=== PATIENT | female | born 1945 | race Caucasian/White ===

== ENCOUNTER → 2017-07-18 | Outpatient (CLI) | payer MEDICARE, BC ==
[~2017-07-18] MED LIST: ACETAMINOPHEN325 M1 PO; ALPRAZOLAM0.25 MG PO; BACTRIM DS TAB1 EACH PO; BENADRYL PO; BENTYL10 MG PO; CALCIUM + VITA1 EACH PO; CALCIUM 500+D1 EACH PO; CARAFATE1 GM/10 ML PO; CARVEDILOL3.125 MG PO; CATAPRES0.1 MG PO; CEFUROXIME250 MG PO; CHEWABLE MULTI1 EAC1 PO; COZAAR25 MG PO; CYANOCOBAL1000 MCG/M IM; EVISTA60 MG PO; FAMOTIDINE20 MG PO; FIORINAL 50-321 EACH PO; FLUOXETINE HCL20 MG PO; FUROSEMIDE40 MG PO; GABAPENTIN300 MG PO; HYDROXYZINE HCL25 MG PO; HYDROXYZINE PAM25 MG PO; JUICE PLUS FIBRE PO; JUICE PLUS PO; LEVSIN0.125 MG PO; LIDOCAINE 5% PATCH TOP; LIDODERM PATCH1 EA TP; MELOXICAM7.5 MG PO; MEPERIDINE HCL50 M1 PO; MULTIVITAMINS1 EAC7 PO; MYLANTA SUSP PO; PEPCID20 MG PO; PHENERGAN SUPP25 MG PR; PREDNISONE20 MG PO; PROAIR HFA INH8.5 GM INH; PROBIOTIC & AC1 EACH PO; PROBIOTIC COMP1 EACH PO; PROMETHEGAN12.5 MG RC; PROTEIN; PROTONIX40 MG PO; ROLOXIFENE PO; TEMAZEPAM15 MG PO; TYLENOL500 MG PO; VERAPAMIL HCL120 MG PO; Z VERAPAMIL HCL PO; Z.0.CIPRO500 MG PO; Z.0.LORAZEPAM0.5 MG PO; Z.0.PHENERGAN SUPP25 PR; Z.0.PROTONIX40 MG PO; Z.0.TEMAZEPAM15 MG PO; Z.1.FLUOXETINE HCL20 PO; ZOFRAN ODT4 MG PO; [UNRECOGNIZED DRUG - OTHER] IM; [UNRECOGNIZED DRUG - OTHER] PO; [UNRECOGNIZED DRUG - OTHER] PO; [UNRECOGNIZED DRUG - OTHER] PO; albuteral INH; benadryl PO
--- NOTE | 2017-07-18 15:05 | Diagnostic Imaging Report ---
PROCEDURE: C-SPINE AP AND LAT WITH FLEX AND EXT COMPARISON: Cervical spine series 04/05/17. INDICATIONS: EVALUATE FUSION STATUS FINDINGS: Cervical vertebral bodies can be visualized to the level of C6. The patient is status post ACDF at C4-5 and C6-7. These screws and hardware at C4-5 are stable without surrounding lucency to suggest loosening. The fusion plate at C6-7 is incompletely imaged on lateral image. The screws in C6 are intact without surrounding lucency to suggest loosening. The plate is intact the AP image. There is bony fusion from C4-C6 and likely C7. There is no evidence of motion with flexion or extension. There is mild posterior disc space narrowing of C3-4 without osteophytic lipping. The facets and spinous processes are normally aligned. There is mild facet arthropathy at C2-3 and C3-4. 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 Alignment is maintained on AP image. The skull base and upper chest are unremarkable. CONCLUSION: 1. Incomplete visualization of the fusion plate at C6-7 on lateral image. Otherwise, cervical hardware is stable without evidence of loosening. Stable bony fusion from C4-C6/7. 2. No motion with flexion or extension. 3. Mild degenerative changes of the cervical spine as described above. No progression compared to previous exam. 4. No new findings. Dictated by: Brendan Medina M.D. on 07/18/2017 at 15:13 Electronically approved by: Brendan Medina M.D. on 07/18/2017 at 15:13
== END ==
LOC: RAD 14:08
PROVIDERS: ATTEND Neurological Surgery
DX: M50.20 Other cervical disc displacement, unspecified cervical region (principal); Z98.1 Arthrodesis status
CPT/HCPCS: 72050

== ENCOUNTER 2018-03-09 14:38 | Inpatient (IN) | payer MEDICARE, BC ==
[~2018-03-09] VITALS: Ht 165.1 cm; Wt 74.8 kg
[2018-03-09] MEDS ORDERED: HYDROMORPHONE 20MG/ NS 100ML IV STA (15:40)
[2018-03-09 15:43] LABS: BASOPHILS % 0.8 % (0.0-1.0); EOSINOPHILS # (AUTO) 0.1 (0.0-0.4); EOSINOPHILS % 1.6 % (0.0-6.0); HEMATOCRIT 33.6 % (34.2-44.1); HEMOGLOBIN 10.5 g/dL (12.0-16.0); LYMPHOCYTES # (AUTO) 1.3 (1.0-3.2); LYMPHOCYTES % 33.4 % (18.0-39.1); MEAN CORPUSCULAR HEMOGLOBIN 28.2 pg (28-32); MEAN CORPUSCULAR HGB CONC 31.3 g/dL (31-35); MEAN CORPUSCULAR VOLUME 90.3 fL (81-99); MONOCYTES # (AUTO) 0.4 (0.2-0.8); MONOCYTES % 11.5 % (4.4-11.3); NEUTROPHILS % 52.7 % (38.7-80.0); PLATELET COUNT 152 x10e3/uL (140-360); RED BLOOD COUNT 3.72 x10e6/uL (3.6-5.1); RED CELL DISTRIBUTION WIDTH 15.9 % (11.7-14.4)
[2018-03-09 15:53] LABS: INR 1.09; PROTHROMBIN TIME 13.3 seconds (11.9-14.5)
[2018-03-09 15:54] LABS: PARTIAL THROMBOPLASTIN TIME 29.9 seconds (23.8-35.5)
[2018-03-09] MEDS ORDERED: HYDROCODONE/APAP 10MG-325MG TAB PO ONE (16:00)
[2018-03-09 16:04] LABS: ALBUMIN 3.7 g/dL (3.5-5.0); ALBUMIN/GLOBULIN RATIO 1.4 (0.8-2.0); ANION GAP 12.6 mmol/L (8-16); CREATININE, SERUM 1.03 mg/dL (0.57-1.11); POTASSIUM 4.6 mmol/L (3.5-5.1)
[2018-03-09 16:10] LABS: CREATINE KINASE MB 2.7 ng/mL (0-5.0)
[2018-03-09] MEDS ORDERED: SODIUM CHLORIDE 0.9% 50ML 50 ML ONE (16:11)
[2018-03-09] MEDS ORDERED: IOPAMIDOL 370 MG/ML 200 ML INFUS..BTL INJ ONE (16:11)
--- NOTE | 2018-03-09 16:28 | Diagnostic Imaging Report ---
EXAMINATION: CHEST SINGLE (PORTABLE) INDICATION: \S\ERMD ORDER \S\[id number] \S\1520 \S\Y COMPARISON: Chest radiograph 01/10/2017 FINDINGS: AP view TUBES and LINES: None. LUNGS: Lungs are well inflated. Lungs are clear. There is no evidence of pneumonia or pulmonary edema. PLEURA: No pleural effusion or pneumothorax. HEART AND MEDIASTINUM: The cardiomediastinal silhouette is unremarkable.. BONES AND SOFT TISSUES: Unchanged fixation of the cervical spine with orthopedic hardware. Surgical clips overlying the left upper quadrant. UPPER ABDOMEN: No free air under the diaphragm. IMPRESSION: No acute thoracic abnormality. Interval resolution of the right lower lobe pneumonia. Signed by: Dr. Alla Crane M.D. on 03/09/2018 3:30 PM
[2018-03-09] MEDS ORDERED: HYDROMORPHONE 1MG/1ML INJ IV ONE (16:30)
[2018-03-09] MEDS ORDERED: DIPHENHYDRAMINE HCL INJ 50 MG/ML VIAL IV ONE (16:30)
[2018-03-09 16:41] LABS: BILIRUBIN,URINE NEGATIVE (NEGATIVE); CLARITY,URINE CLEAR (CLEAR); COLOR,URINE YELLOW (YELLOW); KETONES,URINE NEGATIVE (NEGATIVE); LEUKOCYTE ESTERASE ,URINE TRACE (NEGATIVE); NITRITE,URINE NEGATIVE (NEGATIVE); PROTEIN,URINE DIPSTICK NEGATIVE (NEGATIVE); URINE UROBILINOGEN 0.2 mg/dL (0.2 - 1)
[2018-03-09 16:42] LABS: BACTERIA,URINE RARE /HPF; EPITHELIAL CELLS,URINE RARE /LPF; RBC,URINE 0-5 /HPF (0-5); WBC,URINE (MAN) 0-5 /HPF (0-5)
[2018-03-09] MEDS: SODIUM CHLORIDE 0.9% 1000ML 1,000 ML IV SCH (17:00)
--- NOTE | 2018-03-09 18:02 | Diagnostic Imaging Report ---
EXAM: CT Abdomen and Pelvis WITH contrast INDICATION: \S\RUQ abdominal pain \S\Y COMPARISON: CT abdomen and pelvis 01/09/2017 TECHNIQUE: Abdomen and pelvis were scanned utilizing a multidetector helical scanner from the lung base to the pubic symphysis after administration of IV contrast. Coronal and sagittal reformations were obtained. Routine protocol was performed. Scan was performed when during portal venous phase. IV CONTRAST: 100 mL of Isovue-370 ORAL CONTRAST: Water RADIATION DOSE: Total DLP: 510.4 mGy*cm Estimated effective dose: (DLP x 0.015 x size factor) mSv COMPLICATIONS: None FINDINGS: LINES and TUBES: None. LOWER THORAX: Linear scarring in the left lower lobe is unchanged.9 interval resolution of the centrilobular pulmonary nodules consistent with resolving infection. Trace pericardial effusion. HEPATOBILIARY: No focal hepatic lesions. Persistent diffuse dilatation of the intra and extrahepatic ducts. The common bile measure 1.3 cm in diameter, unchanged. There is no hyperdensities within the bile ducts. GALLBLADDER: Cholecystectomy. SPLEEN: No splenomegaly. PANCREAS: The pancreatic head is not well visualized. There is atrophy of the pancreatic body and tail. There are multiple surgical clips within the anterior abdomen, anterior to the pancreas and the spleen, unchanged. ADRENALS: No adrenal nodules KIDNEYS/URETERS: Kidneys enhance symmetrically. No hydronephrosis. No cystic or solid mass lesions. No stones. GI TRACT: There is persistent distention of the colon, worse in the transverse measuring 6.3 cm in diameter and containing large amount of retained stool is suggestive of chronic constipation. There are a few loops of small bowel in the left abdomen that are also mildly distended measuring up to 2.8 cm on series 2, image 36, unchanged when compared to prior exam. Postsurgical changes in the right cecum. Postsurgical changes related to low rectal resection and bariatric surgery PELVIC ORGANS/BLADDER: Unchanged hysterectomy and bilateral oophorectomies. The urinary bladder is mildly distended. LYMPH NODES: No lymphadenopathy. VESSELS: The abdominal aorta and pelvic arteries are normal in caliber and associated with scattered atherosclerotic calcifications. The celiac trunk, a semi-, ARTIE, and single bilateral renal arteries are widely patent. PERITONEUM / RETROPERITONEUM: No free air or fluid. BONES: Degenerative changes of the lumbar spine. SOFT TISSUES: Postsurgical changes in the anterior abdominal wall with evidence of repair with mesh. Diastases of the rectus abdominis muscle and atrophy of the anterior abdominal wall. IMPRESSION: 1. Postsurgical changes related to low rectal resection and bariatric surgery, stable. 2. Persistent diffuse dilatation of the colon and few loops of small bowel in the left abdomen with large amount of retained stool suggestive of long-standing constipation. - No transition point identified. 3. Persistent intra and extrahepatic biliary duct dilatation more than expected after cholecystectomy. Consider further evaluation with MRI abdomen with and without contrast with MRCP. Signed by: Dr. Alla Crane M.D. on 03/09/2018 5:59 PM
[2018-03-09] MEDS ORDERED: ONDANSETRON HCL INJ 2 MG/ML VIAL IV PRN (20:15)
[2018-03-09 21:31] VITALS: BP_SYST 152; BP_SYST 193; BP_DIAS 72; BP_DIAS 91
[2018-03-09 22:26] VITALS: BP 159/72
[2018-03-10] VITALS (8 sets, daily range): BP systolic 132–184; BP diastolic 65–79
[2018-03-10] MEDS: SODIUM CHLORIDE 0.9% 1000ML 1,000 ML IV SCH ×3 (02:45→12:02)
[2018-03-10 05:13] LABS: BASOPHILS % 0.8 % (0.0-1.0); EOSINOPHILS # (AUTO) 0.1 (0.0-0.4); EOSINOPHILS % 2.8 % (0.0-6.0); HEMATOCRIT 33.5 % (34.2-44.1); HEMOGLOBIN 10.4 g/dL (12.0-16.0); LYMPHOCYTES % 37.8 % (18.0-39.1); MEAN CORPUSCULAR HEMOGLOBIN 28.7 pg (28-32); MEAN CORPUSCULAR VOLUME 92.3 fL (81-99); MONOCYTES # (AUTO) 0.3 (0.2-0.8); NEUTROPHILS # (AUTO) 1.2 (2.1-6.9); NEUTROPHILS % 46.2 % (38.7-80.0); PLATELET COUNT 147 x10e3/uL (140-360); RED BLOOD COUNT 3.63 x10e6/uL (3.6-5.1); RED CELL DISTRIBUTION WIDTH 15.9 % (11.7-14.4)
[2018-03-10 05:44] LABS: ALANINE AMINOTRANSFERASE 16 IU/L (0-55); ALBUMIN 3.4 g/dL (3.5-5.0); ALBUMIN/GLOBULIN RATIO 1.4 (0.8-2.0); ALKALINE PHOSPHATASE 94 IU/L (40-150); AMYLASE 138 U/L (25-125); ANION GAP 9.9 mmol/L (8-16); BLOOD UREA NITROGEN 12 mg/dL (7-26); BUN/CREATININE RATIO 14 (6-25); CALCIUM 8.5 mg/dL (8.4-10.2); CARBON DIOXIDE 22 mmol/L (22-29); CHLORIDE 106 mmol/L (98-107); CREATININE, SERUM 0.84 mg/dL (0.57-1.11); EST GLOMERULAR FILTRATION RATE > 60 ML/MIN (60-); GLUCOSE 76 mg/dL (74-118); LIPASE 10 U/L (8-78); POTASSIUM 3.9 mmol/L (3.5-5.1); SODIUM 134 mmol/L (136-145)
[2018-03-10] MEDS ORDERED: PANTOPRAZOLE 40 MG 10ML VIAL IV SCH (09:00)
[2018-03-10] MEDS ORDERED: PROMETHAZINE 25MG/ NS 50ML (IV) IV PRN (11:45)
[2018-03-10] MEDS: HYDROCODONE/APAP 5MG-325MG TAB PO PRN ×2 (12:15→18:36)
[2018-03-10] MEDS ORDERED: PROMETHAZINE HCL 25 MG SUPP PR PRN (12:45)
[2018-03-10] MEDS ORDERED: FUROSEMIDE 40 MG TAB PO PRN (12:45)
[2018-03-10] MEDS ORDERED: ONDANSETRON HCL 4 MG ORAL DISINTEGRATING TAB PO PRN (12:45)
--- NOTE | 2018-03-10 13:20 | History and Physical ---
CLINICAL HISTORY: This is a 72-year-old white woman with a complicated GI history admitted via the emergency room yesterday because of abdominal pains with radiation to the right shoulder. The emergency room physician had contacted Dr. Todd, and decision was made to admit the patient and to treat her with enema. 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 James Guevara. The patient apparently has not been seen since, and her wanted her to be seen as soon as possible. I was just notified about this case 10 minutes prior and am seeing the patient for Dr. Todd. PAST MEDICAL HISTORY: Remarkable for previous bariatric surgery, which was complicated by pain and scar tissue. There is history of gastrectomy and partial colectomy as well as cholecystectomy. She has had previous admissions for abdominal pains dating back to 2011. 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 She also has leukopenia, white count 2500. MEDICATIONS AT HOME: Include albuterol, alprazolam, calcium carbonate, Catapres, B12, Bentyl, famotidine, fluoxetine, furosemide, gabapentin, hydroxyzine, probiotic, Losartan, multivitamin, Zofran, Protonix, Phenergan and temazepam. PERSONAL AND SOCIAL HISTORY: There is history of smoking, but none recently. She denies alcohol or drug abuse. TRUE ALLERGIES: NONE KNOWN. REVIEW OF SYSTEMS: Noncontributory. PHYSICAL EXAMINATION GENERAL: She is alert and coherent. Still having abdominal pain. CARDIAC: Jugular veins are not distended. S1, S2 are regular. There is no appreciable murmur. LUNGS: Clear. ABDOMEN: Very tender. There is considerable guarding. Bowel sounds were present. EXTREMITIES: No cyanosis, clubbing or edema. LABORATORY STUDIES: CT scan showed a massive amount of stool suggestive of longstanding constipation. Postsurgical changes consistent with low rectal resection and bariatric surgery. There is extrahepatic bile duct dilatation more than expected after cholecystectomy. Consider MRCP. White count is 2500, hemoglobin 10.4, platelet count 147,000. INR is 1.09. Urinalysis: Trace leukocyte esterase. Sodium 134, BUN 12, creatinine 0.84, albumin 3.4, amylase 138, lipase 10. IMPRESSION 1. Consider choledocholithiasis with dilated bile duct and pain to the right shoulder. 2. Longstanding constipation and diarrhea. 3. History of bariatric surgery with associated complications. 4. History of lower colon resection. 5. Chronic scratching causing open wounds in the epigastric region. 6. Mild hyponatremia. 7. Leukopenia. 8. History of hypertension. 9. Anxiety. 10. Anemia. 11. Fibromyalgia. 12. Leukopenia. RECOMMENDATIONS: GI consultation. Relieve constipation. MRCP. Job#: [id number] cc:CHINA TODD MD
[2018-03-10] MEDS ORDERED: PEG (High)/E-LYTE SOLN 4,000 ML BTL PO ONE (13:30)
[2018-03-10] MEDS: GABAPENTIN 300 MG CAP PO SCH (13:51)
[2018-03-10] MEDS: FLUOXETINE HCL 20 MG CAP PO SCH (13:51)
[2018-03-10] MEDS: LACTOBACILLUS ACIDOPHILUS CAPSULE PO SCH (13:51)
[2018-03-10] MEDS: DICYCLOMINE HCL 10 MG CAP PO SCH ×3 (13:51→20:45)
[2018-03-10] MEDS: HYDROXYZINE HCL 25 MG TAB PO SCH (13:51)
[2018-03-10 14:21] LABS: CREATINE KINASE MB 2.8 ng/mL (0-5.0)
[2018-03-10] MEDS: POLYETHYLENE GLYCOL 3350 17 GM PACK PO SCH ×2 (15:31→20:45)
[2018-03-10] MEDS ORDERED: PANTOPRAZOLE SODIUM 40 MG SUSPDR.PKT PO SCH (16:30)
[2018-03-10] MEDS: LOSARTAN POTASSIUM 25 MG TAB PO SCH (17:23)
[2018-03-10] MEDS: FAMOTIDINE 20 MG TAB PO SCH (17:23)
[2018-03-10] MEDS: TEMAZEPAM 15 MG CAP PO SCH (20:45)
[2018-03-10] MEDS: CLONIDINE HCL 0.1 MG TAB PO SCH (20:45)
[2018-03-10] MEDS ORDERED: PANTOPRAZOLE 40 MG 10ML VIAL IV STA (20:47)
[2018-03-10] MEDS ORDERED: DONNATAL/LIDOCAINE/MAALOX 30 ML SUSP PO ONE (21:00)
[2018-03-11] MEDS: SODIUM CHLORIDE 0.9% 1000ML 1,000 ML IV SCH ×2 (04:03→16:03)
[2018-03-11] MEDS: HYDROCODONE/APAP 5MG-325MG TAB PO PRN ×3 (05:27→21:36)
[2018-03-11 05:30] VITALS: BP 131/62
--- NOTE | 2018-03-11 05:57 | Diagnostic Imaging Report ---
ADDENDUM #[address] from 03/09/2018 Signed by: Dr Ngozi Lares MD on 03/11/2018 5:16 AM ORIGINAL REPORT EXAM: MRI MRCP WO DATE: 03/10/2018 12:45 PM INDICATION: Dilated bile ducts, reported intractable vomiting and right upper quadrant pain. Reported normal bilirubin. COMPARISON: Recent CT from 2017 TECHNIQUE: Multiplanar, multisequence imaging of the abdomen was performed without IV administration of gadolinium. 3-D MRCP fat-saturated sequence was performed post contrast with MIP reformations. FINDINGS: Image quality is degraded by motion artifact. HEPATOBILIARY: Liver is normal in contour and signal. The patient is status post cholecystectomy. There is moderate intrahepatic and extrahepatic biliary ductal dilation, the common bile duct measuring up to 1.1 cm without evidence of obstructing stone or lesion. OTHER: Unremarkable appearance of the spleen, adrenal gland, and kidneys. A 1.5 cm cystic structure which appears contiguous with the proximal pancreatic duct (MRCP series 11 image 15) most likely reflects a side branch IPMN; no main pancreatic ductal dilation.. Susceptibility artifact related to prior gastric bypass and ventral hernia repair. No free fluid. IMPRESSION: Evaluation degraded by motion artifact 1. Moderate biliary ductal dilation, which can be normal status post cholecystectomy given reported normal bilirubin. No evidence of choledocholithiasis. 2. Likely 1.5 cm side branch IPMN of the pancreatic head; no main duct dilation. Attention on [address] or MRI/MRCP pancreas protocol. Signed by: Dr Ngozi Lares MD on 03/11/2018 4:46 AM
[2018-03-11 08:18] VITALS: BP 147/68
[2018-03-11] MEDS: POLYETHYLENE GLYCOL 3350 17 GM PACK PO SCH ×3 (09:00→20:44)
[2018-03-11] MEDS: FLUOXETINE HCL 20 MG CAP PO SCH (09:05)
[2018-03-11] MEDS: MULTIVITAMINS/MINERALS TAB PO SCH (09:05)
[2018-03-11] MEDS: FAMOTIDINE 20 MG TAB PO SCH ×2 (09:05→17:43)
[2018-03-11] MEDS: LOSARTAN POTASSIUM 25 MG TAB PO SCH ×2 (09:05→17:43)
[2018-03-11] MEDS: DICYCLOMINE HCL 10 MG CAP PO SCH ×4 (09:05→20:43)
[2018-03-11] MEDS: GABAPENTIN 300 MG CAP PO SCH (09:05)
[2018-03-11] MEDS: PANTOPRAZOLE 40 MG 10ML VIAL IV SCH ×2 (09:05→17:43)
[2018-03-11] MEDS: HYDROXYZINE HCL 25 MG TAB PO SCH (09:05)
[2018-03-11] MEDS: LACTOBACILLUS ACIDOPHILUS CAPSULE PO SCH (09:05)
[2018-03-11 11:34] VITALS: BP 156/64
[2018-03-11 16:11] VITALS: BP 148/65
[2018-03-11 18:06] VITALS: BP 148/65
[2018-03-11 19:55] VITALS: BP 160/80
[2018-03-11] MEDS: CLONIDINE HCL 0.1 MG TAB PO SCH (20:43)
[2018-03-11] MEDS: TEMAZEPAM 15 MG CAP PO SCH (20:44)
[2018-03-12] MEDS: ALPRAZOLAM 0.25 MG TAB PO PRN ×2 (00:05→21:30)
[2018-03-12 00:46] VITALS: BP 175/81
[2018-03-12 04:00] VITALS: BP 166/74
[2018-03-12 05:27] LABS: ANION GAP 8.7 mmol/L (8-16); BLOOD UREA NITROGEN 7 mg/dL (7-26); BUN/CREATININE RATIO 9 (6-25); CALCIUM 8.4 mg/dL (8.4-10.2); CARBON DIOXIDE 22 mmol/L (22-29); CHLORIDE 107 mmol/L (98-107); CREATININE, SERUM 0.81 mg/dL (0.57-1.11); EST GLOMERULAR FILTRATION RATE > 60 ML/MIN (60-); GLUCOSE 81 mg/dL (74-118); POTASSIUM 3.7 mmol/L (3.5-5.1); SODIUM 134 mmol/L (136-145)
[2018-03-12 08:00] VITALS: BP 159/92
[2018-03-12] MEDS: POLYETHYLENE GLYCOL 3350 17 GM PACK PO SCH ×3 (09:00→21:00)
[2018-03-12] MEDS: LACTOBACILLUS ACIDOPHILUS CAPSULE PO SCH (09:00)
[2018-03-12] MEDS: FLUOXETINE HCL 20 MG CAP PO SCH (11:09)
[2018-03-12] MEDS: DICYCLOMINE HCL 10 MG CAP PO SCH ×4 (11:09→21:09)
[2018-03-12] MEDS: LOSARTAN POTASSIUM 25 MG TAB PO SCH ×2 (11:09→18:00)
[2018-03-12] MEDS: GABAPENTIN 300 MG CAP PO SCH (11:09)
[2018-03-12] MEDS: FAMOTIDINE 20 MG TAB PO SCH ×2 (11:09→18:00)
[2018-03-12] MEDS: MULTIVITAMINS/MINERALS TAB PO SCH (11:09)
[2018-03-12] MEDS: HYDROXYZINE HCL 25 MG TAB PO SCH (11:09)
[2018-03-12] MEDS: PANTOPRAZOLE 40 MG 10ML VIAL IV SCH ×2 (11:09→18:00)
--- NOTE | 2018-03-12 11:57 | Operative Report ---
DATE OF PROCEDURE: March 12, 2018 REFERRING PHYSICIAN: Dr. Isak Todd. PROCEDURE PERFORMED: Esophagogastroduodenoscopy with esophageal dilatation. INDICATIONS FOR PROCEDURE: Upper abdominal pain, dysphagia. MEDICATION: Patient was done under MAC. Please see anesthesiologist's note. PROCEDURE: With the patient in left lateral decubitus position, flexible fiberoptic Olympus gastroscope was introduced into the esophagus under direct visualization without any difficulty. There were some patchy erythema noted in the distal esophagus. Postoperative changes were noted at the GE junction and the esophagus was dilated to size 54-[place]cu[place] Rahman. The scope was then advanced with ease into the stomach, and patient is status post Constantine-en-Y, and the anastomotic site appeared intact. The scope was subsequently withdrawn. Patient tolerated the procedure well. IMPRESSION 1. Mild distal esophagitis. 2. Esophagus dilated to size 54-[place]cu[place] Rahman. 3. Status post Constantine-en-Y. Anastomosis intact. PLAN: Findings do not explain patient's symptoms. We will start on a GI soft diet. We will discuss with the attending. Job#: [id number] ARY cc:DR. ISAK TODD
[2018-03-12 12:00] VITALS: BP 157/69
--- NOTE | 2018-03-12 14:16 | Diagnostic Imaging Report ---
EXAM: ABDOMEN-1VIEW (KUB) DATE: 03/12/2018 10:00 AM INDICATION: Constipation. COMPARISON: 03/09/2018 CT FINDINGS: Ventral hernia repair changes. Post cervical changes left upper quadrant/GE junction. Nonspecific bowel gas pattern with no distinct small bowel obstructive change or pneumoperitoneum within limitations of supine positioning and motion. Stool burden not overly prominent. IMPRESSION: Stable chronic changes. Signed by: Dr. Devaughn Gifford MD on 03/12/2018 2:13 PM
[2018-03-12 16:00] VITALS: BP 147/66
[2018-03-12] MEDS: HYDROCODONE/APAP 5MG-325MG TAB PO PRN (16:05)
[2018-03-12] MEDS ORDERED: PROPOFOL IV EMULSION 10 MG/ML 20 ML VIAL ONE (17:20)
[2018-03-12] MEDS ORDERED: FENTANYL CITRATE/PF 100MCG/2 ML INJ ONE (18:13)
[2018-03-12] MEDS ORDERED: MIDAZOLAM HCL 2 MG/2 ML VIAL ONE (18:13)
[2018-03-12 20:00] VITALS: BP 137/60
[2018-03-12] MEDS: CLONIDINE HCL 0.1 MG TAB PO SCH (21:09)
[2018-03-12] MEDS: TEMAZEPAM 15 MG CAP PO SCH (21:09)
[2018-03-12] MEDS: SODIUM CHLORIDE 0.9% 1000ML 1,000 ML IV SCH (21:09)
[2018-03-13] VITALS (7 sets, daily range): BP systolic 137–159; BP diastolic 61–68
[2018-03-13] MEDS: GABAPENTIN 300 MG CAP PO SCH (09:29)
[2018-03-13] MEDS: PANTOPRAZOLE 40 MG 10ML VIAL IV SCH ×2 (09:29→17:26)
[2018-03-13] MEDS: DICYCLOMINE HCL 10 MG CAP PO SCH ×4 (09:29→21:07)
[2018-03-13] MEDS: LOSARTAN POTASSIUM 25 MG TAB PO SCH ×2 (09:29→17:27)
[2018-03-13] MEDS: FLUOXETINE HCL 20 MG CAP PO SCH (09:29)
[2018-03-13] MEDS: POLYETHYLENE GLYCOL 3350 17 GM PACK PO SCH ×3 (09:29→21:00)
[2018-03-13] MEDS: LACTOBACILLUS ACIDOPHILUS CAPSULE PO SCH (09:29)
[2018-03-13] MEDS: HYDROXYZINE HCL 25 MG TAB PO SCH (09:29)
[2018-03-13] MEDS: FAMOTIDINE 20 MG TAB PO SCH ×2 (09:29→17:27)
[2018-03-13] MEDS: MULTIVITAMINS/MINERALS TAB PO SCH (09:29)
[2018-03-13] MEDS: HYDROCODONE/APAP 5MG-325MG TAB PO PRN ×2 (11:06→21:08)
[2018-03-13] MEDS ORDERED: DIATRIZOATE MEGL/DIATRIZOA SOD 30 ML BTL PO ONE (12:37)
[2018-03-13] MEDS ORDERED: IOPAMIDOL 370 MG/ML 200 ML INFUS..BTL INJ ONE (15:32)
[2018-03-13] MEDS ORDERED: SODIUM CHLORIDE 0.9% 50ML 50 ML ONE (15:32)
--- NOTE | 2018-03-13 16:43 | Consultation ---
DATE OF CONSULTATION: March 13, 2018 REASON FOR CONSULTATION: Abdominal pain. HISTORY OF PRESENT ILLNESS: This patient is a well known to me. She is a 72-year-old white female who had multiple abdominal surgeries, mesh surgery who was treated with IV antibiotic and then oral antibiotic. She had multiple abdominal surgeries. Infection was subsided and she was on suppressive treatment. She was doing good. The patient is being admitted with abdominal pain. Patient came in on March 11 and I was asked to see her today. The patient said that she had abdominal pain in the right upper quadrant which she had for 2 weeks. When she came here she had no fever and no chills. No nausea, no vomiting and no diarrhea. Patient was seen by GI. Apparently, infectious disease was consulted. The patient is a 72-year-old who has history of bariatric surgery which got complicated by multiple abdominal surgeries and after that she also had gastrectomy, partial colectomy, cholecystectomy, abdominal wound infection, recurrent. She has been stable recently with suppressive treatment on doxycycline. She comes in now with abdominal pain. The patient is currently laying in bed comfortably. PAST MEDICAL HISTORY: As above. PAST SURGICAL HISTORY: As above. ALLERGIES: NKA. SOCIAL HISTORY: There is smoking. No drug abuse, alcohol abuse. FAMILY HISTORY: Noncontributory. MEDICATION: She is on acetaminophen, hydrocodone, Protonix, multivitamin, Cozaar. REVIEW OF SYSTEMS: HEENT: There is no headache, visual changes or hearing changes. GI: Abdominal pain. No nausea, no vomiting, no diarrhea. CARDIAC: There is no arrhythmia. NEURO: No seizure activity. SKIN: No rash. LABORATORY DATA: White count on admission was 3.74, hemoglobin is 10, hematocrit 33. Her sodium 134, potassium 3.7. PHYSICAL EXAMINATION: GENERAL: She is currently alert and oriented and does not seem to be in acute distress. Afebrile. HEENT: She does not appear icteric. NECK: Supple. No JVD. No lymphadenopathy and no thyromegaly. CHEST: Clear bilaterally. HEART: S1 and S2, no murmur. ABDOMEN: Soft. She did have moving induration. I can feel in the right upper quadrant, feels like part of intestine moving, but I do not feel induration. I do not see redness. IMPRESSION: Abdominal pain probably GI related. I do not think it is an abscess. There is no need for antibiotic. Consider treatment for hyperactivity of GI and intestine. Surgical consultation. CAT scan has been ordered. Discussed with the patient and discussed with internal medicine. Job#: [id number] GH
--- NOTE | 2018-03-13 17:55 | Diagnostic Imaging Report ---
EXAM: CT of the abdomen and pelvis WITH contrast HISTORY: CONSTIPATION AND COLONIC DISTENSION COMPARISON: CT of the abdomen and pelvis March 09, 2018. Radiographs of the abdomen March 12, 2018.. TECHNIQUE: The abdomen and pelvis were scanned utilizing a multidetector helical scanner. Coronal and sagittal reformats are provided. PROTOCOL: Routine IV CONTRAST: 100 cc of Isovue-370. ORAL CONTRAST: Dilute Gastrografin RADIATION DOSE: Total DLP: 349.3 mGy*cm Estimated effective dose: (DLP x 0.015 x size factor) COMPLICATIONS: None FINDINGS: LINES and TUBES: None. LOWER THORAX: Stable linear opacities at the left lung base, compatible with atelectasis versus scarring. HEPATOBILIARY: Slightly less dilation of the intra and hepatic biliary ducts. Please refer to the recent MRI of the abdomen for further details regarding the biliary ducts. GALLBLADDER: Status post cholecystectomy. SPLEEN: No splenomegaly. PANCREAS: The pancreas is partially obscured, atrophy of the visualized pancreatic body and tail. Multiple surgical clips within the upper abdomen about the pancreas and spleen. ADRENALS: No adrenal nodules KIDNEYS/URETERS: Mild atrophy of the left kidney. No hydronephrosis. No cystic or solid mass lesions. No stones. GI TRACT: Bowel gas and stool throughout the small bowel and colon, radiopaque contrast throughout the majority of the small bowel. Interval decreased distention of the colon. Unchanged multifocal postsurgical changes. PELVIC ORGANS/BLADDER: Unchanged postsurgical changes. The urinary bladder is unremarkable. LYMPH NODES: No lymphadenopathy. VESSELS: Diffuse scattered atherosclerotic vascular calcifications. PERITONEUM / RETROPERITONEUM: No free air or fluid. BONES: Unchanged scattered degenerative changes of the lumbar spine. SOFT TISSUES: Unchanged postsurgical changes in the anterior abdominal wall and muscle atrophy. IMPRESSION: 1. Interval decreased colonic distention. 2. Multifocal postsurgical changes. 3. Refer to the recent MRI for further details regarding the biliary ducts and pancreas. Signed by: Dr. Johnathan Snider D.O., M.M.M. on 03/13/2018 5:51 PM
[2018-03-13] MEDS: CLONIDINE HCL 0.1 MG TAB PO SCH (21:08)
[2018-03-13] MEDS: TEMAZEPAM 15 MG CAP PO SCH (21:08)
[2018-03-14] VITALS (8 sets, daily range): BP systolic 139–178; BP diastolic 61–77
[2018-03-14] MEDS: HYDROCODONE/APAP 5MG-325MG TAB PO PRN ×3 (03:00→22:16)
[2018-03-14] MEDS: FLUOXETINE HCL 20 MG CAP PO SCH (09:43)
[2018-03-14] MEDS: LOSARTAN POTASSIUM 25 MG TAB PO SCH ×2 (09:43→17:02)
[2018-03-14] MEDS: POLYETHYLENE GLYCOL 3350 17 GM PACK PO SCH ×3 (09:43→21:26)
[2018-03-14] MEDS: MULTIVITAMINS/MINERALS TAB PO SCH (09:43)
[2018-03-14] MEDS: PANTOPRAZOLE 40 MG 10ML VIAL IV SCH ×2 (09:43→17:02)
[2018-03-14] MEDS: HYDROXYZINE HCL 25 MG TAB PO SCH (09:43)
[2018-03-14] MEDS: DICYCLOMINE HCL 10 MG CAP PO SCH ×4 (09:43→21:26)
[2018-03-14] MEDS: FAMOTIDINE 20 MG TAB PO SCH ×2 (09:43→17:02)
[2018-03-14] MEDS: LACTOBACILLUS ACIDOPHILUS CAPSULE PO SCH (09:43)
[2018-03-14] MEDS: SODIUM CHLORIDE 0.9% 1000ML 1,000 ML IV SCH ×3 (09:44→23:11)
[2018-03-14] MEDS: TEMAZEPAM 15 MG CAP PO SCH (21:26)
[2018-03-14] MEDS: CLONIDINE HCL 0.1 MG TAB PO SCH (21:26)
[2018-03-15] VITALS (7 sets, daily range): BP systolic 134–176; BP diastolic 60–85
[2018-03-15] MEDS: HYDROCODONE/APAP 5MG-325MG TAB PO PRN ×2 (04:50→15:04)
[2018-03-15] MEDS: HYDROXYZINE HCL 25 MG TAB PO SCH (09:30)
[2018-03-15] MEDS: DICYCLOMINE HCL 10 MG CAP PO SCH ×4 (09:30→20:59)
[2018-03-15] MEDS: FLUOXETINE HCL 20 MG CAP PO SCH (09:30)
[2018-03-15] MEDS: MULTIVITAMINS/MINERALS TAB PO SCH (09:30)
[2018-03-15] MEDS: FAMOTIDINE 20 MG TAB PO SCH ×2 (09:30→17:24)
[2018-03-15] MEDS: LACTOBACILLUS ACIDOPHILUS CAPSULE PO SCH (09:30)
[2018-03-15] MEDS: POLYETHYLENE GLYCOL 3350 17 GM PACK PO SCH ×3 (09:30→20:59)
[2018-03-15] MEDS: LOSARTAN POTASSIUM 25 MG TAB PO SCH ×2 (09:30→17:24)
[2018-03-15] MEDS: PANTOPRAZOLE 40 MG 10ML VIAL IV SCH ×2 (09:30→17:23)
[2018-03-15] MEDS: SODIUM CHLORIDE 0.9% 1000ML 1,000 ML IV SCH (12:34)
[2018-03-15] MEDS: CLONIDINE HCL 0.1 MG TAB PO SCH (20:59)
[2018-03-15] MEDS: AMITRIPTYLINE HCL 25 MG TAB PO SCH (21:00)
[2018-03-15] MEDS: TEMAZEPAM 15 MG CAP PO SCH (21:36)
[2018-03-16] VITALS (8 sets, daily range): BP systolic 106–149; BP diastolic 48–95
[2018-03-16] MEDS: SODIUM CHLORIDE 0.9% 1000ML 1,000 ML IV SCH ×2 (01:51→14:37)
[2018-03-16 05:07] LABS: BASOPHILS % 0.7 % (0.0-1.0); EOSINOPHILS # (AUTO) 0.1 (0.0-0.4); EOSINOPHILS % 2.3 % (0.0-6.0); HEMATOCRIT 32.6 % (34.2-44.1); HEMOGLOBIN 10.4 g/dL (12.0-16.0); LYMPHOCYTES # (AUTO) 1.2 (1.0-3.2); LYMPHOCYTES % 38.9 % (18.0-39.1); MEAN CORPUSCULAR HEMOGLOBIN 28.6 pg (28-32); MEAN CORPUSCULAR HGB CONC 31.9 g/dL (31-35); MEAN CORPUSCULAR VOLUME 89.6 fL (81-99); MONOCYTES # (AUTO) 0.4 (0.2-0.8); NEUTROPHILS # (AUTO) 1.3 (2.1-6.9); NEUTROPHILS % 43.8 % (38.7-80.0); PLATELET COUNT 122 x10e3/uL (140-360); RED BLOOD COUNT 3.64 x10e6/uL (3.6-5.1); RED CELL DISTRIBUTION WIDTH 15.5 % (11.7-14.4)
[2018-03-16 05:26] LABS: ANION GAP 11.7 mmol/L (8-16); BLOOD UREA NITROGEN 11 mg/dL (7-26); BUN/CREATININE RATIO 15 (6-25); CALCIUM 8.7 mg/dL (8.4-10.2); CARBON DIOXIDE 22 mmol/L (22-29); CHLORIDE 110 mmol/L (98-107); CREATININE, SERUM 0.75 mg/dL (0.57-1.11); EST GLOMERULAR FILTRATION RATE > 60 ML/MIN (60-); GLUCOSE 82 mg/dL (74-118); POTASSIUM 3.7 mmol/L (3.5-5.1); SODIUM 140 mmol/L (136-145)
[2018-03-16] MEDS: POLYETHYLENE GLYCOL 3350 17 GM PACK PO SCH ×3 (09:15→21:05)
[2018-03-16] MEDS: LOSARTAN POTASSIUM 25 MG TAB PO SCH ×2 (09:15→18:03)
[2018-03-16] MEDS: DICYCLOMINE HCL 10 MG CAP PO SCH ×4 (09:15→21:05)
[2018-03-16] MEDS: HYDROXYZINE HCL 25 MG TAB PO SCH (09:15)
[2018-03-16] MEDS: PANTOPRAZOLE 40 MG 10ML VIAL IV SCH ×2 (09:15→18:03)
[2018-03-16] MEDS: FLUOXETINE HCL 20 MG CAP PO SCH (09:16)
[2018-03-16] MEDS: MULTIVITAMINS/MINERALS TAB PO SCH (09:16)
[2018-03-16] MEDS: FAMOTIDINE 20 MG TAB PO SCH ×2 (09:16→18:03)
[2018-03-16] MEDS: LACTOBACILLUS ACIDOPHILUS CAPSULE PO SCH (09:16)
[2018-03-16] MEDS: HYDROCODONE/APAP 5MG-325MG TAB PO PRN ×2 (10:15→21:50)
[2018-03-16] MEDS: TEMAZEPAM 15 MG CAP PO SCH (21:05)
[2018-03-16] MEDS: AMITRIPTYLINE HCL 25 MG TAB PO SCH (21:05)
[2018-03-16] MEDS: CLONIDINE HCL 0.1 MG TAB PO SCH (21:05)
[2018-03-17] VITALS (7 sets, daily range): BP systolic 120–167; BP diastolic 51–83
[2018-03-17] MEDS: SODIUM CHLORIDE 0.9% 1000ML 1,000 ML IV SCH ×2 (00:18→17:51)
[2018-03-17] MEDS: LOSARTAN POTASSIUM 25 MG TAB PO SCH ×2 (08:35→18:22)
[2018-03-17] MEDS: LACTOBACILLUS ACIDOPHILUS CAPSULE PO SCH (08:35)
[2018-03-17] MEDS: MULTIVITAMINS/MINERALS TAB PO SCH (08:35)
[2018-03-17] MEDS: DICYCLOMINE HCL 10 MG CAP PO SCH ×4 (08:35→21:06)
[2018-03-17] MEDS: FAMOTIDINE 20 MG TAB PO SCH ×2 (08:35→18:22)
[2018-03-17] MEDS: FLUOXETINE HCL 20 MG CAP PO SCH (08:35)
[2018-03-17] MEDS: HYDROXYZINE HCL 25 MG TAB PO SCH (08:35)
[2018-03-17] MEDS: PANTOPRAZOLE 40 MG 10ML VIAL IV SCH ×2 (09:00→17:00)
[2018-03-17] MEDS: HYDROCODONE/APAP 5MG-325MG TAB PO PRN (09:00)
[2018-03-17] MEDS: CLONIDINE HCL 0.1 MG TAB PO SCH (21:07)
[2018-03-17] MEDS: AMITRIPTYLINE HCL 25 MG TAB PO SCH (21:08)
[2018-03-17] MEDS ORDERED: HYDROCODONE/APAP 5MG-325MG TAB PO PRN (21:30)
[2018-03-18] VITALS: BP 146/106
[2018-03-18 04:00] VITALS: BP 158/68
[2018-03-18] MEDS: SODIUM CHLORIDE 0.9% 1000ML 1,000 ML IV SCH (07:11)
[2018-03-18 08:00] VITALS: BP 152/88
[2018-03-18] MEDS: FAMOTIDINE 20 MG TAB PO SCH (08:35)
[2018-03-18] MEDS: LACTOBACILLUS ACIDOPHILUS CAPSULE PO SCH (08:35)
[2018-03-18] MEDS: FLUOXETINE HCL 20 MG CAP PO SCH (08:35)
[2018-03-18] MEDS: MULTIVITAMINS/MINERALS TAB PO SCH (08:35)
[2018-03-18] MEDS: DICYCLOMINE HCL 10 MG CAP PO SCH (08:35)
[2018-03-18] MEDS: HYDROXYZINE HCL 25 MG TAB PO SCH (08:35)
[2018-03-18] MEDS: LOSARTAN POTASSIUM 25 MG TAB PO SCH (08:35)
[2018-03-18] MEDS: PANTOPRAZOLE 40 MG 10ML VIAL IV SCH (09:00)
[2018-03-18 09:29] VITALS: BP 152/88
[2018-03-18] MEDS ORDERED: AMITRIPTYLINE H25 MG PO (10:02)
[2018-03-18] MEDS ORDERED: TEMAZEPAM 15 MG CAP PO SCH (21:00)
== END 2018-03-18 12:00 | disposition home or self-care (01) | DRG 392 ==
LOC: ER 14:41 → ERHOLD 20:25 → MED/SURG2 21:52 → OBSVTOIN 03-11 16:05
PROVIDERS: ADMIT Internal Medicine; ATTEND Internal Medicine
PROC: 0D758ZZ Dilation of Esophagus, Via Natural or Artificial Opening Endoscopic (ICD-10-PCS; principal; 2018-03-12 10:16)
DX: R10.13 Epigastric pain (principal); E87.1 Hypo-osmolality and hyponatremia; N39.0 Urinary tract infection, site not specified; D72.819 Decreased white blood cell count, unspecified; M79.7 Fibromyalgia; I10 Essential (primary) hypertension; Z98.84 Bariatric surgery status; R13.10 Dysphagia, unspecified; J45.909 Unspecified asthma, uncomplicated; Z87.440 Personal history of urinary (tract) infections; Z87.891 Personal history of nicotine dependence; R60.0 Localized edema; G24.01 Drug induced subacute dyskinesia; F32.9 Major depressive disorder, single episode, unspecified; K59.00 Constipation, unspecified; G89.29 Other chronic pain; I12.9 Hypertensive chronic kidney disease with stage 1 through stage 4 chronic kidney disease, or unspecified chronic kidney disease; N18.3 Chronic kidney disease, stage 3 (moderate); Z79.899 Other long term (current) drug therapy; F41.9 Anxiety disorder, unspecified; Z90.49 Acquired absence of other specified parts of digestive tract
CPT/HCPCS: 36415; 43450; 71045; 74018; 74177; 74181; 80048; 80053; 81001; 82150; 82550; 82553; 83690; 84484; 85025; 85610; 85730; 93005; 99284; G0378; J1170; J1200; J2250; J2550; J3410; J7030; Q9967

== ENCOUNTER → 2018-08-07 | Day surgery (SDC) | payer MEDICARE, BC ==
[~2018-08-07] MED LIST changes: +AMITRIPTYLINE H25 MG PO; +HYDROCORTISONE 2.5% TOP; +LOSARTAN POTASS25 MG PO; +PROPOFOL IV EMULSION 10 MG/ML 50 ML VIAL ONE; +TRIAMCINOLONE A15 G1 TP; +VENTOLIN HFA 108 INH
--- OUTSIDE RECORDS SUMMARY | 2018-08-07 06:19 | XMS REPORT | Continuity of Care Document ---
Author Author Ava gonzalez Organization Interface Address Unknown Phone Unavailable Problems Problem Status Onset Date Classification Date Reported Comments Source INJECTAFER Active 01/15/2018 [facility] R06.02 Active 12/27/2017 [facility] R07.89 - OTHER CHEST PAIN R06.00 - DYSPN Active 12/09/2017 [facility] Hernia repair Active Problem 01/05/2018 [facility] [place] Hernia repair Active Problem 02/06/2018 [facility] [place] [place] SHORTNESS OF BREATH Active [facility] Medications Medication Details Route Status Patient Instructions Ordering Provider Order Date Source Allergies, Adverse Reactions, Alerts Substance Category Reaction Severity Reaction type Status Date Reported Comments Source codiene Assertion Drug allergy Active [facility] [place] haldol Assertion Drug allergy Active [facility] [place] morphine Assertion hallucinations Low Propensity to adverse reactions to drug Active [facility] [place] Toradol Assertion Drug allergy Active [facility] [place] Levaquin Assertion Drug allergy Active [facility] [place] Immunizations Immunization Date Given Site Status Last Updated Comments Source Results Order Name Results Value Reference Range Date Interpretation Comments Source Hip wo contrast MRI Hip wo contrast MRI EXAMINATION: MRI of the right hip without contrast HISTORY: M25.551 Pain in right hip - M25.551 Pain in right hip; COMPARISON: Right hip radiographs 02/13/2018 TECHNIQUE: Multiplanar, multisequence magnetic resonance imaging of the pelvis and right hip was performed with a local coil without contrast. FINDINGS: Labrum: There is moderate enlargement of the labrum in the anterosuperior and superior quadrants consistent with myxoid degeneration. Cartilage and Bone: Grade 2/3 chondromalacia in the anterosuperior quadrant with subchondral cyst formation in the anterosuperior acetabulum. Mild osteophyte formation the superior acetabulum. Minimal ringlike osteophyte formation in the femoral head neck junction. Ligaments: The ligamentum teres is intact. The hip capsular ligaments are intact. Bone: There is no fracture. There is no evidence of avascular necrosis of either hip. The symphysis pubis and sacroiliac joints are normal. Muscles and Tendons: The common hamstring origin attachments are normal bilaterally. There is moderate tendinosis of the gluteus medius tendon with mild undersurface fraying. The hip muscles are normal. Soft Tissues: No bursal fluid collection is seen. The left sciatic nerve is normal. Contralateral left Hip: Limited large [id number] images of the contralateral hip are unremarkable. Other: Visualized portions of the pelvis and lower abdomen are unremarkable. Visualized portions of the lower lumbar spine are unremarkable. IMPRESSION: 1. Mild osteoarthritis of the right hip. 2. 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 3. Moderate tendinosis of the right gluteus medius tendon with mild undersurface fraying. 02/27/2018 - - Read by: Harpreet Malin MD Dictated Date/time: 02/27/18 15:27 Electronically Signed by: Harpreet Malin MD 02/27/18 15:43 FINAL REPORT [facility] [place] Hip bilat w pelvis and both lat hips DX Hip bilat w pelvis and both lat hips DX EXAM: XR BILATERAL HIP 2 VIEWS DATE: 02/13/2018 at 0942 hours INDICATION: osteoporosis - acute pain of right hip COMPARISON: None TECHNIQUE: AP and frog-leg lateral views of each hip, including the pelvis FINDINGS: There is bilateral chondrocalcinosis of the hip joints. Small foci of ossification of the gluteal soft tissues seen. There is decreased bone mineralization. The joint spaces are well-preserved. No acute fracture or malalignment is identified. A previous herniorrhaphy is seen. IMPRESSION: 1. No acute fracture or malalignment seen. MRI of the hip may be considered if there is a persistent clinical concern. 2. Chondrocalcinosis of hip joints. 3. Osteopenia. 02/13/2018 - - This report was dictated by a Bench Chemist/Fellow. I have personally reviewed the images as well as the Resident's interpretation and agree with the findings. Read by: Malissa Tubbs MD Resident: Malissa Tubbs MD Dictated Date/time: 02/13/18 09:57 Electronically Signed by: Jayme Hermosillo MD 02/13/18 22:41 FINAL REPORT [facility] Bone Density DXA [employer] MA Bone Density DXA [employer] MA BONE DENSITY ASSESSMENT: 02/03/2018 CLINICAL DATA: Post menopausal. Age-Related Osteoporosis Without Current Pathological Fracture/M81.0 RISK FACTORS: race. FINDINGS: Bone density evaluation was performed 02/03/2018 on the right femur neck using a Hologic unit. The BMD average for the exam is 0.615 g/cm2. The T-score is -2.10 and the Z-score is -0.30. This matches the World Health Organization's criteria for osteopenia and places the patient at a medium risk for fracture. An additional bone density evaluation was performed 02/03/2018 on the left femur neck using a Hologic unit. The BMD average for the exam is 0.570 g/cm2. The T- score is -2.50 and the Z-score is -0.70. This matches the World Health Organization's criteria for osteoporosis and places the patient at a high risk for fracture. An additional bone density evaluation was performed 02/03/2018 on the right hip using a Hologic unit. The BMD average for the exam is 0.663 g/cm2. The T-score is -2.30 and the Z-score is -0.70. This matches the World Health Organization's criteria for osteopenia and places the patient at a medium risk for fracture. An additional bone density evaluation was performed 02/03/2018 on the left hip using a Hologic unit. The BMD average for the exam is 0.615 g/cm2. The T-score is -2.70 and the Z-score is -1.10. This matches the World Health Organization's criteria for osteoporosis and places the patient at a high risk for fracture. An additional bone density evaluation was performed 02/03/2018 on the AP L2-L4 region of spine using a Hologic unit. The BMD average for the exam is 1.078 g/cm2. The Z-score is 2.20. This matches the World Health Organization's criteria for normal bone density and places the patient within normal limits of fracture risk. IMPRESSION: OSTEOPOROSIS Patient is at high risk for fracture. This exam was interpreted at [id number] for JOHNATHON Gary 15. Clemente Cristina M.D., cm/susie:02/03/2018 13:23:38 Curator(s): Kiana OVERTON(R)(M), [facility] 02/03/2018 - - Read by: Nba Pedraza MD Dictated Date/time: 02/03/18 13:23 Electronically Signed by: Nba Pedraza MD 02/03/18 13:23 FINAL REPORT IS[facility] Zhang Chest 1view DX Chest 1view DX Patient Name: MANUELA STRICKLAND : 1945; Age: 72 years y/o Female MR: [id number] * CHEST, portable, 1 view HISTORY: - R06.02 Shortness of breath, COMPARISON: 08/14/2011. A chest computed tomography scan without contrast of 12/17/2017 was reviewed. TECHNIQUE: A portable frontal radiograph of the chest was obtained. FINDINGS: Tiny pulmonary nodules described on the chest computed tomography scan of 12/17/2017 are not apparent by chest radiography. There is mild chronic elevation the right hemidiaphragm. There is no evidence of an active or acute process within the chest. The lungs are clear. There are no pulmonary infiltrates or pleural effusions. The heart is normal in size. There are postoperative change involving the cervical spine. The regional skeleton is otherwise unremarkable. There are postoperative changes in the left upper quadrant. In review of the recent computed tomography scan, appears the patient is status post gastrectomy. There are also postoperative change involving the anterior abdominal wall consistent with prior hernia repair. IMPRESSION: 1. No active disease. 2. Postoperative changes, cervical spine. 3. Postoperative change involving the left upper quadrant which appears to be related to prior gastrectomy. There are also postoperative change involving the anterior abdominal wall consistent with prior hernia repair. Please correlate with surgical history. SL: [id number] 01/02/2018 - - Read by: Osorio Krishna MD Dictated Date/time: 01/02/18 12:00 Electronically Signed by: Osorio Krishna MD 01/02/18 12:03 FINAL REPORT [facility] Lung ventilation/perfusion scan RI Lung ventilation/perfusion scan NM Patient Name: MANUELA STRICKLAND : 1945; Age: 72 years y/o Female MR: [id number] Study: Lung ventilation/perfusion scan NM 01/02/2018 10:38 AM CDT Clinical Indication: - Shortness of breath. COMPARISON: Chest x-ray January 02, 2018 TECHNIQUE: Ventilation/perfusion lung scan is performed using 8.9 mCi of Xe-133 which was inhaled and 7 mCi of Tc 99 MAA, which was administered intravenously. INJECTION SITE: Left antecubital The ventilation images were obtained in the posterior plane after Xe inhalation with initial, equilibrium and washout imaging. The perfusion images were obtained immediately after MAA administration sequentially in the anterior, posterior, CHULA, SANCHES, LT lateral, RT lateral, LPO and RPO projections. FINDINGS: Comparison chest radiograph is unremarkable. The Xe-133 ventilation rebreathing images with multiple breath washout show distribution of the radiotracer to both lungs. The washout images show normal washout of the radiotracer. The pulmonary perfusion images with Tc-99m MAA particles show no significant perfusion defects. If there is further concern, CT pulmonary embolism protocol would be helpful for complete assessment. IMPRESSION: 1. Low likelihood ratio for pulmonary embolism. Normal: < 5% probability of pulmonary embolism. Low likelihood ratio: < 20 % probability of pulmonary embolism. Intermediate likelihood ratio: 20-80% probability of pulmonary embolism. High likelihood ratio: > 80% probability of pulmonary embolism. SL: [id number] 01/02/2018 - - Read by: Mychal Painting MD Dictated Date/time: 01/02/18 11:31 Electronically Signed by: Mychal Painting MD 01/02/18 11:39 FINAL REPORT [facility] wo contrast CT Chest wo contrast CT EXAM: CT CHEST WITHOUT CONTRAST DATE: 12/17/2017 10:12 AM CDT INDICATION: - R06.00 Dyspnea, unspecified TECHNIQUE: Volumetric CT acquisition of the chest without contrast. Axial, sagittal and coronal reconstructions. Axial MIP images included. IV contrast: None. DLP: 442 mGy-cm COMPARISON: Two-view chest x-ray August 14, 2011 DISCUSSION: Lower Neck: The visible portions or the lower neck and thyroid are unremarkable. Heart, Mediastinum, and Great Vessels: No cardiomegaly or pericardial effusion. Scattered calcified plaques are present in the thoracic aorta. Lymph Nodes: No mediastinal, axillary or internal mammary lymphadenopathy. Calcified lymph nodes are present in the left hilum. Further evaluation of the hilar lymph nodes is limited by the absence of IV contrast. Lungs and airways no pleural effusion or pneumothorax. There is subsegmental atelectasis in the bilateral lung bases. The airways are unremarkable. There is a 2 mm nodule in the right upper lobe on series 2 image 80. There is a 2 mm nodule in the right middle lobe on series 2, image 164. There is a 2 mm nodule in the right lower lobe on series 2 image 108 and a 3 mm nodule in the right lower lobe on series 2 image 112. There is a 2 mm nodule in the left lower lobe on series 2 image 151. There is a 1 mm nodule in the left lower lobe on series 2 image 193. Esophagus and Upper abdomen: There are postsurgical changes of what appear to be a gastrectomy. Numerous surgical clips are also present in the left upper abdomen. There is been prior ventral hernia repair through laparoscopic approach and multiple surgical tacks are present. Bones and Soft Tissues: Thoracic spine is kyphotic and there are degenerative changes in both the thoracic and lumbar spine. There is been prior fusion involving the cervical spine via an anterior approach. No aggressive bony lesions. IMPRESSION: 1. Multiple pulmonary nodules as described above. If the patient is at high risk for malignancy, such as a smoker, then a one year follow-up CT scan is recommended. Otherwise these nodules do not require further evaluation. 2. Subsegmental atelectasis in the bilateral lung bases. 12/17/2017 - - Read by: Lowell Pizano MD Dictated Date/time: 12/17/17 11:22 Electronically Signed by: Lowell Pizano MD 12/17/17 11:37 FINAL REPORT [facility] Vital Signs Vital Sign Value Date Comments Source Encounters Location Location Details Encounter Type Encounter Number Reason For Visit Attending Provider ADM Date DC Date Status Source [facility] [place] [facility] [id number] Isak Rodriguez 09/03/2014 09/04/2014 ISHA Zhang [facility] Out[facility] - [place] [facility] [id number] Isak Rodriguez 12/12/2017 [facility] [place] [facility] [id number] Isak Rodriguez 12/17/2017 12/18/2017 [facility] [id number] Brayan Pompa 01/02/2018 01/03/2018 [facility] [place] [facility] [id number] Rodriguez 02/03/2018 02/04/2018 ISHA Zhang Procedures Procedure Code Date Perfomer Comments Source
[2018-08-07 09:45] VITALS: BP 136/73
--- NOTE | 2018-08-07 12:48 | Operative Report ---
DATE OF PROCEDURE: August 07, 2018 REFERRING PHYSICIAN: Dr. Isak Todd. PROCEDURE PERFORMED: Esophagogastroduodenoscopy with biopsy and esophageal dilatation. INDICATIONS FOR ESOPHAGOGASTRODUODENOSCOPY: Dysphagia, nausea. MEDICATION: Patient was done under MAC. Please see anesthesiologist's note. PROCEDURE: With patient in the left lateral decubitus position, a flexible fiberoptic Olympus gastroscope was introduced into the esophagus under direct visualization without any difficulty. A minute nodule was noted in the cervical esophagus just below the upper esophageal sphincter and that was biopsied. The esophagus was then dilated to size 54-Indian Rahman. The scope was then advanced with ease into the stomach and patient is status post Constantine-en-Y. Anastomosis was intact. The scope was subsequently withdrawn. Patient tolerated the procedure well. IMPRESSIONS 1. Minute nodule, cervical esophagus, biopsied. 2. Esophagus dilated to size 54-Indian Rahman. 3. Status post Constantine-en-Y, anastomosis intact. PLAN: Follow up histology. Continue current therapy. Job#: [id number] TA cc:ISAK TODD MD,
== END | disposition home or self-care (01) ==
LOC: OR 06:15
PROVIDERS: ATTEND Internal Medicine Gastroenterology
DX: R13.19 Other dysphagia (principal); K22.8 Other specified diseases of esophagus; K21.9 Gastro-esophageal reflux disease without esophagitis; Z98.84 Bariatric surgery status; I10 Essential (primary) hypertension; M19.90 Unspecified osteoarthritis, unspecified site; J45.909 Unspecified asthma, uncomplicated; M06.9 Rheumatoid arthritis, unspecified; F41.9 Anxiety disorder, unspecified; F32.9 Major depressive disorder, single episode, unspecified; Z88.6 Allergy status to analgesic agent; Z88.8 Allergy status to other drugs, medicaments and biological substances; Z91.018 Allergy to other foods; Z91.048 Other nonmedicinal substance allergy status; Z01.810 Encounter for preprocedural cardiovascular examination; Z87.440 Personal history of urinary (tract) infections; Z86.19 Personal history of other infectious and parasitic diseases; Z80.0 Family history of malignant neoplasm of digestive organs
CPT/HCPCS: 43239; 43450; 88305; 93005; J2704

== ENCOUNTER → 2018-10-13 | Outpatient (CLI) | payer MEDICARE, BC ==
[~2018-10-13] MED LIST changes: -PROPOFOL IV EMULSION 10 MG/ML 50 ML VIAL ONE
--- NOTE | 2018-10-13 18:41 | Diagnostic Imaging Report ---
EXAMINATION: SPINE CERVICAL AP LAT FLEX EXT INDICATION: Cervical disc herniation. COMPARISON: CT cervical spine 04/05/2017. FINDINGS: C1 through the mid aspect of C6 is visualized. The lower aspect of C6 and C7 are obscured by the overlying shoulders. There has been anterior cervical fusion with plate and screw construct extending from the C4-C5 vertebral bodies. There is an associated intervertebral spacer. There is a partially seen anterior plate and screw construct spanning C6-C7. The hardware appears intact. There is osseous fusion involving the C5-C7 vertebral bodies. There is no evidence of acute fracture. There is minimal anterolisthesis of C3 on C4 and minimal retrolisthesis of C4 on C5. No change in alignment on flexion and extension views. The prevertebral soft tissues are unremarkable. Mild multilevel degenerative disc and facet degenerative changes. IMPRESSION: Limited evaluation due to the lower aspect of C6 and C7 obscured by overlying shoulders. If clinically indicated, cervical spine CT may be considered for further evaluation. Postsurgical changes status post cervical fusion as above. No change in alignment on flexion and extension views. Signed by: Dr. Amparo Ang MD on 10/13/2018 6:37 PM
== END ==
LOC: RAD 12:41
PROVIDERS: ATTEND Neurological Surgery
DX: M50.20 Other cervical disc displacement, unspecified cervical region (principal); Z98.1 Arthrodesis status
CPT/HCPCS: 72050

== ENCOUNTER → 2019-02-05 | Outpatient (CLI) | payer MEDICARE, BC ==
[~2019-02-05] MED LIST changes: +IOPAMIDOL 370 MG/ML 200 ML INFUS..BTL INJ ONE; +SODIUM CHLORIDE 0.9% 50ML 50 ML ONE
[2019-02-05 13:37] LABS: BLOOD UREA NITROGEN 12 mg/dL (7-26); BUN/CREATININE RATIO 14 (6-25); CREATININE, SERUM 0.86 mg/dL (0.57-1.11); EST GLOMERULAR FILTRATION RATE > 60 ML/MIN (60-)
--- NOTE | 2019-02-05 14:41 | Diagnostic Imaging Report ---
EXAM: CT Abdomen and Pelvis WITH intravenous contrast INDICATION: Abdominal wall infection COMPARISON: CT abdomen pelvis of 03/13/2018 TECHNIQUE: Abdomen and pelvis were scanned utilizing a multidetector helical scanner from the lung base to the pubic symphysis after administration of IV contrast. Coronal and sagittal reformations were obtained. Routine protocol was performed. Scan was performed when during portal venous phase. IV CONTRAST: 100mL of Isovue 370 ORAL CONTRAST: Water COMPLICATIONS: None RADIATION DOSE: Total DLP: 411.8 mGy*cm Dose modulation, iterative reconstruction, and/or weight based adjustment of the mA/kV was utilized to reduce the radiation dose to as low as reasonably achievable. FINDINGS: LOWER THORAX: No consolidation at the lung bases. The heart is not enlarged. No pericardial effusion. HEPATOBILIARY: Diffuse hepatic parenchymal hypoattenuation consistent with hepatic steatosis. No focal liver lesion. Unchanged biliary ductal dilatation compared to 03/13/2018. Apparent postoperative changes of Whipple procedure with cholecystectomy and hepaticojejunostomy. SPLEEN: No splenomegaly. 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 The pancreas is generally atrophic. Pancreatic head is absent. ADRENALS: No adrenal nodules. KIDNEYS/URETERS: No hydronephrosis, renal calculi, or solid mass lesion. The left kidney appears somewhat atrophic, unchanged from multiple prior CTs. PELVIC ORGANS/BLADDER: Status post hysterectomy. Phleboliths in the pelvis. PERITONEUM / RETROPERITONEUM: No free air or fluid. LYMPH NODES: No lymphadenopathy. VESSELS: Scattered atherosclerotic calcifications of the nonaneurysmal abdominal aorta and major branches. GI TRACT: Postoperative changes of gastrectomy and multiple intra-abdominal anastomoses as before. No abnormal bowel wall thickening. No bowel obstruction. BONES AND SOFT TISSUES: No acute osseous injury. Again seen are post surgical changes of the anterior abdominal wall with anterior abdominal mesh repair. No evidence of subcutaneous fluid collection to suggest drainable abscess. Mild anterior abdominal wall skin thickening. Mild diffuse muscular atrophy. IMPRESSION: Unchanged biliary ductal dilatation, which could be expected in the postoperative state. Anterior abdominal mesh repair with no evidence of subcutaneous abscess. Extensive postoperative abdominal findings with no evidence of bowel obstruction. Signed by: Eric Coughlin MD on 02/05/2019 2:37 PM
== END ==
LOC: CT 12:35
PROVIDERS: ATTEND Surgery
DX: B99.8 Other infectious disease (principal)
CPT/HCPCS: 36415; 74177; 82565; 84520; Q9967

== ENCOUNTER → 2019-05-14 | Outpatient (CLI) | payer MEDICARE, BC ==
[~2019-05-14] MED LIST changes: -IOPAMIDOL 370 MG/ML 200 ML INFUS..BTL INJ ONE; -SODIUM CHLORIDE 0.9% 50ML 50 ML ONE
--- NOTE | 2019-05-14 10:43 | Diagnostic Imaging Report ---
Abdominal ultrasound. History: Left upper quadrant pain. Comparison: CT 02/05/2019. Discussion: Transverse and longitudinal images of the abdomen were obtained demonstrating a liver of normal size and echogenicity measuring 13.5 cm in length. The portal vein is patent with hepatopetal flow and is within normal limits measuring 8 mm in diameter. The biliary tree is within normal limits with the common bile duct measuring 8 mm in diameter. The gallbladder is absent. The kidneys are small but normal in echogenicity bilaterally without evidence of hydronephrosis, stones, or mass. The right kidney measures 8.0 cm and the left kidney measures 7.7 cm in length. The spleen is normal in size and appearance measuring 11.2 cm in length. The pancreas, aorta, and IVC were obscured by overlying bowel gas. There is no evidence of free fluid. IMPRESSION: 1. Status post cholecystectomy. 2. Small kidneys bilaterally. 3. Pancreas, aorta, and IVC are not visible. Otherwise unremarkable exam. Signed by: Jacob Winslow on 05/14/2019 10:40 AM
== END ==
LOC: US 09:22
PROVIDERS: ATTEND Internal Medicine Gastroenterology
DX: R10.12 Left upper quadrant pain (principal)
CPT/HCPCS: 76700

== ENCOUNTER → 2019-09-08 | Outpatient (CLI) | payer MEDICARE, BC ==
[~2019-09-08] MED LIST changes: +BENADRYL25 M1 PO; +CLONIDINE HCL0.1 MG PO; +CLONIDINE PO; +LEVOTHYROXINE50 MCG PO; +MULTI-VITAMIN1 EACH PO; +NITROGLYCERIN0.4 MG SL; +POTASSIUM CHLO10 ME1 PO; +VENTOLIN HFA18 GM INH; +[UNRECOGNIZED DRUG - OTHER]
[2019-09-08 10:29] LABS: BASOPHILS % 0.4 % (0.0-1.0); EOSINOPHILS # (AUTO) 0.1 (0.0-0.4); EOSINOPHILS % 1.3 % (0.0-6.0); HEMATOCRIT 39.3 % (34.2-44.1); HEMOGLOBIN 12.4 g/dL (12.0-16.0); LYMPHOCYTES # (AUTO) 1.4 (1.0-3.2); LYMPHOCYTES % 26.4 % (18.0-39.1); MEAN CORPUSCULAR HEMOGLOBIN 29.8 pg (28-32); MEAN CORPUSCULAR HGB CONC 31.6 g/dL (31-35); MEAN CORPUSCULAR VOLUME 94.5 fL (81-99); MONOCYTES # (AUTO) 0.5 (0.2-0.8); MONOCYTES % 9.8 % (4.4-11.3); NEUTROPHILS # (AUTO) 3.2 (2.1-6.9); NEUTROPHILS % 61.9 % (38.7-80.0); PLATELET COUNT 165 x10e3/uL (140-360); RED BLOOD COUNT 4.16 x10e6/uL (3.6-5.1); RED CELL DISTRIBUTION WIDTH 13.1 % (11.7-14.4)
--- OUTSIDE RECORDS SUMMARY | 2019-09-09 08:43 | XMS REPORT | Summary of Care ---
Author Author Drake BELTRE Radha Diaz Unknown Address Unknown Phone Unavailable Care Team Providers Care Mma Fighter Name Role Phone MOLINA RICO N.P. Unavailable Unavailable PEYTON Sanders, CHINA TODD MD [place], [place] Peña Unavailable Unavailable JERRY HAYDEN, JOSSIE Motta Unavailable Unavailable Unavailable Unavailable Functional Status Name Dates Details Functional status health issues are not documented Status: Name Dates Details Cognitive status health issues are not documented Status: Problems Name Dates Details Neck pain (723.1, M54.2) Status: Active Fatigue (780.79, R53.83) Status: Active Wrist pain (719.43, M25.539) Status: Active Decreased renal function (593.9, N28.9) Status: Active Frequent urination (788.41, R35.0) Status: Active Abdominal pain (789.00, R10.9) Status: Active Urinary tract infection (599.0, N39.0) Status: Active Reaction, drug, adverse (E947.9, T50.905A) Status: Active Ganglion of left wrist (727.41, M67.432) Status: Active Diarrhea, functional (564.5, K59.1) Status: Active Nausea with vomiting, unspecified (787.01, R11.2) Status: Active Chronic pain (338.29, G89.29) Status: Active Leg pain (729.5, M79.606) Status: Active Dyspnea (786.09, R06.00) Status: Active Recurrent UTI (599.0, N39.0) Status: Active Acute pain of right hip (719.45, M25.551) Status: Active Chondrocalcinosis (275.49, M11.20) Status: Active Hypophosphatemia (275.3, E83.39) Status: Active Skin rash (782.1, R21) Status: Active Iron deficiency anemia (280.9, D50.9) Status: Active Chest pain, atypical (786.59, R07.89) Status: Active Other form of dyspnea (786.09, R06.09) Status: Active Hypoxemia (799.02, R09.02) Status: Active Acute medication-induced akathisia (333.99, G25.71) Status: Active Restlessness and agitation (799.29, R45.1) Status: Active Allergy to sulfa drugs (V14.2, Z88.2) Status: Active Urinary retention with incomplete bladder emptying (788.21, R33.9) Status: Active Medicare annual wellness visit, subsequent (V70.0, Z00.00) Status: Active Adverse drug effect (E947.9, T50.905A) Status: Active Anemia (285.9, D64.9) Status: Active Anxiety (300.00, F41.9) Status: Active Arthritis of carpometacarpal (CMC) joint of left thumb (716.94, M18.12) Status: Active Asthma, mild intermittent (493.90, J45.20) Status: Active Gastroesophageal reflux disease (530.81, K21.9) Status: Active Headache (784.0, R51) Status: Active Insomnia (780.52, G47.00) Status: Active Interstitial cystitis (595.1, N30.10) Status: Active Vitamin B12 deficiency (266.2, E53.8) Status: Active Advance directive on file (V49.89, Z78.9) Status: Active Edema (782.3, R60.9) Status: Active Hypokalemia (276.8, E87.6) Status: Active Hypoproteinemia (273.8, E77.8) Status: Active Osteoporosis (733.00, M81.0) Status: Active Hypothyroidism, unspecified type (244.9, E03.9) Status: Active Mammogram declined (V64.2, Z53.20) Status: Active Pruritus (698.9, L29.9) Status: Active Breast cancer screening (V76.10, Z12.39) Status: Active Neuropathy, peripheral (356.9, G62.9) Status: Active Essential (primary) hypertension (401.9, I10) Status: Active Depressive disorder (311, F32.9) Status: Active Hypothyroidism (244.9, E03.9) Status: Active Sialorrhea (527.7, K11.7) Status: Active Medications Name Dates Details Ondansetron 4 MG Oral Tablet Disintegrating DISSOLVE ONE TABLET BY MOUTH DAILY NEEDED FOR NAUSEA Quantity: 90 MLOINA RICO N.P. * Start : 16-Apr-2013 Active Cyanocobalamin 1000 MCG/ML Injection Solution INJECT 1ML IN MUSCLE ONCE A MONTH * Quantity: 12 Refills: 0 MOLINA RICO N.P. * Start : 19-Jun-2018 Active Promethegan 25 MG Rectal Suppository UNWRAP AND INSERT 1 SUPPOSITORY RECTALLY EVERY 12 HOURS NEEDED * Quantity: 24 Refills: 0 CHINA TODD M.D. * Start : 02-Nov-2016 Active Protonix 40 MG Oral Packet TAKE 1 TABLET TWICE DAILY * Refills: 0 Active Calcium + D TABS TAKE 1 TABLET TWICE DAILY * Refills: 0 Active Syringe 25G X 1" 3 ML USE DIRECTED. * Quantity: 12 Refills: 0 MOLINA RICO N.P. * Start : 27-May-2013 Active ALPRAZolam 0.25 MG Oral Tablet TAKE ONE TABLET BY MOUTH DAILY * Quantity: 15 Refills: 0 CHINA TODD M.D. * Start : 24-Feb-2014 Active Temazepam 15 MG Oral Capsule TAKE ONE CAPSULE BY MOUTH EVERY NIGHT AT BEDTIME * Quantity: 15 Refills: 0 CHINA TODD M.D. * Start : 24-Feb-2014 Active Juice Plus Fibre LIQD ORCHARD BLEND, MARLENY BLEND, AND GARDEN BLEND DAILY * Refills: 0 Active FLUoxetine HCl - 20 MG Oral Capsule TAKE ONE CAPSULE BY MOUTH DAILY * Quantity: 30 Refills: 4 CHINA TODD M.D. * Start : 24-Nov-2018 Active Probiotic CAPS TAKE 1 CAPSULE DAILY * Refills: 0 Active Cristina Contour Next Test STRP USE DIRECTED * Quantity: 50 Refills: 2 CHINA TODD M.D. * Start : 22-Nov-2015 Active Hqvqczbfqo-VKXO-Xtpnqxby 50-325-40 MG Oral Capsule TAKE 1 CAPSULE BY MOUTH EVERY DAY NEEDED * Quantity: 90 Refills: 0 CHINA TODD M.D. * Start : 10-Sep-2016 Active cloNIDine HCl - 0.1 MG Oral Tablet TAKE 1 TABLET BY MOUTH AT BEDTIME * Quantity: 30 Refills: 4 CHINA TODD M.D. * Start : 23-Jan-2017 Active Losartan Potassium 25 MG Oral Tablet TAKE 1 TABLET BY MOUTH EVERY DAY * Quantity: 30 Refills: 5 CHINA TODD M.D. * Start : 23-Jan-2017 Active Ventolin HFA 108 (90 Base) MCG/ACT Inhalation Aerosol Solution INHALE ONE TO TWO PUFFS EVERY 4 TO 6 HOURS NEEDED * Quantity: 18 Refills: 0 MOLINA RICO N.P. * Start : 10-Oct-2018 Active Furosemide 20 MG Oral Tablet TAKE 1 TABLET BY MOUTH DAILY * Quantity: 30 Refills: 2 CHINA TODD M.D. * Start : 21-Nov-2017 Active Triamcinolone Acetonide 0.1 % External Cream TWICE DAILY- PRESCRIBED BY DERM * Refills: 0 Active Hydrocortisone 2.5 % External Cream APPLY SPARINGLY TO AFFECTED AREA(S) TWICE DAILY * Quantity: 1 Refills: 0 Active 30 GM Tube Famotidine TABS TAKE 1 TABLET TWICE DAILY. * Refills: 0 Active Losartan Potassium 25 MG Oral Tablet TAKE 1 TABLET DAILY. * Refills: 0 Active Dicyclomine HCl - 10 MG Oral Capsule TAKE 1 CAPSULE EVERY 6 HOURS- DR. ARREGUIN * Refills: 0 Active Potassium TABS TAKE 1 TABLET DAILY. * Refills: 0 Active Levothyroxine Sodium 25 MCG Oral Tablet TAKE 1 TABLET BY MOUTH DAILY * Quantity: 30 Refills: 4 CHINA TODD M.D. * Start : 15-Dec-2018 Active Gabapentin 300 MG Oral Capsule TAKE 1 CAPSULE TWICE DAILY. * Quantity: 60 Refills: 3 CHINA TODD M.D. * Start : 09-Feb-2019 Active Allergies and Adverse Reactions Name Dates Details Amitriptyline HCl TABS (Allergy) Reaction: Rash Status: Active Bactrim TABS (Allergy) Status: Active Cipro TABS (Allergy) Status: Active Codeine Derivatives (Allergy) Status: Active Compazine TABS (Allergy) Status: Active Dilaudid-HP SOLN (Allergy) Status: Active Flagyl CAPS (Allergy) Status: Active Formaldehyde SOLN (Allergy) Status: Active Gabapentin TABS (Allergy) Reaction: Visual Disturbance Status: Active garlic (Allergy) Status: Active Haldol SOLN (Allergy) Status: Active Levaquin TABS (Allergy) Status: Active Morphine Derivatives (Adverse Event) Reaction: Insomnia Status: Active Reglan (Allergy) Status: Active Sulfites (Allergy) Status: Active Toradol SOLN (Allergy) Status: Denied traMADol HCl TABS (Adverse Event) Reaction: Itching Status: Active Strawberries (Allergy) Status: Active Tape (Allergy) Status: Active Past Medical History Name Dates Details History of Acute foot pain, left (729.5, M79.672) Status: Resolved History of Anginal equivalent (413.9, I20.8) Status: Resolved History of backache (V13.59, Z87.39) Status: Resolved History of burning on urination Status: Resolved History of candidiasis (V12.09, Z86.19) Status: Resolved History of chest pain (V13.89, Z87.898) Status: Resolved History of Contusion of foot, left (924.20, S90.32XA) Status: Resolved History of Costochondritis (733.6, M94.0) Status: Resolved History of heartburn (V12.79, Z87.898) Status: Resolved History of hemoptysis (V12.69, Z87.09) Status: Resolved History of hyperglycemia (V12.29, Z86.39) Status: Resolved History of hypoglycemia (V12.29, Z86.39) Status: Resolved History of influenza vaccination (V49.89, Z92.29) Status: Resolved History of Migraine (346.90, G43.909) Status: Resolved History of Neck pain (723.1, M54.2) Status: Resolved History of Nutritional counseling (V65.3, Z71.3) Status: Resolved History of Pyuria (791.9, R82.81) Status: Resolved History of Superficial bruising of foot (924.20, S90.30XA) Status: Resolved History of Tendon tear, foot (845.10, S96.919A) Status: Resolved History of Upper respiratory infection, acute (465.9, J06.9) Status: Resolved History of Wrist pain, acute, left (719.43, M25.532) Status: Resolved Personal history of urinary tract infection (V13.02, Z87.440) Status: Resolved Procedures Procedure Dates Details History of Gastric Surgery Completed 1-Dec-2002 History of Hip Surgery Completed History of Hysterectomy Completed History of Lower Back Surgery Completed History of Colon Surgery Completed 08-Aug-2002 History of Neck Surgery Completed Comments: Completed: 2001 History of Corneal LASIK Bilateral Completed History of Gastric Surgery Completed 07-Jun-2006 Immunization Name Dates Details Pneumo on: 30-Apr-2007 H1N1 Influenza Inj on: 14-Jun-2009 Influenza on: 03-Apr-2011 Influenza on: Mar-2014 Influenza on: Mar-2015 Prevnar 13 Intramuscular Suspension on: 08-Mar-2015 Fluzone High-Dose 0.5 ML Intramuscular Suspension Prefilled Syringe Lot #: [id number] on: 11-May-2016 Fluzone High-Dose 0.5 ML Intramuscular Suspension Prefilled Syringe Lot #: [id number] on: 01-Apr-2017 Influenza, seasonal, injectable on: 10-Apr-2018 Family History Name Dates Details Family history of Colon Cancer (V16.0) Status: Active Name Dates Details Family history of Diabetes Mellitus (V18.0) Status: Active Name Dates Details Family history of Diabetes Mellitus (V18.0) Status: Active Family history of Acute Myocardial Infarction (V17.3) Status: Active Family history of Transient Ischemic Attack Status: Active Social History Name Dates Details Unknown if ever smoked Vital Signs Date Test Result Details No Known Vitals to report Results Date Description Value Details Results not documented Plan of Care Name Dates Details Planned Observations Planned Goals not documented Interventions Provided Medication Changes* ALPRAZolam 0.25 MG Oral Tablet - Renew * Temazepam 15 MG Oral Capsule - Renew Instructions Name Dates Details Instructions not documented Encounters Appointment; CHINA TODD M.D. Encounter Diagnosis: Problem not documented On: 31-Jul-2017 15:30 Appointment; CHINA TODD M.D. Encounter Diagnosis: Problem not documented On: 21-Nov-2017 14:45 Appointment; YUN RIVERA M.D. Encounter Diagnosis: Problem not documented On: 25-Nov-2017 10:20 Appointment; MAGDALENA NUCLEAR Encounter Diagnosis: Problem not documented On: 27-Nov-2017 8:30 Appointment; MAGDALENA, ECHO Encounter Diagnosis: Problem not documented On: 28-Nov-2017 14:00 Appointment; MAGDALENA, ECHO Encounter Diagnosis: Problem not documented On: 28-Nov-2017 15:00 Appointment; YUN RIVERA M.D. Encounter Diagnosis: Problem not documented On: 04-Dec-2017 10:00 Appointment; CHINA TODD M.D. Encounter Diagnosis: Problem not documented On: 06-Dec-2017 14:15 Appointment; Macho Quintana M.D. Encounter Diagnosis: Problem not documented On: 03-Jan-2018 11:00 Appointment; CHINA TODD M.D. Encounter Diagnosis: Problem not documented On: 06-Jan-2018 14:45 Appointment; Macho Quintana M.D. Encounter Diagnosis: Problem not documented On: 04-Feb-2018 10:15 Appointment; ANTONIO RDORIGUEZ M.D. Encounter Diagnosis: Problem not documented On: 13-Feb-2018 8:00 Appointment; CHINA TODD M.D. Encounter Diagnosis: Problem not documented On: 08-Apr-2018 14:45 Appointment; Macho Quintana M.D. Encounter Diagnosis: Problem not documented On: 11-Apr-2018 11:00 Appointment; CHINA TODD M.D. Encounter Diagnosis: Problem not documented On: 15-Apr-2018 15:00 Appointment; CHINA TODD M.D. Encounter Diagnosis: Problem not documented On: 17-Jul-2018 15:15 Appointment; JAZZY FELIX P.A. Encounter Diagnosis: Problem not documented On: 25-Aug-2018 12:15 Appointment; CHINA TODD M.D. Encounter Diagnosis: Problem not documented On: 02-Oct-2018 15:00 Appointment; CHINA TODD M.D. Encounter Diagnosis: Problem not documented On: 09-Oct-2018 15:30 Appointment; CHINA TODD M.D. Encounter Diagnosis: Problem not documented On: 23-Oct-2018 15:15 Appointment; CHINA TODD M.D. Encounter Diagnosis: Problem not documented On: 04-Nov-2018 14:45 Appointment; CHINA TODD M.D. Encounter Diagnosis: Problem not documented On: 09-Dec-2018 15:30 Appointment; CHINA TODD M.D. Encounter Diagnosis: Problem not documented On: 06-Jan-2019 15:15 Appointment; TODD, CHINA, M.D. Encounter Diagnosis: Problem not documented On: 09-Feb-2019 15:15 Appointment; CHINA TODD M.D. Encounter Diagnosis: Problem not documented On: 10-Apr-2019 11:30
== END | disposition home or self-care (01) ==
LOC: LAB 05:00 → OR 09-09 08:25 → EDSTATUS 09-09 11:00
PROVIDERS: ATTEND Internal Medicine Gastroenterology
DX: R07.89 Other chest pain (principal); R11.2 Nausea with vomiting, unspecified; I10 Essential (primary) hypertension; F41.9 Anxiety disorder, unspecified; Z98.84 Bariatric surgery status; Z82.49 Family history of ischemic heart disease and other diseases of the circulatory system; Z88.1 Allergy status to other antibiotic agents; Z88.8 Allergy status to other drugs, medicaments and biological substances; Z91.018 Allergy to other foods; Z91.048 Other nonmedicinal substance allergy status; R13.10 Dysphagia, unspecified
CPT/HCPCS: 36415; 85025

== ENCOUNTER 2019-09-09 08:42 | Emergency (ER) | payer MEDICARE, BC ==
[~2019-09-09] VITALS: Ht 165.1 cm; Wt 73.5 kg
[~2019-09-09 08:42] MED LIST changes: -BENADRYL25 M1 PO; -CLONIDINE HCL0.1 MG PO; -VENTOLIN HFA18 GM INH
[2019-09-09] MEDS ORDERED: SODIUM CHLORIDE 0.9% 1000ML 1,000 ML IV STA (08:57)
[2019-09-09] MEDS ORDERED: ONDANSETRON HCL INJ 2MG/ML 2ML 2 MG/ML VIAL IV STA (08:57)
[2019-09-09] MEDS ORDERED: PANTOPRAZOLE 40 MG 10ML VIAL IV STA (08:57)
[2019-09-09] MEDS ORDERED: LIDOCAINE VISC 2% SOLN 15 ML UDC PO ONE (09:00)
[2019-09-09] MEDS ORDERED: MAGNESIUM/ALUMINUM/SIMETHICONE 30 ML UDC PO ONE (09:00)
[2019-09-09] MEDS ORDERED: BELLADONNA ALK/PHENOBARBITAL 5 ML UDC PO ONE (09:00)
[2019-09-09 09:16] LABS: BASOPHILS % 0.4 % (0.0-1.0); EOSINOPHILS # (AUTO) 0.1 (0.0-0.4); EOSINOPHILS % 1.4 % (0.0-6.0); HEMATOCRIT 38.5 % (34.2-44.1); HEMOGLOBIN 12.4 g/dL (12.0-16.0); LYMPHOCYTES # (AUTO) 1.9 (1.0-3.2); LYMPHOCYTES % 37.5 % (18.0-39.1); MEAN CORPUSCULAR HEMOGLOBIN 30.1 pg (28-32); MEAN CORPUSCULAR HGB CONC 32.2 g/dL (31-35); MEAN CORPUSCULAR VOLUME 93.4 fL (81-99); MONOCYTES # (AUTO) 0.5 (0.2-0.8); MONOCYTES % 9.2 % (4.4-11.3); NEUTROPHILS # (AUTO) 2.6 (2.1-6.9); NEUTROPHILS % 51.3 % (38.7-80.0); PLATELET COUNT 169 x10e3/uL (140-360); RED BLOOD COUNT 4.12 x10e6/uL (3.6-5.1); RED CELL DISTRIBUTION WIDTH 12.9 % (11.7-14.4)
--- NOTE | 2019-09-09 09:30 | Diagnostic Imaging Report ---
EXAMINATION: CHEST SINGLE (PORTABLE) INDICATION: Chest pain COMPARISON: Chest radiograph 03/09/2018 FINDINGS: LINES/TUBES:None LUNGS:The lungs are well-inflated. No focal consolidation or pulmonary edema. PLEURA:No pleural effusion or pneumothorax. MEDIASTINUM:The cardiomediastinal silhouette appears normal in size and shape. BONES/SOFT TISSUES:No acute osseous injury. Apparent ill-defined lytic lesion of the left proximal humerus. Cervical spine fusion hardware. ABDOMEN:No free air under the diaphragm. IMPRESSION: No focal pneumonia or pulmonary edema. Apparent ill-defined lytic lesion of the left proximal humerus. If the patient has symptoms in this area, recommend further evaluation with dedicated left humerus radiographs. Signed by: Eric Coughlin MD on 09/09/2019 9:27 AM
[2019-09-09 09:32] LABS: INR 0.9; PROTHROMBIN TIME 12.7 seconds (11.9-14.5)
[2019-09-09 09:33] LABS: PARTIAL THROMBOPLASTIN TIME 26.4 seconds (23.8-35.5)
[2019-09-09 09:45] LABS: ALBUMIN/GLOBULIN RATIO 1.5 (0.8-2.0); ANION GAP 13.2 mmol/L (8-16); CALCIUM 9.1 mg/dL (8.4-10.2); CREATININE, SERUM 1.01 mg/dL (0.57-1.11); POTASSIUM 4.2 mmol/L (3.5-5.1)
--- NOTE | 2019-09-09 11:56 | NUR ---
2nd set of cardiac enzyme labs drawn and sent.
--- NOTE | 2019-09-09 14:16 | NUR ---
Multiple specimens collected for repeat cardiac enzymes, lab reported all specimens have been hemolyzed.
[2019-09-09 15:33] LABS: CREATINE KINASE MB 2.4 ng/mL (0-5.0)
--- NOTE | 2019-09-09 15:53 | NUR ---
Repeat cardiac enzymes finally resulted, DC home
[2019-09-18] MEDS ORDERED: CLONIDINE HCL0.1 MG PO (21:39)
[2019-09-18] MEDS ORDERED: BENADRYL25 M1 PO (21:39)
[2019-09-18] MEDS ORDERED: VENTOLIN HFA18 GM INH (21:39)
== END 2019-09-09 16:25 | disposition home or self-care (01) ==
LOC: ER 08:42
DX: R11.2 Nausea with vomiting, unspecified (principal); R07.89 Other chest pain; I10 Essential (primary) hypertension; F41.9 Anxiety disorder, unspecified; M89.9 Disorder of bone, unspecified; Z98.84 Bariatric surgery status
CPT/HCPCS: 36415; 71045; 80053; 82550; 82553; 83690; 83735; 83880; 84484; 85025; 85610; 85730; 93005; 99284; C9113; J2405; J7030

== ENCOUNTER → 2019-09-14 | Day surgery (SDC) | payer MEDICARE, BC ==
[~2019-09-14] MED LIST changes: +BENADRYL25 M1 PO; +CLONIDINE HCL0.1 MG PO; +FENTANYL CITRATE/PF 100MCG/2 ML INJ ONE; +LIDOCAINE HCL 2% LOCAL INJ 5 ML SDV VIAL INJ ONE; +MIDAZOLAM HCL 2 MG/2 ML VIAL ONE; +PROPOFOL IV EMULSION 10 MG/ML 50 ML VIAL ONE; +VENTOLIN HFA18 GM INH; +VERAPAMIL HCL 2.5 MG/ML 2 ML VIAL ONE
[2019-09-14 12:15] VITALS: BP 136/67
--- NOTE | 2019-09-14 13:07 | Operative Report ---
DATE OF PROCEDURE: 09/14/2019 SURGEON: James Guevara MD PROCEDURE: EGD with esophageal dilatation. INDICATIONS FOR EGD: Dysphagia to solids. MEDICATIONS: The patient was done under MAC, please see anesthesiologist's note. PROCEDURE IN DETAIL: With the patient in the left lateral decubitus position, the flexible fiberoptic Olympus gastroscope was introduced into the esophagus under direct visualization without any difficulty. There was some patchy erythema noted in distal esophagus. There was a mild stricture noted at the GE junction that was dilated to size 54-Ghanaian Rahman. The scope was then advanced with ease into the stomach and the patient appears to be status post Constantine-en-Y. Anastomosis was intact. The scope was subsequently withdrawn and the patient tolerated the procedure well. IMPRESSION: 1. Distal esophagitis. 2. Esophageal stricture, GE junction, dilated to size 54-Ghanaian Rahman. 3. Status post Constantine-en-Y. Anastomosis intact. PLAN: Continue Carafate 1 g p.o. before meals t.i.d. and at bedtime and Protonix 40 mg 1 p.o. before meals b.i.d. James Guevara MD [facility] [place]/JAYA /[id number] cc: Jarred Guevara MD
== END | disposition home or self-care (01) ==
LOC: OR 08:47
PROVIDERS: ATTEND Internal Medicine Gastroenterology
DX: K22.2 Esophageal obstruction (principal); Z86.010 Personal history of colon polyps; K20.9 Esophagitis, unspecified; Z98.84 Bariatric surgery status; R42 Dizziness and giddiness; J45.909 Unspecified asthma, uncomplicated; B15.9 Hepatitis A without hepatic coma; E03.9 Hypothyroidism, unspecified; I10 Essential (primary) hypertension; G24.01 Drug induced subacute dyskinesia; F32.9 Major depressive disorder, single episode, unspecified; Z88.6 Allergy status to analgesic agent; Z88.1 Allergy status to other antibiotic agents; Z88.2 Allergy status to sulfonamides; Z88.8 Allergy status to other drugs, medicaments and biological substances; Z87.440 Personal history of urinary (tract) infections; Z86.2 Personal history of diseases of the blood and blood-forming organs and certain disorders involving the immune mechanism; Z80.0 Family history of malignant neoplasm of digestive organs
CPT/HCPCS: 43235; 43450; J2001; J2250; J2704; J3010

== ENCOUNTER → 2020-01-21 | Outpatient (CLI) | payer MEDICARE, BC ==
[~2020-01-21] MED LIST changes: -FENTANYL CITRATE/PF 100MCG/2 ML INJ ONE; -LIDOCAINE HCL 2% LOCAL INJ 5 ML SDV VIAL INJ ONE; -MIDAZOLAM HCL 2 MG/2 ML VIAL ONE; -PROPOFOL IV EMULSION 10 MG/ML 50 ML VIAL ONE; -VERAPAMIL HCL 2.5 MG/ML 2 ML VIAL ONE
--- NOTE | 2020-01-21 14:59 | Diagnostic Imaging Report ---
Exam: Lumbar spine MRI without IV contrast History: Left leg pain and bilateral foot numbness Comparison studies: Included lumbar spine from abdomen pelvis CT of 02/05/2019. Technique: Sagittal and axial T2 , sagittal T1 and IR, axial spin density oblique. Intravenous contrast: None Findings: Number of lumbar vertebral bodies: 5. Alignment: Normal lumbar lordosis with mild lumbar levocurvature. Soft tissues: No T2 hyperintense territory changes. The common bile duct is mildly dilated similar to prior exam and there are partial imaged postsurgical changes in the abdomen which are incompletely evaluated on this exam. Two small T2 hyperintense lesions in the right kidney are compatible with cysts. Dorsal muscles: Moderate symmetric fatty-replaced atrophy. Lower thoracic cord: Normal in signal and morphology. The tip of the conus is at T12-L1. Cauda equina: No masses. No arachnoiditis. Vertebrae: No compression fracture or infection. Bones are demineralized with diffuse fatty-replaced marrow changes. Degenerative changes: L1-L2: Mildly degenerated disc. Small broad-based left central disc protrusion does not result in canal stenosis. Patent neural foramina. L2-L3: Moderately degenerated disc with degenerative endplate changes with mild endplate edema. Disc osteophyte complex and facet arthrosis result in foraminal canal stenosis and mild bilateral foraminal stenosis. L3-L4: Mildly degenerated disc. Symmetric disc bulge and mild facet arthrosis result in mild bilateral foraminal stenosis. Patent spinal canal. L4-L5: Mildly degenerated disc. Symmetric disc bulge and bilateral facet arthrosis result in mild bilateral foraminal stenosis. Patent spinal canal. L5-S1: Moderately degenerated disc. Disc osteophyte complex and facet arthrosis result in moderate left and mild right foraminal stenosis Included sacroiliac joints: No joint effusion or marrow edema. IMPRESSION: 1. Moderately degenerated L2-L3 and L5-S1 discs. 2. Mild degenerative endplate edema at L2-L3. 3. No significant canal stenosis. 4. Moderate degenerative foraminal stenosis on the left L5-S1. Signed by: Dr. Gutierrez Morris M.D. on 01/21/2020 2:55 PM
== END ==
LOC: MRI 09:49
PROVIDERS: ATTEND Clinical Nurse Specialist Family Health
DX: M47.27 Other spondylosis with radiculopathy, lumbosacral region (principal)
CPT/HCPCS: 72148

== ENCOUNTER → 2020-02-03 | Outpatient (CLI) | payer MEDICARE, BC ==
--- NOTE | 2020-02-03 09:29 | Diagnostic Imaging Report ---
EXAM: SHOULDER RIGHT COMPLETE DATE: 02/03/2020 9:07 AM INDICATION: Right shoulder pain COMPARISON: None FINDINGS: Internal rotation and external rotation views of the right shoulder obtained. There is no evidence for acute fracture. There is mild inferior positioning of the humeral head in relation to the glenoid which is likely due to positioning. No significant dislocation is appreciated. The glenohumeral joint is otherwise unremarkable. There is mild AC joint arthropathy. No focal lytic or blastic abnormalities identified. The surrounding soft tissues are unremarkable without evidence for radiopaque foreign body. The visualized right hemithorax is clear. IMPRESSION: No acute radiographic abnormality identified within the right shoulder. Signed by: Dr. Wilmer Ryan MD on 02/03/2020 9:25 AM
--- NOTE | 2020-02-03 09:33 | Diagnostic Imaging Report ---
EXAM: CERVICAL SPINE 4 OR 5 VIEWS DATE: 02/03/2020 9:07 AM INDICATION: Neck pain COMPARISON: 10/13/2018 FINDINGS: Again identified are stable postsurgical changes from anterior cervical fusion at C4-C5 and C6-C7. Hardware appears intact and in stable position. Osseous fusion again noted between C5-C7. There is no evidence for acute fracture or dislocation. No focal lytic or blastic abnormalities identified. There are mild multilevel degenerative changes with suspected facet arthropathy, not significantly changed from the prior examination from 10/13/2018. The prevertebral soft tissues are unremarkable. The visualized lung apices are clear. IMPRESSION: Stable post surgical changes from cervical fusion as detailed above. No acute radiographic abnormality identified within the cervical spine. Signed by: Dr. Wilmer Ryan MD on 02/03/2020 9:30 AM
== END ==
LOC: RAD 08:26
DX: M25.511 Pain in right shoulder (principal); M54.2 Cervicalgia
CPT/HCPCS: 72050

== ENCOUNTER 2020-02-11 14:43 | Emergency (ER) | payer MEDICARE, BC ==
[~2020-02-11] VITALS: Ht 165.1 cm; Wt 76.7 kg
--- NOTE | 2020-02-11 15:26 | Emergency Department Note ---
History of Present Illnes History of Present Illness Chief Complaint: COVID PUI History of Present Illness This is a 74 year old female arrived to the ED after sustaining a mechanical fall- complaining of headache. Pt also saying she has COVID. Historian: Patient Arrival Mode: Car Onset (how long ago): minute(s) Radiation: Reports non-radiation Severity: mild Duration (how long): hour(s) Timing of current episode: constant Chronicity: new Context: Reports trauma/injury Relieving factors: none Exacerbating factors: none Past Medical/Family History Physician Review I have reviewed the patient's past medical and family history. Any updates have been documented here. Past Medical History Recent Fever: No Clinical Suspicion of Infectio: No New/Unexplained Change in Ment: No Past Medical History: Hypertension, Anxiety, Other Mental Illness Other Medical History: ABSCESSES TO ABDOMINAL AREA. ANEMIA DUE TO IRON DEF. Other Surgery: ABD SURGERIES, REPAIR, GASTRIC BYPASS; HIP SURGERY 1969; STOMACH STAPLED 1969 AND AGAIN 1979; 2 C-SECTIONS 1971,1975; NECK SURGERY 2001; C5-6 FUSED 2013; LOWER BACK SURGERY; RUYEN Y 2001; AGAIN ABD SURGERIES 2001,2002,2005. Social History Smoking Cessation: Never Smoker Counseling Performed: No Alcohol Use: None Other Last Tetanus: UNK Review of Systems Review of Systems Constitutional: Reports no symptoms EENTM: Reports no symptoms Cardiovascular: Reports no symptoms Respiratory: Reports no symptoms Gastrointestinal: Reports no symptoms Genitourinary: Reports no symptoms Musculoskeletal: Reports no symptoms Integumentary: Reports no symptoms Neurological: Reports as per HPI Psychological: Reports no symptoms Endocrine: Reports no symptoms Hematological/Lymphatic: Reports no symptoms Review of other systems: All other systems negative Physical Exam Related Data Allergies: Coded Allergies: garlic (Verified Allergy, Severe, PT ALLERGIC TO GARLIC, 03/09/18) strawberry (Verified Allergy, Severe, 03/09/18) ketorolac (Verified Allergy, Intermediate, ITCHING, 03/09/18) tramadol (Verified Allergy, Intermediate, ITCHING, 03/09/18) levofloxacin (Verified Allergy, Mild, 03/09/18) Haloperidol Lactate (Verified Allergy, Unknown, 03/09/18) Metronidazole HCl (Verified Allergy, Unknown, 03/09/18) amitriptyline (Verified Allergy, Unknown, RASH, 08/05/18) ciprofloxacin (Verified Allergy, Unknown, RASH, 08/05/18) codeine (Verified Allergy, Unknown, 03/09/18) formaldehyde (Verified Allergy, Unknown, RASH, 08/05/18) haloperidol (Verified Allergy, Unknown, 03/09/18) hydromorphone HCl (Verified Allergy, Unknown, 03/09/18) metoclopramide HCl (Verified Allergy, Unknown, 03/09/18) metronidazole (Verified Allergy, Unknown, 03/09/18) morphine (Verified Allergy, Unknown, INSOMNIA, 08/05/18) prochlorperazine edisylate (Verified Allergy, Unknown, 03/09/18) prochlorperazine maleate (Verified Allergy, Unknown, 03/09/18) sulfite (Verified Allergy, Unknown, 03/09/18) Uncoded Allergies: TAPE (Allergy, Unknown, 04/26/16) Triage Vital Signs Vital Signs Date Time Temp Pulse Resp B/P (MAP) Pulse Ox O2 Delivery O2 Flow Rate FiO2 02/11/20 14:53 102.7 98 20 123/74 100 Room Air Vital signs reviewed: Yes Physical Exam CONSTITUTIONAL Constitutional: Present well-developed, Present well-nourished HENT HENT: Present normocephalic, Present oropharynx clear/moist, Present nose normal, Present other HENT L/R: Present left ext ear normal, Present right ext ear normal EYES Eyes: Reports PERRL, Reports conjunctivae normal NECK Neck: Present ROM normal PULMONARY Pulmonary: Present effort normal, Present breath sounds normal CARDIOVASCULAR Cardiovascular: Present regular rhythm, Present heart sounds normal, Present capillary refill normal, Present normal rate GASTROINTESTINAL Abdominal: Present soft, Present nontender, Present bowel sounds normal GENITOURINARY Genitourinary: Present exam deferred SKIN Skin: Present warm, Present dry MUSCULOSKELETAL Musculoskeletal: Present ROM normal NEUROLOGICAL Neurological: Present alert, Present oriented x 3, Present no gross motor or sensory deficits PSYCHOLOGICAL Psychological: Present mood/affect normal, Present judgement normal Results Laboratory Lab results reviewed: Yes Assessment & Plan Medical Decision Making MDM 74-year-old female arrives to the ED after sustaining a mechanical fall, superficial abrasion noted to the back of the head. Patient was neurovascularly intact. Patient stable for discharge home. Assessment & Plan Final Impression: (1) Concussion (2) Contusion Depart Disposition: HOME, SELF-CARE Last Vital Signs Date Time Temp Pulse Resp B/P (MAP) Pulse Ox O2 Delivery O2 Flow Rate FiO2 02/11/20 14:53 102.7 98 20 123/74 100 Room Air Home Meds Reported Medications Albuterol Sulfate (VENTOLIN HFA) 18 Gm Hfa.aer.ad, 1 INH INH DAILY PRN for SHORTNESS OF BREATH 09/18/19 Clonidine Hcl (CLONIDINE HCL) 0.1 Mg Tablet, 1 TAB PO DAILY, #60 TAB 09/18/19 Diphenhydramine Hcl (BENADRYL) 25 Mg Capsule, 25 MG PO Q6H PRN for ITCHING 09/18/19 Multivitamin (MULTI-VITAMIN DAILY) 1 Each Tablet, PO DAILY 09/08/19 Gabapentin (GABAPENTIN) 300 Mg Capsule, 300 MG PO BID, #60 CAP 06/23/19 Levothyroxine Sodium (LEVOTHYROXINE SODIUM) 50 Mcg Tablet, 25 MCG PO DAILY, #30 TAB 06/16/19 Losartan Potassium (LOSARTAN POTASSIUM) 25 Mg Tablet, 25 MG PO DAILY 08/05/18 Furosemide (FUROSEMIDE) 40 Mg Tablet, 20 MG PO PRN, #30 TAB 08/05/18 Calcium Carbonate/Vitamin D3 (CALCIUM 500+D TABLET CHEW) 1 Each Tab.chew, 1 TAB PO BID 09/12/16 Promethazine Hcl* (PHENERGAN SUPP*) 25 Mg Supp, 25 MG RI PRN PRN for NAUSEA 09/12/16 Famotidine (FAMOTIDINE) 20 Mg Tab, 20 MG PO BID, #30 TAB 09/12/16 Temazepam (TEMAZEPAM) 15 Mg Capsule, 15 MG PO HS 01/02/16 Pantoprazole Sodium (PROTONIX) 40 Mg Suspdr.pkt, 40 MG PO BID, #30 TAB 01/02/16 Ondansetron (ZOFRAN ODT) 4 Mg Tab.rapdis, 4 MG PO DAILY PRN for NAUSEA, TAB 01/02/16 Fluoxetine Hcl (FLUOXETINE HCL) 20 Mg Capsule, 20 MG PO DAILY, #30 CAP 01/02/16 Cyanocobalamin (CYANOCOBALAMIN INJECTION) 1,000 Mcg/Ml Soln, 1000 MCG IM MONTHLY, VIAL 01/02/16 Dicyclomine Hcl (BENTYL) 10 Mg Capsule, 20 MG PO QID, CAP 01/02/16 Alprazolam (ALPRAZOLAM) 0.25 Mg Tablet, 0.25 MG PO DAILY PRN for ANXIETY, TAB 01/02/16 JOSE MAYNARD, Feb 11, 2020 15:26
[2020-02-11 16:02] LABS: BASOPHILS % 0.1 % (0.0-1.0); EOSINOPHILS % 0.3 % (0.0-6.0); HEMOGLOBIN 11.3 g/dL (12.0-16.0); LYMPHOCYTES # (AUTO) 1.4 (1.0-3.2); MEAN CORPUSCULAR HEMOGLOBIN 29.4 pg (28-32); MEAN CORPUSCULAR HGB CONC 31.4 g/dL (31-35); MEAN CORPUSCULAR VOLUME 93.5 fL (81-99); MONOCYTES # (AUTO) 0.7 (0.2-0.8); NEUTROPHILS # (AUTO) 7.9 (2.1-6.9); NEUTROPHILS % 77.1 % (38.7-80.0); PLATELET COUNT 151 x10e3/uL (140-360); RED BLOOD COUNT 3.85 x10e6/uL (3.6-5.1); RED CELL DISTRIBUTION WIDTH 12.7 % (11.7-14.4)
[2020-02-11 16:06] LABS: INR 0.93; PROTHROMBIN TIME 12.9 seconds (11.9-14.5)
[2020-02-11 16:07] LABS: PARTIAL THROMBOPLASTIN TIME 35.9 seconds (23.8-35.5)
--- NOTE | 2020-02-11 16:08 | Diagnostic Imaging Report ---
Exam: Head CT without contrast History: Trauma, fall Comparison studies: None Technique: Axial images were obtained from the skull base to the vertex. Coronal and sagittal images reconstructed from the axial data. Dose modulation, iterative reconstruction, and/or weight based adjustment of the mA/kV was utilized to reduce the radiation dose to as low as reasonably achievable. Radiation dose: Total DLP: 1916.56 mGy*cm. Estimated effective dose: DLP x 0.015 Intravenous contrast: None Findings: Exam is suboptimal due to artifacts related to patient motion. In spite of limitations: Scalp: No abnormalities. Bones: No fractures, blastic or lytic lesions. Brain sulci: Mildly prominent but age appropriate. Ventricles: Normal in size and configuration. No hydrocephalus. Extra-axial spaces: No masses, no fluid collection. Parenchyma: New mass, acute hemorrhage or acute or chronic cortical insults. A few hypodensities in the supratentorial white matter are nonspecific but are most compatible with chronic microvascular ischemic changes. Sellar/suprasellar region: No abnormalities. Craniocervical junction: Patent foramen magnum. No Chiari one malformation. Incidental findings: Bilateral intraocular lens replacements. Calcified atherosclerosis in the carotid siphons and left intradural vertebral artery. IMPRESSION: 1. No acute abnormalities. 2. Mild chronic microvascular ischemic changes. Signed by: Dr. Gutierrez Morris M.D. on 02/11/2020 4:04 PM
[2020-02-11 16:13] LABS: ALANINE AMINOTRANSFERASE 35 IU/L (0-55); ALBUMIN 3.2 g/dL (3.5-5.0); ALBUMIN/GLOBULIN RATIO 0.9 (0.8-2.0); ALKALINE PHOSPHATASE 74 IU/L (40-150); ANION GAP 11.3 mmol/L (8-16); BLOOD UREA NITROGEN 18 mg/dL (7-26); BUN/CREATININE RATIO 21 (6-25); CALCIUM 9.2 mg/dL (8.4-10.2); CARBON DIOXIDE 26 mmol/L (22-29); CHLORIDE 104 mmol/L (98-107); CREATININE, SERUM 0.84 mg/dL (0.57-1.11); EST GLOMERULAR FILTRATION RATE > 60 ML/MIN (60-); GLUCOSE 105 mg/dL (74-118); POTASSIUM 3.3 mmol/L (3.5-5.1); SODIUM 138 mmol/L (136-145)
--- NOTE | 2020-02-11 16:13 | Diagnostic Imaging Report ---
CT of the chest, without contrast. History: Fall, shortness of breath. Comparison: Chest radiograph from 09/18/2019.. Technique: Multidetector CT scanning of the chest was performed from the level of the apices to the upper abdomen without contrast. Coronal and sagittal multiplanar reformations were obtained. RADIATION DOSE: Total DLP: 1916.56 mGy*cm Dose modulation, iterative reconstruction, and/or weight based adjustment of the mA/kV was utilized to reduce the radiation dose to as low as reasonably achievable. FINDINGS: The thyroid and remaining visualized structures within the base of the neck demonstrate no significant abnormalities. The thoracic aorta is normal course and caliber. The main pulmonary artery is normal in caliber measuring 2.8 cm in maximal diameter. The heart is not enlarged. No abnormal pericardial fluid is present. Nonspecific normal sized mediastinal lymph nodes are noted. No abnormal axillary, mediastinal, or hilar lymph node enlargement is appreciated by CT size criteria. The trachea and proximal airways are patent. There are extensive patchy groundglass and consolidative opacities present within the right upper lobe. These findings were not present on the prior chest radiograph from 09/18/2019. Mildly increased groundglass opacities noted within the right lower lobe. Mild left basilar atelectasis/scarring noted. There is no evidence for pneumothorax or significant pleural effusion. There are multiple surgical clips within the upper abdomen likely from prior Whipple procedure. No acute abnormality is identified within the upper abdomen. Partially visualized cervical fusion hardware noted. There is kyphosis and degenerative changes noted of the visualized spine. There is no evidence for acute fracture or destructive process. The extrathoracic soft tissues are unremarkable. IMPRESSION: Patchy ground glass and consolidative opacities identified predominantly involving the right upper lobe and to a lesser extent the right lower lobe. Findings are nonspecific but can be seen in the setting of a multifocal infectious process. Signed by: Dr. Wilmer Ryan MD on 02/11/2020 4:10 PM
--- NOTE | 2020-02-11 16:22 | Diagnostic Imaging Report ---
History: Trauma, fall Comparison studies: Cervical spine x-ray 02/03/[address] 04/05/2017 Technique: Axial images were obtained through the cervical region. Coronal and sagittal images reconstructed from the axial data. Dose modulation, iterative reconstruction, and/or weight based adjustment of the mA/kV was utilized to reduce the radiation dose to as low as reasonably achievable. Intravenous contrast: None Findings: Atlantoaxial articulation: The C1 and C2 vertebrae are fused. Alignment: Mild hyperlordotic curvature. No subluxations. Cervicomedullary junction: No abnormalities. The foramen magnum is patent. Soft tissues: No gross acute abnormalities. Vertebrae: Postsurgical changes of prior C4-C7 anterior cervical discectomy and fusion with disc spacer in place at C4-C5, and anterior fixation plate at C4-C5 and at C6-C7. There is solid interbody fusion at C5-C6 and at C6-C7. Minimal lucency present along the C5 vertebral body fixation screws, minimally increased from prior exam. There is otherwise no other evidence of hardware failure. The C1 and C2 vertebrae and C2-C3 facets are fused. No fracture or destructive lytic or blastic lesion. Degenerative changes: Degenerated calcified disc with mild loss of disc height at C2-C3 and C3-C4. Multilevel uncovertebral and facet arthrosis with moderate left and mild right foraminal stenosis at C3-C4 and moderate bilateral foraminal stenosis at C4-C5. Additional findings: Ground glass densities with central annular septal thickening at the right lung apex and mild scarring at the left lung apex. Please refer to dedicated chest CT report from the same date for further characterization of intrathoracic findings. Incidental findings: Nonspecific inflammatory mucosal thickening in the right maxillary sinus. Bone graft along the maxillary sinus alveolar recess for right maxillary molar implant. IMPRESSION: 1. No cervical spine fracture or subluxation. 2. Surgical changes of C4-C7 ACDF. Lucency along the anterior C5 vertebral body fixation screws may indicate hardware loosening. No other evidence of hardware failure. 3. Degenerative changes as described. 4. Right upper lobe ground glass densities, possibly infectious. Please refer to same-day chest CT report for further characterization of intrathoracic findings. Ligament, spinal cord and or vascular abnormalities cannot be excluded on the basis of this examination Signed by: Dr. Gutierrez Morris M.D. on 02/11/2020 4:19 PM
--- OUTSIDE RECORDS SUMMARY | 2020-02-11 16:37 | XMS REPORT | Continuity of Care Document ---
Author Author [facility] t Organization [facility] Address [address] [place] [address] [address] [place] [address] Phone Unavailable Care Team Providers Care Application Design Engineer Name Role Phone ISIS VELASQUEZ MD PCP Ángela MAYNARD Attphys Unavailable ISIS VELASQUEZ Attphys Unavailable Jeff DUMAS Attphys Unavailable JACOB HERNANDEZ Attphys Unavailable Jeff MORSE Attphys Unavailable YULISA VELASQUEZ Attphys Unavailable ISAK RODRIGUEZ M.D. Attphys Unavailable DAMIÁN KRISHNAMURTHY Attphys Unavailable STORMY LITTLE Attphys Unavailable JAZZY FELIX P.A. Attphys Unavailable Macho Quintana M.D. Attphys Unavailable ISAK RODRIGUEZ Attphys Unavailable ANTONIO RODRIGUEZ M.D. Attphys Unavailable YUN RIVERA M.D. Attphys Unavailable [facility], ECHO Attphys Unavailable [facility], NUCLEAR Attphys Unavailable DAMIÁN SALDIVAR M.D. Attphys Unavailable MOLINA RICO NP Attphys Unavailable ISAK RODRIGUEZ Admphys Unavailable Payers Payer Name Policy Type Policy Number Effective Date Expiration Date Ángela del toro [facility] [id number] 2019 00:00:00 [facility] Medicare A & B [id number] 2007 00:00:00 [facility] Problems Condition Name Condition Details Condition Category Status Onset Date Resolution Date Last Treatment Date Treating Clinician Comments Source Intractable abdominal pain Intractable abdominal pain Problem Active 2016-01-02 00:00:00 [facility] History of Acute foot pain, left History of Acute foot pain, lef t Problem Resolved [facility] History of Anginal equivalent History of Anginal equivalent Problem Resolved [facility] History of backache History of backache Problem Resolved [facility] History of burning on urination History of burning on urination Problem Resolved [facility] History of candidiasis History of candidiasis Problem Resolved [facility] History of chest pain History of chest pain Problem Resolved [facility] History of Superficial bruising of foot History of Superfici al bruising of foot Problem Resolved [facility] History of Costochondritis History of Costochondritis Problem Resolved [facility] History of heartburn History of heartburn Problem Resolved [facility] History of hemoptysis History of hemoptysis Problem Resolved [facility] History of hyperglycemia History of hyperglycemia Problem Resolved [facility] History of hypoglycemia History of hypoglycemia Problem Resolved [facility] History of influenza vaccination History of influenza vaccinatio n Problem Resolved [facility] History of Migraine History of Migraine Problem Resolved [facility] Neck pain Neck pain Problem Active [facility] Breast cancer screening Breast cancer screening Problem Active [facility] History of Pyuria History of Pyuria Problem Resolved [facility] History of Tendon tear, foot History of Tendon tear, foot Problem Re solved [facility] History of Upper respiratory infection, acute History of Upper respiratory infection, acute Problem Resolved [facility] Wrist pain Wrist pain Problem Active [facility] Personal history of urinary tract infection Personal h istory of urinary tract infection Problem Resolved [facility] Fatigue Fatigue Problem Active [facility] Decreased renal function Decreased renal function Problem Active [facility] Frequent urination Frequent urination Problem Active [facility] Urinary tract infection Urinary tract infection Problem Active [facility] Adverse drug effect Adverse drug effect Problem Active [facility] Ganglion of left wrist Ganglion of left wrist Problem Active [facility] Diarrhea, functional Diarrhea, functional Problem Active [facility] Nausea with vomiting, unspecified Nausea with vomiting, unspecif ied Problem Active [facility] Chronic pain Chronic pain Problem Active [facility] Leg pain Leg pain Problem Active [facility] Other form of dyspnea Other form of dyspnea Problem Active [facility] Recurrent UTI Recurrent UTI Problem Active [facility] Acute pain of right hip Acute pain of right hip Problem Active [facility] Chondrocalcinosis Chondrocalcinosis Problem Active [facility] Hypophosphatemia Hypophosphatemia Problem Active [facility] Iron deficiency anemia Iron deficiency anemia Problem Active [facility] Skin rash Skin rash Problem Active [facility] Chest pain, atypical Chest pain, atypical Problem Active [facility] Hypoxemia Hypoxemia Problem Active [facility] Restlessness and agitation Restlessness and agitation Problem Active [facility] Allergy to sulfa drugs Allergy to sulfa drugs Problem Active [facility] Urinary retention with incomplete bladder emptying Uri nary retention with incomplete bladder emptying Problem Active [facility] Anemia Anemia Problem Active [facility] Anxiety Anxiety Problem Active [facility] Arthritis of carpometacarpal (CMC) joint of left thumb Arthritis of carpometacarpal (CMC) joint of left thumb Problem Active [facility] Asthma, mild intermittent Asthma, mild intermittent Problem Active [facility] Gastroesophageal reflux disease Gastroesophageal reflux disease Pro blem Active [facility] Headache Headache Problem Active Unive [facility] Insomnia Insomnia Problem Active [facility] Interstitial cystitis Interstitial cystitis Problem Active [facility] Vitamin B12 deficiency Vitamin B12 deficiency Problem Active [facility] Advance directive on file Advance directive on file Problem Active [facility] Edema Edema Problem Active [facility] Hypokalemia Hypokalemia Problem Active [facility] Hypoproteinemia Hypoproteinemia Problem Active [facility] Osteoporosis Osteoporosis Problem Active [facility] Hypothyroidism Hypothyroidism Problem Active [facility] Mammogram declined Mammogram declined Problem Active [facility] Pruritus Pruritus Problem Active [facility] Neuropathy, peripheral Neuropathy, peripheral Problem Active [facility] Essential (primary) hypertension Essential (primary) hypertensio n Problem Active [facility] Depressive disorder Depressive disorder Problem Active [facility] Sialorrhea Sialorrhea Problem Active [facility] Acute medication-induced akathisia Acute medication-induced akat hisia Problem Active [facility] Aspiration pneumonia Aspiration pneumonia Problem Active [facility] Dehydration Dehydration Problem Active [facility] Obstipation Obstipation Problem Active [facility] Vomiting Vomiting Problem Active [facility] Allergies, Adverse Reactions, Alerts Allergy Name Allergy Type Status Severity Reaction(s) Onset Date Inacti ve Date Treating Clinician Comments Source Morphine Allergy to Substance Active INSOMNIA 2018-08-05 00:00:00 [facility] Ciprofloxacin Allergy to Substance Active RASH 2018-08-05 00:00: 00 [facility] Formaldehyde Allergy to Substance Active RASH 2018-08-05 00:00:0 0 [facility] Amitriptyline Allergy to Substance Active RASH 2018-08-05 00:00: 00 [facility] prochlorperazine edisylate Allergy to Substance Active 2018-03-09 00:00:00 [facility] prochlorperazine maleate Allergy to Substance Active 20 25-03-02 00:00:00 [facility] Haloperidol Lactate Allergy to Substance Active 2018-03-09 00:00:00 [facility] hydromorphone HCl Allergy to Substance Active 2018-03-09 00 :00:00 [facility] metoclopramide HCl Allergy to Substance Active 2018-03-09 0 0:00:00 [facility] Metronidazole HCl Allergy to Substance Active 2018-03-09 00 :00:00 [facility] Haloperidol Allergy to Substance Active 2018-03-09 00:00:00 [facility] Codeine Allergy to Substance Active 2018-03-09 00:00:00 [facility] garlic Allergy to Substance Active Severe PT ALLERGIC TO GARLIC 2018-03-09 00:00:00 [facility] Metronidazole Allergy to Substance Active 2018-03-09 00:00: 00 [facility] Tramadol Allergy to Substance Active Moderate ITCHING 2018-03-09 00:00:00 [facility] Ketorolac Allergy to Substance Active Moderate ITCHING 2018-03-09 00:00 :00 [facility] Levofloxacin Allergy to Substance Active Mild 2018-03-09 00:00:0 0 [facility] Sulfite Allergy to Substance Active 2018-03-09 00:00:00 [facility] [place] Allergy to Substance Active Severe 2018-03-09 00:00:00 [facility] TAPE Allergy to Substance Active 2016-04-26 00:00:00 [facility] Amitriptyline HCl TABS Allergy to drug (finding) Active Rash [facility] Bactrim TABS Allergy to drug (finding) Active [facility] Cipro TABS Allergy to drug (finding) Active [facility] Codeine Derivatives Allergy to drug (finding) Active [facility] Compazine TABS Allergy to drug (finding) Active [facility] Dilaudid-HP SOLN Allergy to drug (finding) Active [facility] Flagyl CAPS Allergy to drug (finding) Active [facility] Formaldehyde SOLN Allergy to drug (finding) Active [facility] Gabapentin TABS Allergy to drug (finding) Active Visual Disturbanc e [facility] garlic Allergy to drug (finding) Active [facility] Haldol SOLN Allergy to drug (finding) Active [facility] Levaquin TABS Allergy to drug (finding) Active [facility] Morphine Derivatives Propensity to adverse reactions to drug (findi ng) Active Insomnia [facility] Reglan Allergy to drug (finding) Active [facility] Sulfites Allergy to drug (finding) Active [facility] traMADol HCl TABS Propensity to adverse reactions to drug (finding) Active Itching [facility] Tape Allergy to substance (finding) Active [facility] Toradol SOLN Allergy to drug (finding) Inactive [facility] Family History Family Member Diagnosis Comments Start Date Stop Date Source aunt Family history of Colon Cancer [facility] Mother Family history of Diabetes Mellitus [facility] Father Family history of Diabetes Mellitus [facility] Father Family history of Acute Myocardial Infarction [facility] Father Family history of Transient Ischemic Attack [facility] Medications Ordered Medication Name Filled Medication Name Start Date Stop Da te Current Medication? Ordering Clinician Indication Dosage Frequency Signature (SIG) Comments Components Source Gabapentin 300 MG Oral Capsule Gabapentin 300 MG Oral Capsul e 2019-02-09 00:00:00 Yes ISAK RODRIGUEZ M.D. Q0.5D TAKE 1 CAPSULE TW ICE DAILY. [facility] Levothyroxine Sodium 25 MCG Oral Tablet Levothyroxine Sodium 25 MCG Oral Tablet 2018-12-15 00:00:00 Yes ISAK RODRIGUEZ M.D. T PIPER 1 TABLET BY MOUTH DAILY [facility] FLUoxetine HCl - 20 MG Oral Capsule FLUoxetine HCl - 20 MG O ral Capsule 2018-11-24 08:43:47 Yes ISAK RODRIGUEZ M.D. TAKE ONE CAPSULE BY MOUTH DAILY [facility] Ventolin HFA 108 (90 Base) MCG/ACT Inhalation Aerosol Solution Ventolin HFA 108 (90 Base) MCG/ACT Inhalation Aerosol Solution 2018-10-10 13:12:39 Yes MOLINA RICO APRN INHALE ONE TO TWO PU FFS EVERY 4 TO 6 HOURS NEEDED [facility] Cyanocobalamin 1000 MCG/ML Injection Solution Cyanocob alamin 1000 MCG/ML Injection Solution 2018-06-19 09:36:43 Yes MOLINA RICO APRN INJECT 1ML IN MUSCLE ONCE A MONTH [facility] Amitriptyline Hcl 25 Mg Tablet, 25 Mg Oral Amitriptyli ne Hcl 25 Mg Tablet, 25 Mg Oral 2018-03-18 00:00:00 2018-08-05 00:00:00 No Isak Rodriguez Md 25 Bedtime [facility] Furosemide 20 MG Oral Tablet Furosemide 20 MG Oral Tablet 2017-11-05 00:00:00 Yes ISAK RODRIGUEZ M.D. QD TAKE 1 TABLET BY MOUTH DAILY [facility] cloNIDine HCl - 0.1 MG Oral Tablet cloNIDine HCl - 0.1 MG Or al Tablet 2017-01-23 00:00:00 Yes ISAK RODRIGUEZ M.D. TAKE 1 TABLET BY MOUTH AT BEDTIME [facility] Losartan Potassium 25 MG Oral Tablet Losartan Potassium 25 M G Oral Tablet 2017-01-23 00:00:00 Yes ISAK RODRIGUEZ M.D. TAKE 1 TABLET BY MOUTH EVERY DAY [facility] Clonidine Hcl (Catapres) 0.1 Mg Tablet, 0.1 Mg Oral Cl onidine Hcl (Catapres) 0.1 Mg Tablet, 0.1 Mg Oral 2017-01-16 00:00:00 2019-06-16 00:00:00 No Ildefonso Rodriguez Md .1 Bedtime [facility] Losartan Potassium (Cozaar) 25 Mg Tablet, 25 Mg Oral L osartan Potassium (Cozaar) 25 Mg Tablet, 25 Mg Oral 2017-01-16 00:00:00 2018-08-05 00:00:00 No Isak Rodriguez Md 25 Twice A Day [facility] Cefuroxime Axetil (Cefuroxime) 250 Mg Tablet, 250 Mg O ral Cefuroxime Axetil (Cefuroxime) 250 Mg Tablet, 250 Mg Oral 2017-01-16 00:00:00 2017-02-20 00:00:00 No Isak Rodriguez Md 250 Every 12 Hours [facility] Promethegan 25 MG Rectal Suppository Promethegan 25 MG Recta l Suppository 2016-11-02 00:00:00 Yes ISAK RODRIGUEZ M.D. UNWRAP AND INSERT 1 SUPPOSITORY RECTALLY EVERY 12 HOURS NEEDED [facility] [id number] 50-325-40 MG Oral Capsule But [id number] 50-325-40 MG Oral Capsule 2016-09-10 00:00:00 Yes ISAK RODRIGUEZ M.D. TAKE 1 CAPSULE BY MOUTH EVERY DAY NEEDED [facility] Prednisone 20 Mg Tab, 10 Mg Oral Prednisone 20 Mg Tab, 10 Mg Oral 2016-04-30 00:00:00 2016-09-12 00:00:00 Екатерина Rodriguez Md 10 Daily [facility] Cristina Contour Next Test STRP Cristina Contour Next Test STRP 2015-11-06 7 00:00:00 Yes ISAK RODRIGUEZ M.D. USE DIRECTED [facility] Temazepam 15 MG Oral Capsule Temazepam 15 MG Oral Capsule 2014-02-06 0 00:00:00 Yes ISAK RODRIGUEZ M.D. TAKE ONE CAPSULE BY M OUTH EVERY NIGHT AT BEDTIME [facility] ALPRAZolam 0.25 MG Oral Tablet ALPRAZolam 0.25 MG Oral Table t 2014-02-24 00:00:00 Yes ISAK RODRIGUEZ M.D. TAKE ONE TABLET B Y MOUTH DAILY [facility] Syringe 25G X 1" 3 ML Syringe 25G X 1" 3 ML 2013-05-27 00:00:00 Yes MOLINA RICO APRN USE DIRECTED. [facility] Ondansetron 4 MG Oral Tablet Disintegrating Ondansetro n 4 MG Oral Tablet Disintegrating 2013-04-16 00:00:00 Yes MOLINA RICO APRN QD DISSOLVE ONE TABLET BY MOUTH DAILY NEEDED FOR NAUSEA [facility] Protonix 40 MG Oral Packet Protonix 40 MG Oral Packet Yes 1 Q0.5D TAKE 1 TABLET TWICE DAILY [facility] Calcium + D TABS Calcium + D TABS Yes 1 Q0.5 D TAKE 1 TABLET TWICE DAILY [facility] Juice Plus Fibre LIQD Juice Plus Fibre LIQD Yes ORCHARD BLEND, MARLENY BLEND, AND GARDEN BLEND DAILY [facility] Probiotic CAPS Probiotic CAPS Yes 1 QD TAKE 1 CAP EDWIGE DAILY [facility] Triamcinolone Acetonide 0.1 % External Cream Triamcino lone Acetonide 0.1 % External Cream Yes TWICE DAILY- PRESCRIBED BY DERM [facility] Hydrocortisone 2.5 % External Cream Hydrocortisone 2.5 % External Cre am Yes Q0.5D APPLY SPARINGLY TO AFFECTED AREA(S) TWIC E DAILY [facility] Famotidine TABS Famotidine TABS Yes Q0.5D TAKE 1 TABLET TWICE DAILY. [facility] Losartan Potassium 25 MG Oral Tablet Losartan Potassium 25 MG Oral Tablet Yes 1 QD TAKE 1 TABLET DAILY. [facility] Dicyclomine HCl - 10 MG Oral Capsule Dicyclomine HCl - 10 MG Oral C apsule Yes TAKE 1 CAPSULE EVERY 6 HOURS- DR. ARREGUIN [facility] Potassium TABS Potassium TABS Yes 1 QD TAKE 1 TAB LET DAILY. [facility] Albuterol Sulfate (Ventolin Hfa) 18 Gm Hfa.aer.ad Albu terol Sulfate (Ventolin Hfa) 18 Gm Hfa.aer.ad Yes 1 Daily as needed for Shortness Of Breath [facility] Alprazolam 0.25 Mg Tablet Alprazolam 0.25 Mg Tablet Yes .25 Daily as needed for Anxiety [facility] Calcium Carbonate/Vitamin D3 (Calcium 500+D Tablet Lexy w) 1 Each Tab.chew Calcium Carbonate/Vitamin D3 (Calcium 500+D Tablet Chew) 1 Each Tab.chew Yes 1 Twice A Day [facility] Clonidine Hcl 0.1 Mg Tablet Clonidine Hcl 0.1 Mg Tablet Yes 1 Daily [facility] Cyanocobalamin (Cyanocobalamin Injection) 1,000 Mcg/Ml Soln Cyanocobalamin (Cyanocobalamin Injection) 1,000 Mcg/Ml Soln Yes 1000 Monthly [facility] Dicyclomine Hcl (Bentyl) 10 Mg Capsule Dicyclomine Hcl (Bentyl) 10 Mg Capsule Yes 20 Four Times Daily [facility] Diphenhydramine Hcl (Benadryl) 25 Mg Capsule Diphenhyd ramine Hcl (Benadryl) 25 Mg Capsule Yes 25 Every 6 Hours as needed for Itching [facility] Famotidine 20 Mg Tab Famotidine 20 Mg Tab Yes 20 Twice A Day [facility] Fluoxetine Hcl 20 Mg Capsule Fluoxetine Hcl 20 Mg Capsule Y es 20 Daily [facility] Furosemide 40 Mg Tablet Furosemide 40 Mg Tablet Yes 20 As Needed [facility] Gabapentin 300 Mg Capsule Gabapentin 300 Mg Capsule Yes 300 Twice A Day [facility] Levothyroxine Sodium 50 Mcg Tablet Levothyroxine Sodium 50 Mcg Tablet Yes 25 Daily [facility] Losartan Potassium 25 Mg Tablet Losartan Potassium 25 Mg Tablet Yes 25 Daily [facility] Multivitamin (Multi-Vitamin Daily) 1 Each Tablet Multi vitamin (Multi-Vitamin Daily) 1 Each Tablet Yes Daily [facility] Ondansetron (Zofran Odt) 4 Mg Tab.rapdis Ondansetron ( Zofran Odt) 4 Mg Tab.rapdis Yes 4 Daily as needed for Nausea [facility] Pantoprazole Sodium (Protonix) 40 Mg Suspdr.pkt Pantop razole Sodium (Protonix) 40 Mg Suspdr.pkt Yes 40 Twice A Day [facility] Promethazine Hcl (Phenergan Supp*) 25 Mg Supp Prometha zine Hcl (Phenergan Supp*) 25 Mg Supp Yes 25 As Needed as needed for Santi sea [facility] Temazepam 15 Mg Capsule Temazepam 15 Mg Capsule Yes 15 Bedtime [facility] Benadryl 25 Mg, Oral Benadryl 25 Mg, Oral 2019-09-18 00:00:00 No As Needed [facility] Clonidine , 0.1 Mg Oral Clonidine , 0.1 Mg Oral 2019-09-18 00:00 :00 No .1 Daily [facility] Ventolin Hfa 108 , 1 Inh Inhalation Ventolin Hfa 108 , 1 Inh Inh alation 2019-09-18 00:00:00 No 1 As Needed [facility] Lactobac Cmb #3/Fos/Pantethine (Probioti c & Acidophilus Cap) 1 Each Capsule, Oral Lactobac Cmb #3/Fos/Pantethine (Probioti c & Acidophilus Cap) 1 Each Capsule, Oral 2019-09-14 00:00:00 No Daily [facility] Super Stress B , Super Stress B , 2019-09-14 00:00:00 No Daily [facility] Butalbital/Aspirin/Caffeine (Fiorinal 50 -325-40 Mg Capsule) 1 Each Capsule, 1 Cap Oral Butalbital/Aspirin/Caffeine (Fiorinal 50 -325-40 Mg Capsule) 1 Each Capsule, 1 Cap Oral 2019-09-08 00:00:00 No 1 Daily as needed for Headache [facility] Hydroxyzine Hcl 25 Mg Tablet, 25 Mg Oral Hydroxyzine H cl 25 Mg Tablet, 25 Mg Oral 2019-09-08 00:00:00 No 25 Four Times Daily [facility] Juice Plus , 1 Tab Oral Juice Plus , 1 Tab Oral 2019-09-08 00:00 :00 No 1 Daily [facility] Lactobac Cmb #3/Fos/Pantethine (Probioti c & Acidophilus Cap) 1 Each Capsule, 1 Tab Oral Lactobac Cmb #3/Fos/Pantethine (Probioti c & Acidophilus Cap) 1 Each Capsule, 1 Tab Oral 2019-09-08 00:00:00 No 1 Willian y [facility] Nitroglycerin 0.4 Mg Tab.subl, 0.4 Mg Sublingual Nitro glycerin 0.4 Mg Tab.subl, 0.4 Mg Sublingual 2019-09-08 00:00:00 No .4 As Nee ded [facility] Potassium Chloride 10 Meq Tab.er.prt, Unknown Dose Or al Potassium Chloride 10 Meq Tab.er.prt, Unknown Dose Oral 2019-09-08 00:00:00 No As Needed [facility] Hydrocortisone 2.5% , Unknown Dose Topically Hydrocor tisone 2.5% , Unknown Dose Topically 2019-06-23 00:00:00 No Twice A Day [facility] Triamcinolone Acet (Triamcinolone Acetonide) 15 Gm Cr, Unknown Dose Topical Triamcinolone Acet (Triamcinolone Acetonide) 15 Gm Cr, Unknown Dose Topical 2019-06-16 00:00:00 No Twice A Day [facility] Albuterol Sulfate (Proair Hfa Inhaler*) 8.5 Gm Inh, 2 Inh Inhalation Albuterol Sulfate (Proair Hfa Inhaler*) 8.5 Gm Inh, 2 Inh Inhalation 2018-08-05 00:00:00 No 2 Every 4 Hours as needed for Shor tness Of Breath [facility] Furosemide 40 Mg Tablet, 40 Mg Oral Furosemide 40 Mg Tablet, 40 Mg Oral 2018-08-05 00:00:00 No 40 As Needed [facility] Gabapentin 300 Mg Capsule, 300 Mg Oral Gabapentin 300 Mg Capsule , 300 Mg Oral 2018-08-05 00:00:00 No 300 Daily [facility] Multivitamin (Multivitamins) 1 Each Capsule, 1 Cap Ora l Multivitamin (Multivitamins) 1 Each Capsule, 1 Cap Oral 2018-08-05 00:00:00 No 1 Daily [facility] Roloxifene , 60 Mg Oral Roloxifene , 60 Mg Oral 2018-08-05 00:00 :00 No 60 Daily [facility] Hydroxyzine Pamoate 25 Mg Capsule, 25 Mg Oral Hydroxyz ine Pamoate 25 Mg Capsule, 25 Mg Oral 2017-02-22 00:00:00 No 25 Four Times Da hu [facility] Hyoscyamine Sulfate (Levsin) 0.125 Mg Tablet, 0.125 Mg Oral Hyoscyamine Sulfate (Levsin) 0.125 Mg Tablet, 0.125 Mg Oral 2017-02-22 00:00:00 No .125 As Needed [facility] Furosemide 40 Mg Tablet, 20 Mg Oral Furosemide 40 Mg Tablet, 20 Mg Oral 2017-01-16 00:00:00 No 20 Daily [facility] Juice Plus , 1 Tab Oral Juice Plus , 1 Tab Oral 2017-01-16 00:00 :00 No 1 Daily [facility] Multivitamin (Multivitamins) 1 Each Capsule, 1 Tab Ora l Multivitamin (Multivitamins) 1 Each Capsule, 1 Tab Oral 2017-01-16 00:00:00 No 1 Daily [facility] Sulfamethoxazole/Trimethoprim (Bactrim Ds Tablet) 1 Ea ch Tablet, 1 Tab Oral Sulfamethoxazole/Trimethoprim (Bactrim Ds Tablet) 1 Each Tablet, 1 Tab Oral 2017-01-16 00:00:00 No 1 Daily [facility] Verapamil Hcl 120 Mg Tablet, 120 Mg Oral Verapamil Hcl 120 Mg Tablet, 120 Mg Oral 2017-01-16 00:00:00 No 120 Twice A Day [facility] Meloxicam 7.5 Mg Tablet, 7.5 Mg Oral Meloxicam 7.5 Mg Tablet, 7. 5 Mg Oral 2016-12-27 00:00:00 No 7.5 Daily [facility] Raloxifene Hcl (Evista) 60 Mg Tablet, 60 Mg Oral Ralox ifene Hcl (Evista) 60 Mg Tablet, 60 Mg Oral 2016-12-27 00:00:00 No 60 Daily [facility] Sucralfate (Carafate) 1 Gm/10 Ml Oral.susp, 2 Tsp Oral Sucralfate (Carafate) 1 Gm/10 Ml Oral.susp, 2 Tsp Oral 2016-12-27 00:00:00 No 2 Twice A Day [facility] Carvedilol 3.125 Mg Tablet, 3.125 Mg Oral Carvedilol 3 .125 Mg Tablet, 3.125 Mg Oral 2016-12-25 00:00:00 No 3.125 Twice A Day [facility] Acetaminophen 325 Mg Tablet, 650 Mg Oral Acetaminophen 325 Mg Tablet, 650 Mg Oral 2016-09-12 00:00:00 No 650 Every 4 Hours as n eeded for Pain [facility] Calcium Carbonate/Vitamin D3 (Calcium + Vitamin D Tablet) 1 Each Tablet, 1 Tab Oral Calcium Carbonate/Vitamin D3 (Calcium + Vitamin D Tablet) 1 Each Tablet, 1 Tab Oral 2016-09-12 00:00:00 No 1 Twice A Day [facility] Juice Plus Fibre , 1 Dose Oral Juice Plus Fibre , 1 Dose Oral 2016-09-12 00:00:00 No 1 Daily [facility] Lactobacillus Combo No.6 (Probiotic Complex) 1 Each Ta blet, 1 Tab Oral Lactobacillus Combo No.6 (Probiotic Complex) 1 Each Tablet, 1 Tab Oral 2016-09-12 00:00:00 No 1 Daily [facility] Lidocaine 5% Patch , 1 Patch Topically Lidocaine 5% Patch , 1 Pa tch Topically 2016-09-12 00:00:00 No 1 Daily [facility] Multivitamin (Chewable Multi Vitamin) 1 Each Tab.chew, 1 Tab Oral Multivitamin (Chewable Multi Vitamin) 1 Each Tab.chew, 1 Tab Oral 2016-09-12 00: 00:00 No 1 Daily [facility] Mylanta Susp , 30 Ml Oral Mylanta Susp , 30 Ml Oral 00:00:00 No 30 Daily as needed for Indigestion [facility] Promethazine Hcl (Promethegan) 12.5 Mg Supp, 25 Supp R ectal Promethazine Hcl (Promethegan) 12.5 Mg Supp, 25 Supp Rectal 2016-09-12 00:00:00 No 25 Every 12 Hours as needed for Nausea [facility] Famotidine (Pepcid) 20 Mg Tablet, 20 Mg Oral Famotidin e (Pepcid) 20 Mg Tablet, 20 Mg Oral 2016-04-26 00:00:00 No 20 Twice A Day [facility] Hydroxyzine Pamoate 25 Mg Capsule, 25 Mg Oral Hydroxyz ine Pamoate 25 Mg Capsule, 25 Mg Oral 2016-04-26 00:00:00 No 25 F our Times Daily as needed for Nausea [facility] Protein Oral Powder , Protein Oral Powder , 2016-04-26 00:00:00 No [facility] Acetaminophen (Tylenol) 500 Mg Tab, 500 Mg Oral Acetam inophen (Tylenol) 500 Mg Tab, 500 Mg Oral 2013-01-15 00:00:00 No 500 Four Times Daily as needed [facility] Ciprofloxacin Hcl (Cipro) 500 Mg Tablet, 500 Mg Oral C iprofloxacin Hcl (Cipro) 500 Mg Tablet, 500 Mg Oral 2013-01-15 00:00:00 No 500 [facility] Meperidine Hcl 50 Mg Tablet, 50 Mg Oral Meperidine Hcl 50 Mg Tablet, 50 Mg Oral 2013-01-15 00:00:00 No 50 Twice A Day as nee ded [facility] Lorazepam 0.5 Mg Tablet, 0.5 Mg Oral Lorazepam 0.5 Mg Tablet, 0. 5 Mg Oral 2013-01-13 00:00:00 No .5 Twice A Day as neede d [facility] Immunizations Ordered Immunization Name Filled Immunization Name Date Status Comments Source Influenza, seasonal, injectable 2018-04-10 00:00:00 Comple nathan [facility] Fluzone High-Dose 0.5 ML Intramuscular Suspension Prefilled Syringe 2017-04-01 16:06:00 Completed [facility] Fluzone High-Dose 0.5 ML Intramuscular Suspension Prefilled Syringe 2016-05-11 15:24:00 Completed [facility] Prevnar 13 Intramuscular Suspension 2015-03-08 00:00:00 Co mpleted [facility] Influenza 2011-04-03 00:00:00 Completed [facility] H1N1 Influenza Inj 2009-06-14 00:00:00 Completed [facility] Pneumo 2007-04-30 00:00:00 Completed [facility] Influenza Unknown Completed [facility] Influenza Unknown Completed [facility] Vital Signs Vital Name Observation Time Observation Value Comments Source BP Systolic 2019-04-10 16:34:00 132 mm[Hg] Location: BANDAR Positi on: Sitting [facility] BP Diastolic 2019-04-10 16:34:00 81 mm[Hg] Location: MARINA; Positi on: Sitting [facility] Height 2019-04-10 16:34:00 62.5 [in_us] [facility] Weight 2019-04-10 16:34:00 164.1 [lb_av] [facility] Body Mass Index Calculated 2019-04-10 16:34:00 29.54 kg/m2 [facility] Temperature 2019-04-10 16:34:00 98.7 [degF] Method: Oral [facility] Respiration Rate 2019-04-10 16:34:00 16 /min [facility] Heart Rate 2019-04-10 16:34:00 78 /min [facility] BP Systolic 2019-02-09 15:41:00 128 mm[Hg] Location: BANDAR Positi on: Sitting [facility] BP Diastolic 2019-02-09 15:41:00 82 mm[Hg] Location: BANDAR Positi on: Sitting [facility] Height 2019-02-09 15:41:00 62.5 [in_us] [facility] Weight 2019-02-09 15:41:00 162.4375 [lb_av] [facility] Body Mass Index Calculated 2019-02-09 15:41:00 29.24 kg/m2 [facility] Temperature 2019-02-09 15:41:00 98.4 [degF] Method: Temporal [facility] Heart Rate 2019-02-09 15:41:00 71 /min Location: L Brachial Artery; [facility] Respiration Rate 2019-02-09 15:41:00 16 /min Quality: Normal [facility] Procedures Procedure Date / Time Performed Performing Clinician Sour e X-ray of chest, single view 2019-09-18 00:00:00 JACOB HERNANDEZ [facility] EGD with biopsy 2019-09-14 00:00:00 YULISA VELASQUEZ [facility] EGD BIOPSY SINGLE/MULTIPLE 2019-06-23 00:00:00 YULISA VELASQUEZ [facility] DILATE ESOPHAGUS 1/MULT PASS 2019-06-23 00:00:00 YULISA VELASQUEZ [facility] US abdomen complete 2019-05-14 00:00:00 YULISA VELASQUEZ [facility] Computed tomography of abdomen and pelvis with contrast 2018 00:00:00 YESSY DAMIÁN [facility] [[facility]] TSH, 3RD GENERATION 2018-12-15 00:00:00 [facility] G[facility] 2006-06-07 00:00[facility]00 [facility] of Colon Surgery 2002-08-08 00:00:00 Uni [facility] History of Gastric Surgery 2002-06-07 00:00:00 [facility] of Hip Surgery [facility] History of Hysterectomy [facility] History of Lower Back Surgery Un [facility] History of Neck Surgery [facility] History of Corneal LASIK Bilateral [facility] Encounters Start Date/Time End Date/Time Encounter Type Admission Type [facility] Care Department Encounter ID Source 2019-09-18 16:45:00 2019-09-22 15:12:00 Discharged Inpatient 1 JACOB HERNANDEZ [facility] [id number] [facility] 2019-09-14 08:47:00 2019-09-14 08:47:00 Registered Surgical Day Care [facility] [id number] [facility] 2019-09-09 08:42:00 2019-09-09 16:25:00 Departed Emergency Room 1 VICKEY MORSE [facility] [id number] [facility] 2019-09-08 05:00:00 2019-09-08 05:00:00 Registered Clinic [facility] [id number] [facility] 2019-06-23 11:48:00 2019-06-23 11:48:00 Registered Surgical Day Care [facility] [id number] [facility] 2019-05-14 09:22:00 2019-05-14 09:22:00 Registered Clinic 3 YULISA VELASQUEZ [facility] [id number] [facility] 2019-04-10 11:30:00 2019-04-10 11:30:00 Appointment; RODRIGUEZISAK CALLOWAY M.D. WALTON, HAROLD, M.D. [facility], [address] [id number] [facility] 2019-02-09 15:15:00 2019-02-09 15:15:00 Appointment; ISAK RODRIGUEZ M.D. WALTON, HAROLD, M.D. [facility], [address] [id number] [facility] 2019-02-05 12:35:00 2019-02-05 12:35:00 Registered Clinic 3 DAMIÁN KRISHNAMURTHY [facility] [id number] [facility] 2019-01-06 15:15:00 2019-01-06 15:15:00 Appointment; ISAK RODRIGUEZ M.D. WALTON, HAROLD, M.D. [facility] UTP [id number] [facility] 2018-12-09 15:30:00 2018-12-09 15:30:00 Appointment; ISAK RODRIGUEZ M.D. WALTON, HAROLD, M.D. [facility] UTP [id number] [facility] 2018-11-04 14:45:00 2018-11-04 14:45:00 Appointment; ISAK RODRIGUEZ M.D. WALTON, HAROLD, M.D. [facility] UTP [id number] [facility] 2018-10-23 15:15:00 2018-10-23 15:15:00 Appointment; ISAK RODRIGUEZ M.D. WALTON, HAROLD, M.D. [facility]TP [id number] [facility] 2018-10-09 15:30:00 2018-10-09 15:30:00 Appointment; ISAK RODRIGUEZ M.D. WALTON, HAROLD, M.D. [facility] UTP [id number] [facility] 2018-10-02 15:00:00 2018-10-02 15:00:00 Appointment; ISAK RODRIGUEZ M.D. WALTON, HAROLD, M.D. [facility] UTP [id number] [facility] 2018-08-25 12:15:00 2018-08-25 12:15:00 Appointment; ARLIN FELIX P.A. SPOONER, JOSEPH, P.A. [facility] UTP [id number] [facility] 2018-07-17 15:15:00 2018-07-17 15:15:00 Appointment; ISAK RODRIGUEZ M.D. WALTON, HAROLD, M.D. [facility] UTP [id number] [facility] 2018-04-15 15:00:00 2018-04-15 15:00:00 Appointment; ISAK RODRIGUEZ M.D. WALTON, HAROLD, M.D. [facility] UTP [id number] [facility] 2018-04-11 11:00:00 2018-04-11 11:00:00 Appointment; Macho Quintana M.D. Quesada, Jorge, M.D. [facility] UTP [id number] [facility] 2018-04-08 14:45:00 2018-04-08 14:45:00 Appointment; ISAK RODRIGUEZ M.D. WALTON, HAROLD, M.D. [facility] UTP [id number] [facility] 2018-03-11 16:05:00 2018-03-18 12:00:00 Discharged Inpatient 1 ISAK RODRIGUEZ [facility] [id number] [facility] 2018-02-13 08:00:00 2018-02-13 08:00:00 Appointment; ANTONIO RODRIGUEZ M.D. JAMALYARIA, FAROKH, M.D. [facility] UTP [id number] [facility] 2018-02-04 10:15:00 2018-02-04 10:15:00 Appointment; Macho Quintana M.D. Quesada, Jorge, M.D. [facility] UTP [id number] [facility] 2018-01-06 14:45:00 2018-01-06 14:45:00 Appointment; ISAK RODRIGUEZ M.D. WALTON, HAROLD, M.D. [facility] UTP [id number] [facility] 2018-01-03 11:00:00 2018-01-03 11:00:00 Appointment; Macho Quintana M.D. Quesada, Jorge, M.D. [facility] UTP [id number] [facility] 2017-12-06 14:15:00 2017-12-06 14:15:00 Appointment; ISAK RODRIGUEZ M.D. WALTON, HAROLD, M.D. [facility] UTP [id number] [facility] 2017-12-04 10:00:00 2017-12-04 10:00:00 Appointment; LANDY RIVERA M.D. DHOBLE, ABHIJEET, M.D. [facility]TP UTP [id number] [facility] 2017-11-28 15:00:00 2017-11-28 15:00:00 Appointment; BAYSHORE-MS, E CHO B[facility]-MS, ECHO UTP UTP [id number] [facility] 2017-11-28 14:00:00 2017-11-28 14:00:00 Appointment; [place]-MS, E CHO [facility]-MS, ECHO UTP UTP [id number] [facility] 2017-11-27 08:30:00 2017-11-27 08:30:00 Appointment; [place]-MS, N UCLEAR [facility]-MS, NUCLEAR UTP UTP [id number] [facility] 2017-11-25 10:20:00 2017-11-25 10:20:00 Appointment; LANDY RIVERA M.D. DHOBLE, ABHIJEET, M.D. UTP UTP [id number] [facility] 2017-11-21 14:45:00 2017-11-21 14:45:00 Appointment; ISAK RODRIGUEZ M.D. WALTON, HAROLD, M.D. [facility], [address] [id number] [facility] 2017-07-31 15:30:00 2017-07-31 15:30:00 Appointment; ISAK RODRIGUEZ M.D. WALTON, HAROLD, M.D. UTP UTP [id number] [facility] 2017-07-18 14:08:00 2017-07-18 14:08:00 Registered Clinic STORMY CROCKER [facility] [id number] [facility] 2017-05-06 14:15:00 2017-05-06 14:15:00 Appointment; DAMIÁN SALDIVAR M.D. CRUMBIE, DAVID, M.D. UTP UTP [id number] [facility] 2017-04-15 14:30:00 2017-04-15 14:30:00 Appointment; DAMIÁN SALDIVAR M.D. CRUMBIE, DAVID, M.D. [facility] [id number] [facility] 2017-04-01 15:00:00 2017-04-01 15:00:00 Appointment; ISAK RODRIGUEZ M.D. WALTON, HAROLD, M.D. [facility] [id number] [facility] 2015-09-21 15:00:00 2015-09-21 15:00:00 Appointment; ISAK RODRIGUEZ M.D. WALTON, HAROLD, M.D. [facility], [address] [id number] [facility] 2013-05-05 09:00:00 2013-05-05 09:00:00 Appointment; RUI RICO NP HOANG, CHRISTINA, NP [facility], [address] [id number] [facility] Results Test Description Test Time Test Comments Results Result Comments Source CT CERVICAL SPINE WO 2020-02-11 16:05:00 [place] [address] Patient Name: MANUELA STRICKLAND MR #: [id number] : 1945 Age/Sex: 74/F Req #: [id number] Adm Physician: Ordered by: JOSE MAYNARD DO Report #: [id number] Location: ER Room/Bed: Procedure: [id number] CT/CT CERVICAL SPINE WO Exam Date: 02/11/20 Exam Time: 1509 REPORT STATUS: Signed History: Trauma, fall Comparison studies: Cervical spine x-ray 02/03/[address] 04/05/2017 Technique: Axial images were obtained through the cervical region. Coronal and sagittal images reconstructed from the axial data. Dose modulation, ite rative reconstruction, and/or weight based adjustment of the mA/kV was utilized to reduce the radiation dose to as low as reasonably achievable. Intravenous contrast: None Findings: Atlantoaxial articulation: The C1 and C2 vertebrae are fused. Alignment: Mild hyperlordotic curvature. No subluxations. Cervicomedullary junction: No abnormalities. The foramen magnum is patent. Soft tissues: No gross acute abnormalities. Vertebrae: Postsurgical changes of prior C4-C7 anterior cervical discectomy and fusion with disc spacer in place at C4-C5, and anterior fixation plate at C4-C5 and at C6-C7. There is solid interbody fusion at C5-C6 and at C6-C7. Minimal lucency present along the C5 vertebral body fixation screws, minimally increased from prior exam. There is otherwise no other evidence of hardware failure. The C1 and C2 vertebrae and C2-C3 facets are fused. No fracture or destructive lytic or blastic lesion. Degenerative changes: Degenerated calcified disc with mild loss of disc height at C2-C3 and C3-C4. Multilevel uncovertebral and facet arthrosis with moderate left and mild right foraminal stenosis at C3-C4 and moderate bilateral foraminal stenosis at C4-C5. Additional findings: Ground glass densities with central annular septal thickening at the right lung apex and mild scarring at the left lung apex. Please refer to dedicated chest CT report from the same date for further characterization of intrathoracic findings. Incidental findings: Nonspecific inflammatory mucosal thickening in the right maxillary sinus. Bone graft along the maxillary sinus alveolar recess for right maxillary molar implant. IMPRESSION: 1. No cervical spine fracture or subluxation. 2. Surgical changes of C4-C7 ACDF. Lucency along the anterior C5 vertebral body fixation screws may indicate hardware loosening. No other evidence of hardware failure. 3. Degenerative changes as described. 4. Right upper lobe ground glass densities, possibly infectious. Please refer to same-day chest CT report for further characterization of intrathoracic findings. Ligament, spinal cord and or vascular abnormalities cannot be excluded on the basis of this examination Signed by: Dr. Damián Stearns M.D. on 02/11/2020 4:19 PM Dictated By: DAMIÁN STEARNS MD [id number] Transcribed By: TATE on 02/11/209 COPY TO: JOSE MAYNARD DO CT BRAIN WO 2020-02-11 16:00:00 [place] [address] Patient Name: MANUELA STRICKLAND MR #: [id number] : 1945 Age/Sex: 74/F Req #: [id number] Adm Physician: Ordered by: JOSE MAYNARD DO Report #: [id number] Location: ER Room/Bed: Procedure: [id number] CT/CT BRAIN WO Exam Date: 02/11/20 Exam Time: 1509 REPORT STATUS: Signed Exam: Head CT without contrast History: Trauma, fall Comparison studies: None Technique: Axial images were obtained from the skull base to the vertex. Coronal and sagittal images reconstructed from the axial data. Dose modulation, iterative reconstruction, and/or weight based adjustment of the mA/kV was utilized to reduce the radiation dose to as low as reasonably achievable. Radiation dose: Total DLP: 1916.56 mGy*cm. Estimated effective dose: DLP x 0.015 Intravenous contrast: None Findings: Exam is suboptimal due to artifacts related to patient motion. In spite of limitations: Scalp: No abnormalities. Bones: No fractures, blastic or lytic lesions. Brain sulci: Mildly prominent but age appropriate. Ventricles: Normal in size and configuration. No hydrocephalus. Extra-axial spaces: No masses, no fluid collection. Parenchyma: New mass, acute hemorrhage or acute or chronic cortical insults. A few hypodensities in the supratentorial white matter are nonspecific but are most compatible with chronic microvascular ischemic changes. Sellar/suprasellar region: No abnormalities. Craniocervical junction: Patent foramen magnum. No Chiari one malformation. Incidental findings: Bilateral intraocular lens replacements. Calcified atherosclerosis in the carotid siphons and left intradural vertebral artery. IMPRESSION: 1. No acute abnormalities. 2. Mild chronic brittany rovascular ischemic changes. Signed by: Dr. Damián Stearns M.D. on 02/11/2020 4:04 PM Dictated By: DAMIÁN STEARNS MD 1604 Transcribed By: TATE on 02/11/20 1604 COPY TO: JOSE MAYNARD DO CT CHEST WO 2020-02-11 16:00:00 [place] [address] Patient Name: MANUELA STRICKLAND MR #: [id number] : 1945 Age/Sex: 74/F Req #: [id number] Adm Physician: Ordered by: JOSE MAYNARD DO Report #: [id number] Location: ER Room/Bed: Procedure: [id number] CT/CT CHEST WO Exam Date: 02/11/20 Exam Time: 1509 REPORT STATUS: Signed CT of the chest, without contrast. History: Fall, shortness of breath. Comparison: Chest radiograph from 09/18/2019.. Technique: Multidetector CT scanning of the chest was performed from the level of the apices to the upper abdomen without contrast. Coronal and sagittal multiplanar reformations were obtained. RADIATION DOSE: Total DLP: 1916.56 mGy*cm Dose modulation, iterative reconstruction, and/or weight based adjustment of the mA/kV was utilized to reduce the radiation dose to as low as reasonably achievable. FINDINGS: The thyroid and remaining visualized structures within the base of the neck demonstrate no significant abnormalities. The thoracic aorta is normal course and caliber. The main pulmonary artery is normal in caliber measuring 2.8 cm in maximal diameter. The heart is not enlarged. No abnormal pericardial fluid is present. Nonspecific normal sized mediastinal lymph nodes are noted. No abnormal axillary, mediastinal, or hilar lymph node enlargement is appreciated by CT size criteria. The trachea and proximal airways are patent. There are extensive patchy groundglass and consolidative opacities present within the right upper lobe. These findings were not present on the p rior chest radiograph from 09/18/2019. Mildly increased groundglass opacities noted within the right lower lobe. Mild left basilar atelectasis/scarring noted. There is no evidence for pneumothorax or significant pleural effusion. There are multiple surgical clips within the upper abdomen likely from prior Whipple procedure. No acute abnormality is identified within the upper abdomen. Partially visualized cervical fusion hardware noted. There is kyphosis and degenerative changes noted of the visualized spine. There is no evidence for acute fracture or destructive process. The extrathoracic soft tissues are unremarkable. IMPRESSION: Patchy ground glass and consolidative opacities identified predominantly involving the right upper lobe and to a lesser extent the right lower lobe. Findings are nonspecific but can be seen in the setting of a multifocal infectious process. Signed by: Dr. Wilmer Ryan MD on 02/11/2020 4:10 PM Dictated By: WILMER RYAN MD 1610 Transcribed By: TATE on 02/11/20 1610 COPY TO: JOSE MAYNARD DO CERVICAL SPINE 4 OR 5 VIEWS 2020-02-03 09:26:00 [place] [address] Patient Name: MANUELA STRICKLAND MR #: [id number] : 1945 Age/Sex: 74/F Req #: [id number] Adm Physician: Ordered by: ISIS VELASQUEZ MD Report #: [id number] Location: [facility] Room/Bed: Procedure: [id number] DX/CERVICAL SPINE 4 OR 5 VIEWS Exam Date: 02/03/20 Exam Time: 0907 REPORT STATUS: Signed EXAM: CERVICAL SPINE 4 OR 5 VIEWS DATE: 02/03/2020 9:07 AM INDICATION: Neck pain COMPARISON: 10/13/2018 FINDINGS: Again identified are stable postsurgical changes from anterior cervical fusion at C4-C5 and C6-C7. Hardware appears in tact and in stable position. Osseous fusion again noted between C5-C7. There is no evidence for acute fracture or dislocation. No focal lytic or blastic abnormalities identified. There are mild multilevel degenerative changes with suspected facet arthropathy, not significantly changed from the prior examination from 10/13/2018. The prevertebral soft tissues are unremarkable. The visualized lung apices are clear. IMPRESSION: Stable post surgical changes from cervical fusion as detailed above. No acute radiographic abnormality identified within the cervical spine. Signed by: Dr. Wilmer Ryan MD on 02/03/2020 9:30 AM Dictated By: WILMER RYAN MD 9 Transcribed By: TATE on 02/03/20929 COPY TO: ISIS VELASQUEZ MD SHOULDER RIGHT COMPLETE 2020-02-03 09:23:00 [place] [address] Patient Name: MANUELA STRICKLAND MR #: [id number] : 1945 Age/Sex: 74/F Req #: [id number] Adm Physician: Ordered by: ISIS VELASQUEZ MD Report #: [id number] Location: [facility] Room/Bed: Procedure: [id number] DX/SHOULDER RIGHT COMPLETE Exam Date: 02/03/20 Exam Time: 906 REPORT STATUS: Signed EXAM: SHOULDER RIGHT COMPLETE DATE: 02/03/2020 9:07 AM INDICATION: Right shoulder pain COMPARISON: None FINDINGS: Internal rotation and external rotation views of the right shoulder obtained. There is no evidence for acute fracture. There is mild inferior positioning of the humeral head in relation to the glenoid which is likely due to positioning. No significant dislocation is appreciated. The glenohumeral joint is otherwise unremarkable. There is mild AC joint arthropathy. No focal lytic or blastic abnormalities identified. The surrounding soft tissues are unremarkable without evidence for radiopaque foreign body. The visualized right hemithorax is clear. IMPRESSION: No acute radiographic abnormality identified within the right shoulder. Signed by: Dr. Wilmer Ryan MD on 02/03/2020 9:25 AM Dictated By: WILMER RYAN MD 4 Transcribed By: TATE on 02/03/20924 COPY TO: ISIS VELASQUEZ MD MRI SPINE LUMBAR WO 2020-01-21 14:44:00 [place] [address] Patient Name: MANUELA STRICKLAND MR #: [id number] : 1945 Age/Sex: 74/F Req #: [id number] Adm Physician: Ordered by: LINK DUMASP-C Report #: [id number] Location: MRI Room/Bed: Procedure: [id number] MRI/MRI SPINE LUMBAR WO Exam Date: Exam Time: REPORT STATUS: Signed Exam: Lumbar spine MRI without IV contrast History: Left leg pain and bilateral foot numbness Comparison studies: Included lumbar spine from abdomen pelvis CT of 02/05/2019. Technique: Sagittal and axial T2 , sagittal T1 and IR, axial spin density oblique. Intravenous contrast: None Findings: Number of lumbar vertebral bodies: 5. Alignment: Normal lumbar lordosis with mild lumbar levocurvature. Soft tissues: No T2 hyperintense territory changes. The common bile duct is mildly dilated similar to prior exam and there are partial imaged postsurgical changes in the abdomen which are incompletely evaluated on this exam. Two small T2 hyperintense lesions in the right kidney are compatible with cysts. Dorsal muscles: Moderate symmetric fatty-replaced atrophy. Lower thoracic cord: Normal in signal and morphology. The tip of t he conus is at T12-L1. Cauda equina: No masses. No arachnoiditis. Vertebrae: No compression fracture or infection. Bones are demineralized with diffuse fatty-replaced marrow changes. Degenerative changes: L1-L2: Mildly degenerated disc. Small broad-based left central disc protrusion does not result in canal stenosis. Patent neural foramina. L2-L3: Moderately degenerated disc with degenerative endplate changes with mild endplate edema. Disc osteophyte complex and facet arthrosis result in foraminal canal stenosis and mild bilateral foraminal stenosis. L3-L4: Mildly degenerated disc. Symmetric disc bulge and mild facet arthrosis result in mild bilateral foraminal stenosis. Patent spinal canal. L4-L5: Mildly degenerated disc. Symmetric disc bulge and bilateral facet arthrosis result in mild bilateral foraminal stenosis. Patent spinal canal. L5-S1: Moderately degenerated disc. Disc osteophyte complex and facet arthrosis result in moderate left and mild right foraminal stenosis Included sacroiliac joints: No joint effusion or marrow edema. IMPRESSION: 1. Moderately degenerated L2-L3 and L5-S1 discs. 2. Mild degenerative endplate edema at L2-L3. 3. No significant canal stenosis. 4. Moderate degenerative foraminal stenosis on the left L5-S1. Signed by: Dr. Damián Stearns M.D. on 01/21/2020 2:55 PM Dictated By: DAMIÁN STEARNS MD [id number] Transcribed By: TATE on 01/21/20 0149 COPY TO: PITERLINK A CABLE TOOL OPERATOR-C Blood Culture 2019-09-21 16:51:00 Test Item Blood Culture (test code = 34171477) NO GROWTH AFTER 72 HOURS [facility] Kin[facility] [id number] 13:43:00* Test Item Value Reference Range Interpretation Comments Creatine Kinase MB (test code = 97251-6) 2.80 0-5.0 [facility]oTroponin [id number] 13:43:00* Test Item Value Reference Range Interpretation Comments Troponin I (test code = SBI0795) 0.018 0-0.300 [facility]oCreat[facility] Fhgnof4828-72-35 13:32:00* Test Item Value Reference Range Interpretation Comments Creatine Kinase (test code = 2157-6) 227 29-168 H [facility]oDifferential Total Cells Counted 2019-09-19 09:10:00* Test Item Value Reference Range Interpretation Comments Differential Total Cells Counted (test code = Differen tial Total Cells Counted) 100 [facility]oNeutrophils % (Manual)2019-09-19 09:10:00 * Test Item Value Reference Range Interpretation Comments Neutrophils % (Manual) (test code = 74684-4) 77 40-74 H [facility]aredoLymphocytes % (Manual)2019-09-19 09:10:00 * Test Item Value Reference Range Interpretation Comments Lymphocytes % (Manual) (test code = 737-7) 14 19-48 L [facility]oMonocytes % (Manual)2019-09-19 09:10:00* Test Item Value Reference Range Interpretation Comments Monocytes % (Manual) (test code = 744-3) 8 3.4-9.0 [facility]osinophils % (Manual)2019-09-19 09:10:00 * Test Item Value Reference Range Interpretation Comments Eosinophils % (Manual) (test code = 714-6) 1 0-7 [facility] Hdvid7163-24-39 06:01:00* Test Item Value Reference Range Interpretation Comments Sodium Level (test code = 2951-2) 135 136-145 L [facility]oPotassium Oyrxv4358-22-19 06:01:00* Test Item Value Reference Range Interpretation Comments Potassium Level (test code = 2823-3) 3.7 3.5-5.1 [facility]oChloride Vzqux1646-24-00 06:01:00* Test Item Value Reference Range Interpretation Comments Chloride Level (test code = 2075-0) 109 98-107 H [facility]oCarbon Dioxide Zrvpu6795-80-85 06:01:00* Test Item Value Reference Range Interpretation Comments Carbon Dioxide Level (test code = 2028-9) 24 22-29 [facility]oAnion Xnh5556-88-40 06:01:00* Test Item Value Reference Range Interpretation Comments Anion Gap (test code = 90119-0) 5.7 8-16 L [facility]oBlood Urea Zfmevfll1052-15-09 06:01:00* Test Item Value Reference Range Interpretation Comments Blood Urea Nitrogen (test code = 3094-0) 11 7-26 [facility]oCreatinine2020-03-14 06:01:00* Test Item Value Reference Range Interpretation Comments Creatinine (test code = 2160-0) 0.76 0.57-1.11 [facility]oBUN/Creatinine Dehvy7640-28-11 06:01:00* Test Item Value Reference Range Interpretation Comments BUN/Creatinine Ratio (test code = 3097-3) 14 6-25 [facility]oEstimat Glomerular Filtration Rate 2019-09-19 06:01:00* Test Item Value Reference Range Interpretation Comments Estimat Glomerular Filtration Rate (test code = 830373734) > 60 >60 Ranges were taken from the National Kidney Disease Education Program and the [facility] [employer] literature.Reference ranges:60 or greater: Yidizc09-77 ( for 3 consecutive months): Chronic kidney disease 15 or less: Kidney failureDoctors Hospital of LaredoGlucose Kifkh0480-43-21 06:01:00* Test Item Value Reference Range Interpretation Comments Glucose Level (test code = OIE4522) 133 74-118 H [facility]oCalcium Fvqpo1009-67-45 06:01:00* Test Item Value Reference Range Interpretation Comments Calcium Level (test code = 56668-7) 8.6 8.4-10.2 [facility]oTotal Oiijmyxql0330-12-60 06:01:00* Test Item Value Reference Range Interpretation Comments Total Bilirubin (test code = 1975-2) 0.3 0.2-1.2 [facility]oAspartate Amino Transf (AST/SGOT) 2019-09-19 06:01:00* Test Item Value Reference Range Interpretation Comments Aspartate Amino Transf (AST/SGOT) (test code = Aspartate Amino Transf (AST/SGOT)) 32 5-34 [facility]oAlanine Aminotransferase (ALT/SGPT) 2019-09-19 06:01:00* Test Item Value Reference Range Interpretation Comments Alanine Aminotransferase (ALT/SGPT) (test code = 1742-6) 29 0-55 [facility]oTotal Nyotmcq7036-86-45 06:01:00* Test Item Value Reference Range Interpretation Comments Total Protein (test code = 2885-2) 5.6 6.5-8.1 L [facility]oAlbumin2020-03-14 06:01:00* Test Item Value Reference Range Interpretation Comments Albumin (test code = 1751-7) 3.0 3.5-5.0 L [facility]oGlobulin2020-03-14 06:01:00* Test Item Value Reference Range Interpretation Comments Globulin (test code = 95521-1) 2.6 2.3-3.5 [facility]oAlbumin/Globulin Znwcf3305-60-41 06:01:00 * Test Item Value Reference Range Interpretation Comments Albumin/Globulin Ratio (test code = 1759-0) 1.2 0.8-2.0 [facility]oAlkaline Vjvjrimecog0800-03-36 06:01:00* Test Item Value Reference Range Interpretation Comments Alkaline Phosphatase (test code = 6768-6) 62 40-150 [facility] LaredoLactic Acid Onfbt5246-94-98 05:56:00* Test Item Value Reference Range Interpretation Comments Lactic Acid Level (test code = Lactic Acid Level) 1.0 0.5- 2.0 [facility]oWhite Blood Nidfr1278-30-90 05:41:00* Test Item Value Reference Range Interpretation Comments White Blood Count (test code = 6690-2) 6.12 4.8-10.8 [facility]aredoRed Blood Ubjpw5766-13-46 05:41:00* Test Item Value Reference Range Interpretation Comments Red Blood Count (test code = 789-8) 3.40 3.6-5.1 L [facility]oHemoglobin2020-03-14 05:41:00* Test Item Value Reference Range Interpretation Comments Hemoglobin (test code = 81545-4) 10.2 12.0-16.0 L [facility]oHematocrit2020-03-14 05:41:00* Test Item Value Reference Range Interpretation Comments Hematocrit (test code = 4544-3) 32.0 34.2-44.1 L [facility]aredoMean Corpuscular Andcma8095-31-79 05:41:00* Test Item Value Reference Range Interpretation Comments Mean Corpuscular Volume (test code = 787-2) 94.1 81-99 [facility]oMean Corpuscular Smgxsabjbw1390-46-19 05:41:00* Test Item Value Reference Range Interpretation Comments Mean Corpuscular Hemoglobin (test code = 785-6) 30.0 28-32 [facility]oMean Corpuscular Hemoglobin Concent 2019-09-19 05:41:00* Test Item Value Reference Range Interpretation Comments Mean Corpuscular Hemoglobin Concent (test code = 786-4) 31.9 31-35 [facility]oRed Cell Distribution Forur0119-20-86 05:41:00* Test Item Value Reference Range Interpretation Comments Red Cell Distribution Width (test code = 55118-0) 13.1 11.7 -14.4 [facility]aredoPlatelet Jvxcw1829-94-07 05:41:00* Test Item Value Reference Range Interpretation Comments Platelet Count (test code = 777-3) 94 140-360 L [facility]oNeutrophils (%) (Auto)2019-09-19 05:41:00 * Test Item Value Reference Range Interpretation Comments Neutrophils (%) (Auto) (test code = 36782-4) 74.9 38.7-80.0 [facility]aredoLymphocytes (%) (Auto)2019-09-19 05:41:00 * Test Item Value Reference Range Interpretation Comments Lymphocytes (%) (Auto) (test code = 736-9) 14.5 18.0-39.1 L [facility]oMonocytes (%) (Auto)2019-09-19 05:41:00* Test Item Value Reference Range Interpretation Comments Monocytes (%) (Auto) (test code = 5905-5) 10.1 4.4-11.3 [facility]oEosinophils (%) (Auto)2019-09-19 05:41:00 * Test Item Value Reference Range Interpretation Comments Eosinophils (%) (Auto) (test code = 713-8) 0.0 0.0-6.0 [facility]oBasophils (%) (Auto)2019-09-19 05:41:00* Test Item Value Reference Range Interpretation Comments Basophils (%) (Auto) (test code = 706-2) 0.2 0.0-1.0 [facility]aredoIM GRANULOCYTES %2019-09-19 05:41:00* Test Item Value Reference Range Interpretation Comments IM GRANULOCYTES % (test code = IM GRANULOCYTES %) 0.3 0.0- 1.0 [facility]oNeutrophils # (Auto)2019-09-19 05:41:00* Test Item Value Reference Range Interpretation Comments Neutrophils # (Auto) (test code = 751-8) 4.6 2.1-6.9 [facility]oLymphocytes # (Auto)2019-09-19 05:41:00* Test Item Value Reference Range Interpretation Comments Lymphocytes # (Auto) (test code = 41820-4) 0.9 1.0-3.2 L [facility]oMonocytes # (Auto)2019-09-19 05:41:00* Test Item Value Reference Range Interpretation Comments Monocytes # (Auto) (test code = 742-7) 0.6 0.2-0.8 [facility]oEosinophils # (Auto)2019-09-19 05:41:00* Test Item Value Reference Range Interpretation Comments Eosinophils # (Auto) (test code = 711-2) 0.0 0.0-0.4 [facility]oBasophils # (Auto)2019-09-19 05:41:00* Test Item Value Reference Range Interpretation Comments Basophils # (Auto) (test code = 704-7) 0.0 0.0-0.1 [facility]aredoAbsolute Immature Granulocyte (auto 2019-09-19 05:41:00* Test Item Value Reference Range Interpretation Comments Absolute Immature Granulocyte (auto (jennifer t code = Absolute Immature Granulocyte (auto) 0.02 0-0.1 [facility]oUrine EDA3420-60-64 17:35:00* Test Item Value Reference Range Interpretation Comments Urine WBC (test code = 5821-4) NONE 0-5 [facility]oUrine IVH0056-44-57 17:35:00* Test Item Value Reference Range Interpretation Comments Urine RBC (test code = 74606-1) NONE 0-5 [facility]oUrine Acskazbi9780-73-22 17:35:00* Test Item Value Reference Range Interpretation Comments Urine Bacteria (test code = 03157-7) RARE NONE [facility]oUrine Epithelial Vriip7219-51-52 17:35:00 * Test Item Value Reference Range Interpretation Comments Urine Epithelial Cells (test code = 05337-8) RARE NONE [facility]oInfluenza Virus Types A,B Antigen 2019-09-18 17:17:00* Test Item Value Reference Range Interpretation Comments Influenza Virus Types A,B Antigen (test code = 05434-1) NEGATIVE NEGATIVE [facility]oUrine Edroi2277-47-21 17:08:00* Test Item Value Reference Range Interpretation Comments Urine Color (test code = 5778-6) YELLOW YELLOW [facility]oUrine Woomkut6797-69-44 17:08:00* Test Item Value Reference Range Interpretation Comments Urine Clarity (test code = 91282-5) SL CLOUDY CLEAR [facility]oUrine Specific Hditmxz9909-54-60 17:08:00 * Test Item Value Reference Range Interpretation Comments Urine Specific [place] (test code = 5811-5) 1.025 1.010-1.02 5 [facility]oUrine rL8886-40-31 17:08:00* Test Item Value Reference Range Interpretation Comments Urine pH (test code = 39109-6) 5.5 5-7 [facility] Leukocyte Xoairtih2009-68-13 17:08:00* Test Item Value Reference Range Interpretation Comments Urine Leukocyte Esterase (test code = 5799-2) NEGATIVE NEGATIVE [facility] Pixamcz0295-31-55 17:08:00* Test Item Value Reference Range Interpretation Comments Urine Nitrite (test code = 24004-9) NEGATIVE NEGATIVE [facility] Tbezzbe2912-89-08 17:08:00* Test Item Value Reference Range Interpretation Comments Urine Protein (test code = 5804-0) NEGATIVE NEGATIVE [facility] Glucose (UA)2019-09-18 17:08:00* Test Item Value Reference Range Interpretation Comments Urine Glucose (UA) (test code = 2349-9) NEGATIVE NEGATIVE [facility] Snalhou3323-05-30 17:08:00* Test Item Value Reference Range Interpretation Comments Urine Ketones (test code = 75437-5) NEGATIVE NEGATIVE [facility] Hnjbvxlfstwf9835-44-23 17:08:00* Test Item Value Reference Range Interpretation Comments Urine Urobilinogen (test code = 41911-6) 0.2 0.2-1 [facility]oUrine Mjkqxyljl8357-73-04 17:08:00* Test Item Value Reference Range Interpretation Comments Urine Bilirubin (test code = 1978-6) NEGATIVE NEGATIVE [facility]oUrine Iwwqe3307-04-46 17:08:00* Test Item Value Reference Range Interpretation Comments Urine Blood (test code = 28618-6) NEGATIVE NEGATIVE [facility]2019-09-18 17:06:00 [facility] [address] [place] [address] Patient Name: MANUELA STRICKLAND MR #: [id number] : 1945 Age/Sex: 74/F Req #: [id number] Adm Physician: Ordered by: JACOB HERNANDEZ DO Report #: [id number] Location: ER Room/Bed: Procedure: [id number] DX /CHEST SINGLE (NOT PORTABLE) Exam Date: 09/18/19 Exa m Time: 1650 REPORT STATUS: Signed EXAMINATION: CHEST SINGLE (NOT PORTABLE) INDICATION: Flulike sympto ms, cough, pneumonia COMPARISON: Chest are graft of 09/09/2019 FIND INGS: LINES/TUBES:None LUNGS:The lungs are well-inflated. No focal con solidation or pulmonary edema. PLEURA:No pleural effusion or pneumothorax. MEDIASTINUM:The cardiomediastinal silhouette appears normal in size and sha pe. BONES/SOFT TISSUES:Cervical spine fusion hardware. ABDOMEN:No free air under the diaphragm. IMPRESSION: No focal pneumonia or pulmonary ed kathrin. Signed by: Nadege Ford MD on 09/18/2019 5:08 PM Dictated By: AUSTEN FORD MD 07 Transcrib ed By: TATE on 09/18/191707 COPY TO: JACOB HERNANDEZ DO Group A Streptococcus Kevway8852-13-40 17:04:00* Test Item Value Reference Range Interpretation Comments Group A Streptococcus Screen (test code = 39965-5) NEGATIVE NEG ATIVE [facility]oCreatine Kinase XB8586-91-05 15:34:00* Test Item Value Reference Range Interpretation Comments Creatine Kinase MB (test code = 51914-0) 2.40 0-5.0 [facility]oTroponin D4236-19-08 15:34:00* Test Item Value Reference Range Interpretation Comments Troponin I (test code = RFS2317) 0.041 0-0.300 [facility]oCreatine Uzkvjn2602-00-92 15:33:00* Test Item Value Reference Range Interpretation Comments Creatine Kinase (test code = 2157-6) 48 29-168 [facility] Yncdr5122-30-39 09:47:00* Test Item Value Reference Range Interpretation Comments Sodium Level (test code = 2951-2) 139 136-145 [facility]oPotassium Zzine3566-89-15 09:47:00* Test Item Value Reference Range Interpretation Comments Potassium Level (test code = 2823-3) 4.2 3.5-5.1 [facility]oChloride Zuifg6567-26-54 09:47:00* Test Item Value Reference Range Interpretation Comments Chloride Level (test code = 2075-0) 104 98-107 [facility]aredoCarbon Dioxide Krvoy5151-29-37 09:47:00* Test Item Value Reference Range Interpretation Comments Carbon Dioxide Level (test code = 2028-9) 26 22-29 [facility]aredoAnion Mek4612-47-37 09:47:00* Test Item Value Reference Range Interpretation Comments Anion Gap (test code = 78808-6) 13.2 8-16 [facility]oBlood Urea Tzulpkpm6161-44-24 09:47:00* Test Item Value Reference Range Interpretation Comments Blood Urea Nitrogen (test code = 3094-0) 23 7-26 [facility]oCreatinine2020-03-04 09:47:00* Test Item Value Reference Range Interpretation Comments Creatinine (test code = 2160-0) 1.01 0.57-1.11 [facility]oBUN/Creatinine Ccjnt6863-98-68 09:47:00* Test Item Value Reference Range Interpretation Comments BUN/Creatinine Ratio (test code = 3097-3) 23 6-25 [facility]aredoEstimat Glomerular Filtration Rate 2019-09-09 09:47:00* Test Item Value Reference Range Interpretation Comments Estimat Glomerular Filtration Rate (test code = 835322669) 54 >60 L Ranges were taken from the National Kidney Disease Education Program and the [facility] Kidney Foundation literature.Reference ranges:60 or greater: Cmrhdg80-87 ( for 3 consecutive months): Chronic kidney disease 15 or less: Kidney failureDoctors Hospital of LaredoGlucose Jvnfc7918-52-44 09:47:00* Test Item Value Reference Range Interpretation Comments Glucose Level (test code = RLI1978) 108 74-118 [facility]oCalcium Wjzbr0397-62-27 09:47:00* Test Item Value Reference Range Interpretation Comments Calcium Level (test code = 60338-0) 9.1 8.4-10.2 [facility]oMagnesium Axgpc5700-71-55 09:47:00* Test Item Value Reference Range Interpretation Comments Magnesium Level (test code = 68958-9) 2.0 1.3-2.1 [facility]oTotal Bpgnlcuuj9128-52-11 09:47:00* Test Item Value Reference Range Interpretation Comments Total Bilirubin (test code = 1975-2) 0.5 0.2-1.2 [facility] LaredoAspartate Amino Transf (AST/SGOT) 2019-09-09 09:47:00* Test Item Value Reference Range Interpretation Comments Aspartate Amino Transf (AST/SGOT) (test code = Aspartate Amino Transf (AST/SGOT)) 35 5-34 H [facility] LaredoAlanine Aminotransferase (ALT/SGPT) 2019-09-09 09:47:00* Test Item Value Reference Range Interpretation Comments Alanine Aminotransferase (ALT/SGPT) (test code = 1742-6) 30 0-55 [facility]oTotal Fanzosn3102-70-44 09:47:00* Test Item Value Reference Range Interpretation Comments Total Protein (test code = 2885-2) 6.7 6.5-8.1 [facility]oAlbumin2020-03-04 09:47:00* Test Item Value Reference Range Interpretation Comments Albumin (test code = 1751-7) 4.0 3.5-5.0 [facility]oGlobulin2020-03-04 09:47:00* Test Item Value Reference Range Interpretation Comments Globulin (test code = 46401-4) 2.7 2.3-3.5 [facility]oAlbumin/Globulin Zcjzr6812-20-78 09:47:00 * Test Item Value Reference Range Interpretation Comments Albumin/Globulin Ratio (test code = 1759-0) 1.5 0.8-2.0 [facility]oAlkaline Mlxibaocbfj7354-36-73 09:47:00* Test Item Value Reference Range Interpretation Comments Alkaline Phosphatase (test code = 6768-6) 74 40-150 [facility] LaredoB-Type Natriuretic Pnrctkh5524-77-19 09:47:00* Test Item Value Reference Range Interpretation Comments B-Type Natriuretic Peptide (test code = 24368-8) 36.0 0-100 [facility] LaredoLipase2020-03-04 09:47:00* Test Item Value Reference Range Interpretation Comments Lipase (test code = 3040-3) [facility]oMagnesium Oblov1626-29-46 09:47:00* Test Item Value Reference Range Interpretation Comments Magnesium Level (test code = 84776-9) 2.0 1.3-2.1 [facility] LaredoB-Type Natriuretic Otphgag8016-05-79 09:47:00* Test Item Value Reference Range Interpretation Comments B-Type Natriuretic Peptide (test code = 59140-4) 36.0 0-100 [facility] LaredoLipase2020-03-04 09:47:00* Test Item Value Reference Range Interpretation Comments Lipase (test code = 3040-3) [facility] LaredoProthrombin Gecg6334-11-09 09:35:00* Test Item Value Reference Range Interpretation Comments Prothrombin Time (test code = 5902-2) 12.7 11.9-14.5 [facility] LaredoProthromb Time International Ratio 2019-09-09 09:35:00* Test Item Value Reference Range Interpretation Comments Prothromb Time International Ratio (test code = 6301-6) 0.90 Oral Anticoagulant Therapy INR Values:1. Low Intensity Therapy 1.5 - 2.02 . Moderate Intensity Therapy 2.0 - 3.03. High Intensity Therapy(1) 2.5 - 3. 54. High Intensity Therapy(2) 3.0 - 4.05. Panic Value INR > 5.0 [facility] LaredoActivated Partial Thromboplast Time 2019-09-09 09:35:00* Test Item Value Reference Range Interpretation Comments Activated Partial Thromboplast Time (test code = 03295-8) 26.4 23.8-35.5 [facility]aredoProthrombin Tkul9917-18-63 09:35:00* Test Item Value Reference Range Interpretation Comments Prothrombin Time (test code = 5902-2) 12.7 11.9-14.5 [facility] LaredoProthromb Time International Ratio 2019-09-09 09:35:00* Test Item Value Reference Range Interpretation Comments Prothromb Time International Ratio (test code = 6301-6) 0.90 Oral Anticoagulant Therapy INR Values:1. Low Intensity Therapy 1.5 - 2.02 . Moderate Intensity Therapy 2.0 - 3.03. High Intensity Therapy(1) 2.5 - 3. 54. High Intensity Therapy(2) 3.0 - 4.05. Panic Value INR > 5.0 [facility] LaredoActivated Partial Thromboplast Time 2019-09-09 09:35:00* Test Item Value Reference Range Interpretation Comments Activated Partial Thromboplast Time (test code = 55471-9) 26.4 23.8-35.5 [facility]aredoCHEST SINGLE (PORTABLE)2019-09-09 09:25:00 [place] [address] Patient Name: MANUELA STRICKLAND MR #: [id number] : 1945 Age/Sex: 74/F Req #: [id number] Adm Physician: Ordered by: VICKEY MORSE MD Report #: [id number] Location: ER Room/Bed: Procedure: [id number] D X/CHEST SINGLE (PORTABLE) Exam Date: 09/09/19 Exam T dereck: 899 REPORT STATUS: Signed EXAMINATION: CHEST SINGLE (PORTABLE) INDICATION: Chest pain ELKIN RISON: Chest radiograph 03/09/2018 FINDINGS: LINES/TUBES:None LUNGS:The lungs are well-inflated. No focal consolidation or pulmonary edema. PLEURA:No pleural effusion or pneumothorax. MEDIASTINUM:The cardiomedias tinal silhouette appears normal in size and shape. BONES/SOFT TISSUES:No ac [place] osseous injury. Apparent ill-defined lytic lesion of the left proximal hum erus. Cervical spine fusion hardware. ABDOMEN:No free air under the diaphr agm. IMPRESSION: No focal pneumonia or pulmonary edema. Apparent ill-defined lytic lesion of the left proximal humerus. If the patient has sym ptoms in this area, recommend further evaluation with dedicated left humerus r adiographs. Signed by: Nadege Ford MD on 09/09/2019 9:27 AM Dictated B y: NADEGE FORD MD 6 Hernandez scribed By: TATE on 09/09/19926 COPY TO: VICKEY MORSE MD White Blood Gypzn1022-71-33 09:16:00* Test Item Value Reference Range Interpretation Comments White Blood Count (test code = 6690-2) 5.12 4.8-10.8 [facility] Tbjjy6945-46-48 09:16:00* Test Item Value Reference Range Interpretation Comments Red Blood Count (test code = 789-8) 4.12 3.6-5.1 [facility]oglobin2020-03-04 09:16:00* Test Item Value Reference Range Interpretation Comments Hemoglobin (test code = 18635-8) 12.4 12.0-16.0 [facility]Hematocrit2020-03-04 09:16:00* Test Item Value Reference Range Interpretation Comments Hematocrit (test code = 4544-3) 38.5 34.2-44.1 [facility]oMean Corpuscular Swyzur5754-85-12 09:16:00* Test Item Value Reference Range Interpretation Comments Mean Corpuscular Volume (test code = 787-2) 93.4 81-99 [facility] Corpuscular Laixikcflu2021-01-00 09:16:00* Test Item Value Reference Range Interpretation Comments Mean Corpuscular Hemoglobin (test code = 785-6) 30.1 28-32 [facility] Corpuscular Hemoglobin Concent 2019-09-09 09:16:00* Test Item Value Reference Range Interpretation Comments Mean Corpuscular Hemoglobin Concent (test code = 786-4) 32.2 31-35 [facility]oRed Cell Distribution Hocsm9266-39-24 09:16:00* Test Item Value Reference Range Interpretation Comments Red Cell Distribution Width (test code = 98072-1) 12.9 11.7 -14.4 [facility]oPlatelet Hqcrd9082-97-27 09:16:00* Test Item Value Reference Range Interpretation Comments Platelet Count (test code = 777-3) 169 140-360 [facility]oNeutrophils (%) (Auto)2019-09-09 09:16:00 * Test Item Value Reference Range Interpretation Comments Neutrophils (%) (Auto) (test code = 46545-7) 51.3 38.7-80.0 [facility]ymphocytes (%) (Auto)2019-09-09 09:16:00 * Test Item Value Reference Range Interpretation Comments Lymphocytes (%) (Auto) (test code = 736-9) 37.5 18.0-39.1 [facility] (%) (Auto)2019-09-09 09:16:00* Test Item Value Reference Range Interpretation Comments Monocytes (%) (Auto) (test code = 5905-5) 9.2 4.4-11.3 [facility]osinophils (%) (Auto)2019-09-09 09:16:00 * Test Item Value Reference Range Interpretation Comments Eosinophils (%) (Auto) (test code = 713-8) 1.4 0.0-6.0 [facility]ophils (%) (Auto)2019-09-09 09:16:00* Test Item Value Reference Range Interpretation Comments Basophils (%) (Auto) (test code = 706-2) 0.4 0.0-1.0 [facility]oIM GRANULOCYTES %2019-09-09 09:16:00* Test Item Value Reference Range Interpretation Comments IM GRANULOCYTES % (test code = IM GRANULOCYTES %) 0.2 0.0- 1.0 [facility]oNeutrophils # (Auto)2019-09-09 09:16:00* Test Item Value Reference Range Interpretation Comments Neutrophils # (Auto) (test code = 751-8) 2.6 2.1-6.9 [facility]oLymphocytes # (Auto)2019-09-09 09:16:00* Test Item Value Reference Range Interpretation Comments Lymphocytes # (Auto) (test code = 31617-0) 1.9 1.0-3.2 [facility]ocytes # (Auto)2019-09-09 09:16:00* Test Item Value Reference Range Interpretation Comments Monocytes # (Auto) (test code = 742-7) 0.5 0.2-0.8 [facility]osinophils # (Auto)2019-09-09 09:16:00* Test Item Value Reference Range Interpretation Comments Eosinophils # (Auto) (test code = 711-2) 0.1 0.0-0.4 [facility]Basophils # (Auto)2019-09-09 09:16:00* Test Item Value Reference Range Interpretation Comments Basophils # (Auto) (test code = 704-7) 0.0 0.0-0.1 [facility]oAbsolute Immature Granulocyte (auto 2019-09-09 09:16:00* Test Item Value Reference Range Interpretation Comments Absolute Immature Granulocyte (auto (jennifer t code = Absolute Immature Granulocyte (auto) 0.01 0-0.1 [facility]oUS A[facility]EN YBKWLOVJ1430-44-27 10:38:00 [facility] [address] [address] Patient Name: MANUELA STRICKLAND MR #: [id number] : 1944 Age/Sex: 74/F Req #: [id number] Adm Physician: Ordered by: YULISA VELASQUEZ MD Report #: [id number] Location: Room/Bed: Procedure: [id number] US/US ABDOMEN COMPLETE Exam Date: 05/14/19 Exam Time : 1009 REPORT STATUS: Signed Abdominal ultrasound. History: Left upper quadrant pain. Comparison : CT 02/05/2019. Discussion: Transverse and longitudinal images of the abdome n were obtained demonstrating a liver of normal size and echogenicity measurin g 13.5 cm in length. The portal vein is patent with hepatopetal flow and is w ithin normal limits measuring 8 mm in diameter. The biliary t ree is within normal limits with the common bile duct measuring 8 mm in diamet er. The gallbladder is absent. The kidneys are small but normal in echogenicity bilaterally without evidence of hydronephrosis, stones, or mas s. The right kidney measures 8.0 cm and the left kidney measures 7.7 cm in leandra gth. The spleen is normal in size and appearance measuring 11.2 cm in arthur th. The pancreas, aorta, and IVC were obscured by overlying bowel gas. There is no evidence of free fluid. IMPRESSION: 1. Status post cholecy stectomy. 2. Small kidneys bilaterally. 3. Pancreas, aorta, and IVC are not visible. Otherwise unremarkable exam. Signed by: Jacob Winslow on 05/14/2019 10:40 AM Dictated By: JACOB WINSLOW MD 1040 Transcribed By: TATE on 05/14/19 1040 COPY TO: YULISA VELASQUEZ MD CT ABDOMEN/PELVIS [id number] 14:25:00 [place] [address] Patient Name: MANUELA STRICKLAND MR #: [id number] : 1945 Age/Sex: 73/F Req #: [id number] Adm Physician: Ordered by: DAMIÁN KRISHNAMURTHY MD Report #: [id number] Location: CT Room/Bed: Procedure: [id number] CT /CT ABDOMEN/PELVIS W Exam Date: 02/05/19 Exam Time: 1345 REPORT STATUS: Signed EXAM: CT Abdomen and Pelvis WITH intravenous contrast INDICATION: Abdominal wa ll infection COMPARISON: CT abdomen pelvis of 03/13/2018 TECHNIQUE: Abdo men and pelvis were scanned utilizing a multidetector helical scanner from the lung base to the pubic symphysis after administration of IV contrast. Coronal and sagittal reformations were obtained. Routine protocol was performed. Scan was performed when during portal venous phase. IV CONTRAST: 100mL of Isovue 370 ORAL CONTRAST: Water COMPLICATIONS: None RADIATION DOSE: Total DLP: 411.8 mGy*cm Dose modulation, iterative recon struction, and/or weight based adjustment of the mA/kV was utilized to reduce the radiation dose to as low as reasonably achievable. FINDINGS: LOWER THORAX: No consolidation at the lung bases. The heart is not enlarged. No per icardial effusion. HEPATOBILIARY: Diffuse hepatic parenchymal hypoattenuati on consistent with hepatic steatosis. No focal liver lesion. Unchanged biliary ductal dilatation compared to 03/13/2018. Apparent postoperative changes of Whi pple procedure with cholecystectomy and hepaticojejunostomy. SPLEEN: No s plenomegaly. 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 The pancreas i s generally atrophic. Pancreatic head is absent. ADRENALS: No adrenal nod ules. KIDNEYS/URETERS: No hydronephrosis, renal calculi, or solid mass lesion. The left kidney appears somewhat atrophic, unchanged from multiple prior CTs. PELVIC ORGANS/BLADDER: Status post hysterectomy. Phleboliths in the pelvis. PERITONEUM / RETROPERITONEUM: No free air or fluid. LYMPH NODES: No lympha denopathy. VESSELS: Scattered atherosclerotic calcifications of the nonaneurys mal abdominal aorta and major branches. GI TRACT: Postoperative changes o f gastrectomy and multiple intra-abdominal anastomoses as before. No abnormal bowel wall thickening. No bowel obstruction. BONES AND SOFT TISSUES: No acu te osseous injury. Again seen are post surgical changes of the anterior abdomi nal wall with anterior abdominal mesh repair. No evidence of subcutaneous flui d collection to suggest drainable abscess. Mild anterior abdominal wall skin t hickening. Mild diffuse muscular atrophy. IMPRESSION: Unchanged biliary ductal dilatation, which could be expected in the postoperative state. An terior abdominal mesh repair with no evidence of subcutaneous abscess. Exte nsive postoperative abdominal findings with no evidence of bowel obstruction. Signed by: Nadege Ford MD on 02/05/2019 2:37 PM Dictated By: NADEGE Anne MD 1437 Transcribed By: TATE on 02/05/19 1437 COPY TO: DAMIÁN KRISHNAMURTHY MD [[facility]] TSH, 3RD GENERATION W/REFLEX TO [id number] 10:06:00* Test Item Value Reference Range Interpretation Comments TSH, 3RD GENERATION W/REFLEX TO FT4 (jennifer t code = TSH, 3RD GENERATION W/REFLEX TO FT4) 2.77 {MIU/L} 0.40-4.50 N [facility] CERVICAL AP LAT FLEX [id number] 18:28:00 [facility] [address] [place] [address] Patient Name: MANUELA STRICKLAND MR #: [id number] : 1944 Age/Sex: 73/F Req #: [id number] Adm Physician: Ordered by: STORMY LITTLE MD Report #: [id number] Location: [facility] Room/Bed: Procedure: [id number] DX/SPINE CERVICAL AP LAT FLEX EXT Exam Date: 10/13/18 Exam Time: 1253 REPORT STATUS: S igned EXAMINATION: SPINE CERVICAL AP LAT FLEX EXT INDICATION: Cervi asia disc herniation. COMPARISON: CT cervical spine 04/05/2017. FI NDINGS: C1 through the mid aspect of C6 is visualized. The lower aspect of C6 and C7 are obscured by the overlying shoulders. There has been anterior c ervical fusion with plate and screw construct extending from the C4-C5 vertebr al bodies. There is an associated intervertebral spacer. There is a partiall y seen anterior plate and screw construct spanning C6-C7. The hardware appears intact. There is osseous fusion involving the C5-C7 vertebral bodies. Ther e is no evidence of acute fracture. There is minimal anterolisthesis of C3 on C4 and minimal retrolisthesis of C4 on C5. No change in alignment on flexion a nd extension views. The prevertebral soft tissues are unremarkable. Mild multilevel degenerative disc and facet degenerative changes. IMPRESSION: Limited evaluation due to the lower aspect of C6 and C7 obscured by overlying shoulders. If clinically indicated, cervical spine CT may be considered for further evaluation. Postsurgical changes status post cervical fusion as ab ove. No change in alignment on flexion and extension views. Signed by: Bree Sanches MD on 10/13/2018 6:37 PM Dictated By: EMANUEL SANCHES MD Electro nically Signed By: EMANUEL SANCHES MD on 10/13/181836 Transcribed By: TATE on 1836 COPY TO: STORMY LITTLE MD Sodium Aeogp7948-44-77 05:26:00* Test Item Value Reference Range Interpretation Comments Sodium Level (test code = 2951-2) 140 136-145 [facility]oPotassium Saqnq6522-18-73 05:26:00* Test Item Value Reference Range Interpretation Comments Potassium Level (test code = 2823-3) 3.7 3.5-5.1 [facility]oChloride Fkqhj9047-30-53 05:26:00* Test Item Value Reference Range Interpretation Comments Chloride Level (test code = 2075-0) 110 98-107 H [facility]aredoCarbon Dioxide Piuux3983-81-21 05:26:00* Test Item Value Reference Range Interpretation Comments Carbon Dioxide Level (test code = 2028-9) 22 22-29 [facility]aredoAnion Oix0016-93-16 05:26:00* Test Item Value Reference Range Interpretation Comments Anion Gap (test code = 13908-5) 11.7 8-16 [facility]oBlood Urea Uielygqj2703-30-08 05:26:00* Test Item Value Reference Range Interpretation Comments Blood Urea Nitrogen (test code = 3094-0) 11 7-26 [facility]oCreatinine2018-09-09 05:26:00* Test Item Value Reference Range Interpretation Comments Creatinine (test code = 2160-0) 0.75 0.57-1.11 [facility]oBUN/Creatinine Ytjzj9540-22-59 05:26:00* Test Item Value Reference Range Interpretation Comments BUN/Creatinine Ratio (test code = 3097-3) 15 6-25 [facility] LaredoEstimat Glomerular Filtration Rate 2018-03-16 05:26:00* Test Item Value Reference Range Interpretation Comments Estimat Glomerular Filtration Rate (test code = 10043-5) 60- >60 Ranges were taken from the National Kidney Disease Education Program and the [facility] Kidney Foundation literature.Reference ranges:60 or greater: Hwijtn13-84 ( for 3 consecutive months): Chronic kidney disease 15 or less: Kidney failureDoctors Hospital of LaredoGlucose Zyqmj4131-45-75 05:26:00* Test Item Value Reference Range Interpretation Comments Glucose Level (test code = KBE9221) 82 74-118 [facility]aredoCalcium Seuwj6394-73-21 05:26:00* Test Item Value Reference Range Interpretation Comments Calcium Level (test code = 58259-8) 8.7 8.4-10.2 [facility]oWhite Blood Kqgaf0339-86-04 05:08:00* Test Item Value Reference Range Interpretation Comments White Blood Count (test code = 6690-2) 3.01 4.8-10.8 L [facility]aredoRed Blood Hljkn9664-15-23 05:08:00* Test Item Value Reference Range Interpretation Comments Red Blood Count (test code = 789-8) 3.64 3.6-5.1 [facility]aredoHemoglobin2018-09-09 05:08:00* Test Item Value Reference Range Interpretation Comments Hemoglobin (test code = 72887-9) 10.4 12.0-16.0 L [facility] LaredoHematocrit2018-09-09 05:08:00* Test Item Value Reference Range Interpretation Comments Hematocrit (test code = 4544-3) 32.6 34.2-44.1 L [facility] LaredoMean Corpuscular Zhujau2552-54-38 05:08:00* Test Item Value Reference Range Interpretation Comments Mean Corpuscular Volume (test code = 787-2) 89.6 81-99 [facility]oMean Corpuscular Gvrfbtgrdu6496-13-38 05:08:00* Test Item Value Reference Range Interpretation Comments Mean Corpuscular Hemoglobin (test code = 785-6) 28.6 28-32 [facility]oMean Corpuscular Hemoglobin Concent 2018-03-16 05:08:00* Test Item Value Reference Range Interpretation Comments Mean Corpuscular Hemoglobin Concent (test code = 786-4) 31.9 31-35 [facility]aredoRed Cell Distribution Ihbov1121-05-63 05:08:00* Test Item Value Reference Range Interpretation Comments Red Cell Distribution Width (test code = 14120-7) 15.5 11.7 -14.4 H [facility] LaredoPlatelet Cztpr7735-83-18 05:08:00* Test Item Value Reference Range Interpretation Comments Platelet Count (test code = 777-3) 122 140-360 L [facility]aredoNeutrophils (%) (Auto)2018-03-16 05:08:00 * Test Item Value Reference Range Interpretation Comments Neutrophils (%) (Auto) (test code = 36227-3) 43.8 38.7-80.0 [facility] LaredoLymphocytes (%) (Auto)2018-03-16 05:08:00 * Test Item Value Reference Range Interpretation Comments Lymphocytes (%) (Auto) (test code = 736-9) 38.9 18.0-39.1 [facility]oMonocytes (%) (Auto)2018-03-16 05:08:00* Test Item Value Reference Range Interpretation Comments Monocytes (%) (Auto) (test code = 5905-5) 14.0 4.4-11.3 H [facility]oEosinophils (%) (Auto)2018-03-16 05:08:00 * Test Item Value Reference Range Interpretation Comments Eosinophils (%) (Auto) (test code = 713-8) 2.3 0.0-6.0 [facility]oBasophils (%) (Auto)2018-03-16 05:08:00* Test Item Value Reference Range Interpretation Comments Basophils (%) (Auto) (test code = 706-2) 0.7 0.0-1.0 [facility]aredoIM GRANULOCYTES %2018-03-16 05:08:00* Test Item Value Reference Range Interpretation Comments IM GRANULOCYTES % (test code = IM GRANULOCYTES %) 0.3 0.0- 1.0 [facility]aredoNeutrophils # (Auto)2018-03-16 05:08:00* Test Item Value Reference Range Interpretation Comments Neutrophils # (Auto) (test code = 751-8) 1.3 2.1-6.9 L [facility] LaredoLymphocytes # (Auto)2018-03-16 05:08:00* Test Item Value Reference Range Interpretation Comments Lymphocytes # (Auto) (test code = 19693-5) 1.2 1.0-3.2 [facility]oMonocytes # (Auto)2018-03-16 05:08:00* Test Item Value Reference Range Interpretation Comments Monocytes # (Auto) (test code = 742-7) 0.4 0.2-0.8 [facility]oEosinophils # (Auto)2018-03-16 05:08:00* Test Item Value Reference Range Interpretation Comments Eosinophils # (Auto) (test code = 711-2) 0.1 0.0-0.4 [facility]aredoBasophils # (Auto)2018-03-16 05:08:00* Test Item Value Reference Range Interpretation Comments Basophils # (Auto) (test code = 704-7) 0.0 0.0-0.1 [facility]aredoAbsolute Immature Granulocyte (auto 2018-03-16 05:08:00* Test Item Value Reference Range Interpretation Comments Absolute Immature Granulocyte (auto (jennifer t code = Absolute Immature Granulocyte (auto) 0.01 0-0.1 [facility]aredoCT ABDOMEN/PELVIS [id number] 17:14:00 [place] [address] Patient Name: MANUELA STRICKLAND MR #: [id number] : 1945 Age/Sex: 72/F Req #: [id number] Adm Physicia n: ISAK RODRIGUEZ MD Ordered by: ISAK RODRIGUEZ MD Report #: [id number] Lo cation: MED/SURG2 Room/Bed: 207 Procedure: [id number]/CT ABDOMEN/PELVIS W Exam Date: 03/13/18 Exam Ti me: 1428 REPORT STATUS: Signed EXAM: CT of the abdomen and pelvis WITH contrast HISTORY: CONSTIPATION AND COLONIC DISTENSION COMPARISON: CT o f the abdomen and pelvis March 09, 2018. Radiographs of the abdomen Septemb er 2017.. TECHNIQUE: The abdomen and pelvis were scanned utilizing a multidetector helical scanner. Coronal and sagittal reformats are provided. PROTOCOL: Routine IV CONTRAST: 100 cc of Isovue-370 . ORAL CONTRAST: Dilute Gastrografin RADIATION DOSE : Total DLP: 349.3 mGy*cm Estimated effective dose: (DL P x 0.015 x size factor) COMPLICATIONS: None FINDINGS: LI NELLIE and TUBES: None. LOWER THORAX: Stable linear opacities at the left lung base, compatible with atelectasis versus scarring. HEPATOBILIARY: S lightly less dilation of the intra and hepatic biliary ducts. Please refer to the recent MRI of the abdomen for further details regarding the biliary ducts . GALLBLADDER: Status post cholecystectomy. SPLEEN: No splenomegaly. PANCREAS: The pancreas is partially obscured, atrophy of the visualized briggs creatic body and tail. Multiple surgical clips within the upper abdomen about the pancreas and spleen. ADRENALS: No adrenal nodules KIDNEYS/URET ERS: Mild atrophy of the left kidney. No hydronephrosis. No cystic or solid ma ss lesions. No stones. GI TRACT: Bowel gas and stool throughout the small bowel and colon, radiopaque contrast throughout the majority of the small edwin l. Interval decreased distention of the colon. Unchanged multifocal postsurgic al changes. PELVIC ORGANS/BLADDER: Unchanged postsurgical changes. The urin john bladder is unremarkable. LYMPH NODES: No lymphadenopathy. VESSELS: Diffuse scattered atherosclerotic vascular calcifications. PERITONEUM / RET ROPERITONEUM: No free air or fluid. BONES: Unchanged scattered degenerative changes of the lumbar spine. SOFT TISSUES: Unchanged postsurgical changes in the anterior abdominal wall and muscle atrophy. IMPRESSION: 1. Interval decreased colonic distention. 2. Multifocal postsurgical changes. 3. Refer to the recent MRI for further details regarding the biliary ducts and pancreas. Signed by: Dr. Johnathan Keita D.O., M.M.M. on 03/13/2018 5:51 PM Dictated By: JOHNATHAN KEITA DO 50 COPY TO: HERMAN RODRIGUEZ MD ABDOMEN-1VIEW (KU)2018-03-12 14:12:00 [place] [address] Patient Name: MANUELA STRICKLAND MR #: [id number] : 1945 Age/Sex: 72/F Req #: [id number] Adm Physician: ISAK RODRIGUEZ MD Ordered by: ISAK RODRIGUEZ MD Report #: [id number] Location: MED/SURG2 [place] [facility] [place] [facility] [place] Procedure: [id number] 5 DX/ABDOMEN-1VIEW (KU) Exam Date: Exam Time: REPORT STATUS: Signed EXAM: ABDOMEN-1VIEW (KU) DATE: 03/12/2018 10:00 AM INDICATION: Constipation. COMPARISON: 03/09/2018 CT FINDINGS: Ventral hernia repair changes. Post cervical changes left upper quadrant/GE j unction. Nonspecific bowel gas pattern with no distinct small bowel obstructiv e change or pneumoperitoneum within limitations of supine positioning and donato on. Stool burden not overly prominent. IMPRESSION: Stable chronic change s. Signed by: Dr. Isaías Gifford MD on 03/12/2018 2:13 PM Dictated By: ISAÍAS GIFFORD MD 12 Transcribed By: TATE on 03/12/181412 COPY TO: ISAK RODRIGUEZ MD MRI MRCP [id number] 00:44:00 [place] [address] Patient Name: MANUELA STRICKLADN MR #: [id number] : 1945 Age/Sex: 72/F Req #: [id number] Adm Physician: ISAK RODRIGUEZ MD Ordered by: DEVIKA BERGER MD Report #: [id number] Location: MED/SURG2 [place] [facility] [place] [facility] [place] Procedure: [id number] M RI/MRI MRCP WO Exam Date: Exam Time: REPORT STATUS: Signed ADDENDUM #[address] from 03/09/2018 Signed by: Dr Zee Pineda MD on 03/11/2018 5:16 AM ORIGINAL REP ORT EXAM: MRI MRCP WO DATE: 03/10/2018 12:45 PM INDICATION: D ilated bile ducts, reported intractable vomiting and right upper quadrant pain . Reported normal bilirubin. COMPARISON: Recent CT from 2017 TECHNIQUE: Multiplanar, multisequence imaging of the abdomen was performed without IV adm inistration of gadolinium. 3-D MRCP fat-saturated sequence was performed post contrast with MIP reformations. FINDINGS: Image quality is degraded by m otion artifact. HEPATOBILIARY: Liver is normal in contour and signal. The jonathan ent is status post cholecystectomy. There is moderate intrahepatic and extrahe patic biliary ductal dilation, the common bile duct measuring up to 1.1 cm wit hout evidence of obstructing stone or lesion. OTHER: Unremarkable appeara nce of the spleen, adrenal gland, and kidneys. A 1.5 cm cystic structure which appears contiguous with the proximal pancreatic duct (MRCP series 11 image 15 ) most likely reflects a side branch IPMN; no main pancreatic ductal dilation. . Susceptibility artifact related to prior gastric bypass and ventral hernia r epair. No free fluid. IMPRESSION: Evaluation degraded by motion artifact 1. Moderate biliary ductal dilation, which can be normal status post cholecy stectomy given reported normal bilirubin. No evidence of choledocholithiasis. 2. Likely 1.5 cm side branch IPMN of the pancreatic head; no main duct dilat ion. Attention on [address] or MRI/MRCP pancreas protocol. Signed by: Dr Zee Pineda MD on 03/11/2018 4:46 AM Dictated B y: ZEE PINEDA MD 0516 Transcribed By: TATE on 03/11/18 0446 COPY TO: DEVIKA BERGER MD Creatine Kinase [id number] 14:21:00* Test Item Value Reference Range Interpretation Comments Creatine Kinase MB (test code = 54993-8) 2.80 0-5.0 [facility]oTroponin [id number] 14:21:00* Test Item Value Reference Range Interpretation Comments Troponin I (test code = WVB5739) 0.007 0-0.300 [facility]aredoCreatine Vbosbn5450-08-43 14:16:00* Test Item Value Reference Range Interpretation Comments Creatine Kinase (test code = 2157-6) 74 29-168 [facility]aredoTotal Uhbxvztxm1715-52-97 05:45:00* Test Item Value Reference Range Interpretation Comments Total Bilirubin (test code = 1975-2) 0.3 0.2-1.2 [facility]aredoAspartate Amino Transf (AST/SGOT) 2018-03-10 05:45:00* Test Item Value Reference Range Interpretation Comments Aspartate Amino Transf (AST/SGOT) (test code = Aspartate Amino Transf (AST/SGOT)) 26 5-34 [facility]aredoAlanine Aminotransferase (ALT/SGPT) 2018-03-10 05:45:00* Test Item Value Reference Range Interpretation Comments Alanine Aminotransferase (ALT/SGPT) (test code = 1742-6) 16 0-55 [facility]oTotal Eweofgl4961-88-09 05:45:00* Test Item Value Reference Range Interpretation Comments Total Protein (test code = 2885-2) 5.8 6.5-8.1 L [facility] LaredoAlbumin2018-09-03 05:45:00* Test Item Value Reference Range Interpretation Comments Albumin (test code = 1751-7) 3.4 3.5-5.0 L [facility]aredoGlobulin2018-09-03 05:45:00* Test Item Value Reference Range Interpretation Comments Globulin (test code = 06416-7) 2.4 2.3-3.5 [facility]aredoAlbumin/Globulin Ilypt6234-04-32 05:45:00 * Test Item Value Reference Range Interpretation Comments Albumin/Globulin Ratio (test code = 1759-0) 1.4 0.8-2.0 [facility]oAlk[facility] Afoikoniyyk5744-94-05 05:45:00* Test Item Value Reference Range Interpretation Comments Alkaline Phosphatase (test code = 6768-6) 94 40-150 [facility]oAm[facility] Gbrct8616-70-61 05:45:00* Test Item Value Reference Range Interpretation Comments Amylase Level (test code = 1798-8) 138 25-125 H [facility] LaredoLipase2018-09-03 05:45:00* Test Item Value Reference Range Interpretation Comments Lipase (test code = 3040-3) 10 8-78 [facility]oCT ABDOMEN/PELVIS [id number] 17:35:00 [facility] [address] [place] [address] Patient Name: MANUELA STRICKLAND MR #: [id number] : 1945 [facility] 72[id number] Req #: [id number] Adm Physicia n: Ordered by: ZEN MCDANIELS CREAM SEPARATOR OPERATOR Report #: [id number] Location: ER [facility]/Bed: Procedure: CT/CT ABDOMEN/PELVIS W Exam Date: Exam Time: REPORT STATUS: Signed EXAM: CT Abdomen and Pelvis WITH contrast INDICATION: COM PARISON: CT abdomen and pelvis 01/09/2017 TECHNIQUE: Abdomen and pelvis were s canned utilizing a multidetector helical scanner from the lung base to the pub ic symphysis after administration of IV contrast. Coronal and sagittal reforma tions were obtained. Routine protocol was performed. Scan was performed when d uring portal venous phase. IV CONTRAST: 100 mL of Isovue-370 ORAL CONTRAST: Water RADIATION DOSE: Total DLP: 510.4 mGy *cm Estimated effective dose: (DLP x 0.015 x size factor) mSv COMPLICATIONS: None FINDINGS: LINES and TUBES: None. L OWER THORAX: Linear scarring in the left lower lobe is unchanged.9 interval r esolution of the centrilobular pulmonary nodules consistent with resolving inf ection. Trace pericardial effusion. HEPATOBILIARY: No focal hepatic le sions. Persistent diffuse dilatation of the intra and extrahepatic ducts. The common bile measure 1.3 cm in diameter, unchanged. There is no hyperdensities within the bile ducts. GALLBLADDER: Cholecystectomy. SPLEEN: No splen omegaly. PANCREAS: The pancreatic head is not well visualized. There is at rophy of the pancreatic body and tail. There are multiple surgical clips withi n the anterior abdomen, anterior to the pancreas and the spleen, unchanged. ADRENALS: No adrenal nodules KIDNEYS/URETERS: Kidneys enhance symmet rically. No hydronephrosis. No cystic or solid mass lesions. No stones. GI TRACT: There is persistent distention of the colon, worse in the transverse measuring 6.3 cm in diameter and containing large amount of retained stool is suggestive of chronic constipation. There are a few loops of small bowel in th e left abdomen that are also mildly distended measuring up to 2.8 cm on series 2, image 36, unchanged when compared to prior exam. Postsurgical changes in t he right cecum. Postsurgical changes related to low rectal resection and ba riatric surgery PELVIC ORGANS/BLADDER: Unchanged hysterectomy and bilateral oophorectomies. The urinary bladder is mildly distended. LYMPH NODES: N o lymphadenopathy. VESSELS: The abdominal aorta and pelvic arteries are nor mal in caliber and associated with scattered atherosclerotic calcifications. T he celiac trunk, a semi-, ARTIE, and single bilateral renal arteries are widely patent. PERITONEUM / RETROPERITONEUM: No free air or fluid. BONES: Deg enerative changes of the lumbar spine. SOFT TISSUES: Postsurgical changes i n the anterior abdominal wall with evidence of repair with mesh. Diastases of the rectus abdominis muscle and atrophy of the anterior abdominal wall. IMPRESSION: 1. Postsurgical changes related to low rectal resection and bariatric surgery, stable. 2. Persistent diffuse dilatation of the colon and few loops of small bowel in the left abdomen with large amount of retained stool suggestive of long-standing constipation. - No transition point id entified. 3. Persistent intra and extrahepatic biliary duct dilatation more than expected after cholecystectomy. Consider further evaluation with MRI abd omen with and without contrast with MRCP. Signed by: Dr. Alla Navarrete M.D. on 03/09/2018 5:59 PM Dictated By: ALLA CRANE MD 58 Transcr ibed By: TATE on 03/09/181758 COPY TO: ZEN MCDANIELS CREAM SEPARATOR OPERATOR Urine Ocsjp5255-15-08 16:42:00* Test Item Value Reference Range Interpretation Comments Urine Color (test code = 5778-6) YELLOW YELLOW [facility] Cqkkxgf0664-63-07 16:42:00* Test Item Value Reference Range Interpretation Comments Urine Clarity (test code = 71268-9) CLEAR CLEAR [facility] Specific Cggfavf0885-15-84 16:42:00 * Test Item Value Reference Range Interpretation Comments Urine Specific [place] (test code = 5811-5) 1.005 1.010-1.02 5 L [facility]rine [id number] 16:42:00* Test Item Value Reference Range Interpretation Comments Urine pH (test code = 82827-2) 6 5-7 [facility] Leukocyte Gnxssjnr1606-03-62 16:42:00* Test Item Value Reference Range Interpretation Comments Urine Leukocyte Esterase (test code = 5799-2) TRACE NEGATIVE H [facility] Phzjmgp3112-31-84 16:42:00* Test Item Value Reference Range Interpretation Comments Urine Nitrite (test code = 63158-5) NEGATIVE NEGATIVE [facility] Aishhyy2723-80-20 16:42:00* Test Item Value Reference Range Interpretation Comments Urine Protein (test code = 5804-0) NEGATIVE NEGATIVE [facility] Glucose (UA)2018-03-09 16:42:00* Test Item Value Reference Range Interpretation Comments Urine Glucose (UA) (test code = 2349-9) NEGATIVE NEGATIVE [facility] Gxiqlox0808-46-26 16:42:00* Test Item Value Reference Range Interpretation Comments Urine Ketones (test code = 31129-3) NEGATIVE NEGATIVE [facility] Gnthqzpdtkyz4712-17-14 16:42:00* Test Item Value Reference Range Interpretation Comments Urine Urobilinogen (test code = 59786-9) 0.2 0.2-1 [facility] Cnzjdgvgf1388-99-17 16:42:00* Test Item Value Reference Range Interpretation Comments Urine Bilirubin (test code = 1978-6) NEGATIVE NEGATIVE [facility] Fmrak2110-75-53 16:42:00* Test Item Value Reference Range Interpretation Comments Urine Blood (test code = 42808-0) NEGATIVE NEGATIVE [facility] [id number] 16:42:00* Test Item Value Reference Range Interpretation Comments Urine WBC (test code = 5821-4) 0-5 0-5 [facility] SRL2795-55-82 16:42:00* Test Item Value Reference Range Interpretation Comments Urine RBC (test code = 68571-8) 0-5 0-5 [facility] Tmuhagtj4831-64-50 16:42:00* Test Item Value Reference Range Interpretation Comments Urine Bacteria (test code = 16699-4) RARE NONE [facility] Epithelial Hnhtw4428-26-67 16:42:00 * Test Item Value Reference Range Interpretation Comments Urine Epithelial Cells (test code = 93977-4) RARE NONE [facility]oProthrombin Tixl0317-35-23 15:57:00* Test Item Value Reference Range Interpretation Comments Prothrombin Time (test code = 5902-2) 13.3 11.9-14.5 [facility]oProthromb Time International Ratio 2018-03-09 15:57:00* Test Item Value Reference Range Interpretation Comments Prothromb Time International Ratio (test code = 6301-6) 1.09 Oral Anticoagulant Therapy INR Values:1. Low Intensity Therapy 1.5 - 2.02 . Moderate Intensity Therapy 2.0 - 3.03. High Intensity Therapy(1) 2.5 - 3. 54. High Intensity Therapy(2) 3.0 - 4.05. Panic Value INR > 5.0 [facility]oAct[facility] Partial Thromboplast Time 2018-03-09 15:57:00* Test Item Value Reference Range Interpretation Comments Activated Partial Thromboplast Time (test code = 74375-6) 29.9 23.8-35.5 [facility]ST SINGLE (PORTABLE)2018-03-09 15:29:00 [facility] [address] [place] [address] Patient Name: MANUELA STRICKLAND MR #: [id number] : 1945 Age/Sex: 72/F Req #: [id number] Adm Physician: Ordered by: ZEN MCDANIELS NP Report #: [id number] Location: ER Room/Bed: Procedure: DX/CHEST SINGLE (PORTABL E) Exam Date: 03/09/18 Exam Time: 1520 REPORT STATUS: Signed EXAMINATION: CHEST SINGLE (PORTABLE) INDICATION: COMPARISON: Chest radiograph 01/10/2017 FINDINGS : AP view TUBES and LINES: None. LUNGS: Lungs are well inflated. Lungs are clear. There is no evidence of pneumonia or pulmonary edema. PLEURA: No pleural effusion or pneumothorax. HEART AND MEDIASTINUM: The cardiomediastinal silhouette is unremarkable.. BONES AND SOFT TISSUES: Unchanged fixation of the cervical spine with orthopedic hardware. Surgical c lips overlying the left upper quadrant. UPPER ABDOMEN: No free air under th e diaphragm. IMPRESSION: No acute thoracic abnormality. Interva l resolution of the right lower lobe pneumonia. Signed by: Dr. Alla Crane M.D. on 03/09/2018 3:30 PM Dictated By: ALLA RUTLEDGE MD 153 Transcribed By: TATE on 03/09/18 153 COPY TO: ZEN MCDANIELS NP SPINE CERVICAL AP LAT FLEX EXT [place] [address] Patient Name: MANUELA STRICKLAND MR #: [id number] : 1945 Age/Sex: 72/F Req #: [id number] Adm Physician: Ordered by: STORMY LITTLE MD Report #: [id number] Location: [facility] Room/Bed: Procedure: [id number] DX/SPINE CERVICAL AP LAT FLEX EXT Exam Date: 07/18/17 Exam Time: 1430 R EPORT STATUS: Signed PROCEDURE: C-SPINE AP AND LAT WITH FLEX AND EXT CO MPARISON: Cervical spine series 04/05/17. INDICATIONS: EVALUATE FUSI ON STATUS FINDINGS: Cervical vertebral bodies can be visualized to t he level of C6. The patient is status post ACDF at C4-5 and C6-7. These s crews and hardware at C4-5 are stable without surrounding lucency to suggest loosening. The fusion plate at C6-7 is incompletely imaged on lateral imag e. The screws in C6 are intact without surrounding lucency to suggest looseni ng. The plate is intact the AP image. There is bony fusion from C4-C6 and likely C7. There is no evidence of motion with flexion or extension. There is mild posterior disc space narrowing of C3-4 without osteophytic lipping. The facets and spinous processes are normally aligned. There is mild facet arthropathy at C2-3 and C3-4. 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 Alignment is maintained on AP image. The skull base and upper chest are unremarkable. CONCLUSION: 1. Incomplete visualization of th e fusion plate at C6-7 on lateral image. Otherwise, cervical hardware is stab le without evidence of loosening. Stable bony fusion from C4-C6/7. 2. No motion with flexion or extension. 3. Mild degenerative changes of the cervic al spine as described above. No progression compared to previous exam. 4. N o new findings. Dictated by: Brendan Brumfield M.D. on 07/18/2017 a t 15:13 Electronically approved by: Brendan Brumfield M.D. on 07/18/2017 a t 15:13 Dictated By: BRENDAN BRUMFIELD MD Electronically Sign ed By: BRENDAN BRUMFIELD MD on 07/18/17 151 Transcribed By: MC on 07/18/17 1513 COPY TO: STORMY LITTLE MD CT CERVICAL SPINE [place] [address] Patient Name: MANUELA STRICKLAND MR #: [id number] : 1945 Age/Sex: 72/F Req #: [id number] [facility] Physician: Ordered by: STORMY LITTLE MD Report #: [id number] Location: CT Room /Bed: Procedure: [id number] CT/CT CERVICAL SPINE WO E xam Date: 04/05/17 Exam Time: 1503 REPORT STATU S: Signed History: Status post cervical fusion 3 months ago with neck pain. Comparison studies: X-ray of the cervical spine 01/22/2017 Technique: Ax ial images were obtained through the cervical region. Coronal and sagittal artie ges reconstructed from the axial data. Intravenous contrast: None Finding s: Atlantoaxial articulation: Fused atlantoaxial joint. Alignment: Normal lordosis No scoliosis. Cervicomedullary junction: No abnormalities. Patent fo ramen magnum. Soft tissues: No gross abnormalities. Surgical changes: Anterior cervical fusion and spacers at C4-C5 and C6-7. Fusion of C5-C6 . Foca l lucency surrounding the right C7 screw with sclerotic margin, probably relat ed to previous intervention. 2 screw tracts are seen at C5 vertebral body. Vertebrae: No fractures, neoplasm or infection. Degenerative changes: C2-C3: Decreased intervertebral space. Mild bilateral facet hypertrophy. Patent canal and foramina. . C3-4: Disc degeneration with decreased int ervertebral space. Asymmetric left disc osteophyte complex, left uncinate proc ess hypertrophy and bilateral uncinate process hypertrophy results in no signi ficant canal stenosis and moderate left foraminal narrowing . C4-5: Dif fuse disc osteophyte complex, bilateral uncinate process hypertrophy and facet hypertrophy results in mild canal stenosis, moderate right and mild left fora go narrowing . C5-6: Asymmetric right disc osteophyte complex without significant canal stenosis or foraminal narrowing. . C6-7: Left uncinat e process hypertrophy results in no canal stenosis and mild left foraminal madison rowing . C7-T1: Patent spinal canal and foramina . IMPRESSION: 1. Anterior cervical fusion at C4-C5 and C6-C7 without evidence of hardware complication. 2. Mild to moderate degenerative changes of the cervical spi ne without significant canal stenosis. 3. Moderate foraminal narrowing a t C3-4 on the left and C4-C5 on the right, secondary to degenerative changes. Other mild degenerative changes as described above. Signed by: DR Wilner Leigh M.D. on 04/09/2017 3:08 PM Dictated By: WILNER PRADO MD 150 Transcribe d By: TATE on 04/09/17 3984 COPY TO: STORMY LITTLE MD CERVICAL SPINE 4 OR 5 VIEWS [place] [address] Patient Name: MANUELA STRICKLAND MR #: [id number] : 1945 Age/Sex: 72/F Req #: [id number] Adm Physician: Ordered by: STORMY LITTLE MD Report #: [id number] Location: CT Room/Bed: Procedure: [id number] DX/CERVICAL SPINE 4 OR 5 V IEWS Exam Date: Exam Time: REPORT STATUS: Si gned PROCEDURE: C-SPINE COMPLETE, including bilateral obliques. COMPARI SON: C-spine 01/22/2017. INDICATIONS: PAIN IN NECK RADIATING TO LEFT SHOULDER FINDINGS: C1 through C7 are visualized on the lateral view . Normal cervical lordosis. Re-demonstration of status post anterior fusion o f C4-C5, C6-C7 with metallic plate and transfixing screws which are intact an d in adequate alignment. There has been good bony fusion of C4-C5 with in tervertebral disc prosthesis, good bony union at C5-C6, and a bony union at C 6-C7. Bony union of the posterior elements of C2-C3. Moderate multilevel facet arthrosis. Bilateral oblique does not demonstrate significant neuro foraminal narrowing. The prevertebral soft tissues are not swollen. CONCLUSION: Stable anterior fusion of C4-C5 and C6-C7 with good bony unio n at C5-C6 and C6-C7. Dictated by: Aryan Ward M.D. on 04/05/2017 at 15:31 Electronically approved by: Aryan Ward M.D. on 04/05/2017 at 15:31 Dictated By: ARYAN WARD MD 1531 COPY TO: STORMY LITTLE MD
--- OUTSIDE RECORDS SUMMARY | 2020-02-11 16:37 | XMS REPORT | Summary of Care ---
Author MANUELA Lilly Organization Unknown Address [place] [facility] Phone Unavailable Care Team Providers Care Credit Balance Specialist Name Role Phone MOLINA RICO APRN Unavailable Unavailable PEYTON Sanders, [place] Unavailable Unavailable Sarah Schuster Unavailable Unavailable PEYTON HAYDEN [place], [place] Peña Unavailable Unavailable JOSSIE EDWARDS MD Unavailable Unavailable Unavailable Unavailable Functional Status Name Dates Details Functional status health issues are not documented Status: Name Dates Details Cognitive status health issues are not d ocumented Status: Problems Name Dates Details Neck pain (723.1, M54.2) Status: Active Fatigue (780.79, R53.83) Status: Active Wrist pain (719.43, M25.539) Status: Active Decreased renal function (593.9, N28.9) Status: Active Frequent urination (788.41, R35.0) Status: Active Abdominal pain (789.00, R10.9) Status: Active Urinary tract infection (599.0, N39.0) Status: Active Reaction, drug, adverse (E947.9, T50.905 A) Status: Active Ganglion of left wrist (727.41, M67.432) Status: Active Diarrhea, functional (564.5, K59.1) Status: Active Nausea with vomiting, unspecified (787.0 1, R11.2) Status: Active Chronic pain (338.29, G89.29) Status: Active Leg pain (729.5, M79.606) Status: Active Dyspnea (786.09, R06.00) Status: Active Recurrent UTI (599.0, N39.0) Status: Active Acute pain of right hip (719.45, M25.551 ) Status: Active Chondrocalcinosis (275.49, M11.20) Status: Active Hypophosphatemia (275.3, E83.39) Status: Active Iron deficiency anemia (280.9, D50.9) Status: Active Skin rash (782.1, R21) Status: Active Chest pain, atypical (786.59, R07.89) Status: Active Other form of dyspnea (786.09, R06.09) Status: Active Hypoxemia (799.02, R09.02) Status: Active Acute medication-induced akathisia (333. 99, G25.71) Status: Active Restlessness and agitation (799.29, R45. 1) Status: Active Allergy to sulfa drugs (V14.2, Z88.2) Status: Active Urinary retention with incomplete bladde r emptying (788.21, R33.9) Status: Active Medicare annual wellness visit, subseque nt (V70.0, Z00.00) Status: Active Adverse drug effect (E947.9, T50.905A) Status: Active Anemia (285.9, D64.9) Status: Active Anxiety (300.00, F41.9) Status: Active Arthritis of carpometacarpal (CMC) joint of left thumb (716.94, M18.12) Status: Active Asthma, mild intermittent (493.90, J45.2 0) Status: Active Gastroesophageal reflux disease (530.81, K21.9) Status: Active Headache (784.0, R51) Status: Active Insomnia (780.52, G47.00) Status: Active Interstitial cystitis (595.1, N30.10) Status: Active Vitamin B12 deficiency (266.2, E53.8) Status: Active Advance directive on file (V49.89, Z78.9 ) Status: Active Edema (782.3, R60.9) Status: Active [...] Dates Details Ondansetron 4 MG Oral Tablet Disintegrat ing DISSOLVE ONE TABLET BY MOUTH DAILY NEEDED FOR NAUSEA Quantity: 90 MOLINA RICO APRN * Start : 16-Apr-2013 Active Cyanocobalamin 1000 MCG/ML Injection Solution INJECT 1ML IN MUSCLE ONCE A MONTH * Quantity: 12 Refills: 0 MOLINA RICO APRN * Start : 19-Jun-2018 Active Promethegan 25 [...] * Quantity: 12 Refills: 0 MOLINA RICO APRN * Start : 27-May-2013 Active ALPRAZolam 0.25 [...] TODD M.D. * Start : 22-Nov-2015 Active Iaqiunmuio-QJMF-Mbsmsikt 50-325-40 MG Oral Capsule TAKE 1 CAPSULE [...] * Quantity: 18 Refills: 0 MOLINA RICO APRN * Start : 10-Oct-2018 Active Furosemide 20 [...] Name Dates Details Amitriptyline HCl TABS (Allergy) Reactio n: Rash Status: Active Bactrim TABS (Allergy) Status: Active Cipro TABS (Allergy) Status: Active Codeine Derivatives (Allergy) Status: Ac tive Compazine TABS (Allergy) Status: Active Dilaudid-HP SOLN (Allergy) Status: Activ e Flagyl CAPS (Allergy) Status: Active Formaldehyde SOLN (Allergy) Status: Acti ve Gabapentin TABS (Allergy) Reaction: Visu al Disturbance Status: Active garlic (Allergy) Status: Active Haldol SOLN (Allergy) Status: Active Levaquin TABS (Allergy) Status: Active Morphine Derivatives (Adverse Event) Milvia ction: Insomnia Status: Active Reglan (Allergy) Status: Active Sulfites (Allergy) Status: Active Toradol SOLN (Allergy) Status: Denied traMADol HCl TABS (Adverse Event) Reacti on: Itching Status: Active Strawberries (Allergy) Status: Active Tape (Allergy) Status: Active Past Medical History Name Dates Details History of Acute foot pain, left (729.5, M79.672) Status: Resolved History of Anginal equivalent (413.9, I2 0.8) Status: Resolved History of backache (V13.59, Z87.39) Status: Resolved History of burning on urination Status: Resolved History of candidiasis (V12.09, Z86.19) Status: Resolved History of chest pain (V13.89, Z87.898) Status: Resolved History of Contusion of foot, left (924. 20, S90.32XA) Status: Resolved History of Costochondritis (733.6, M94.0 ) Status: Resolved History of heartburn (V12.79, Z87.898) Status: Resolved History of hemoptysis (V12.69, Z87.09) Status: Resolved History of hyperglycemia (V12.29, Z86.39 ) Status: Resolved History of hypoglycemia (V12.29, Z86.39) Status: Resolved History of influenza vaccination (V49.89 , Z92.29) Status: Resolved History of Migraine (346.90, G43.909) Status: Resolved History of Neck pain (723.1, M54.2) Status: Resolved History of Nutritional counseling (V65.3 , Z71.3) Status: Resolved History of Pyuria (791.9, R82.81) Status: Resolved History of Superficial bruising of foot (924.20, S90.30XA) Status: Resolved History of Tendon tear, foot (845.10, S9 6.919A) Status: Resolved History of Upper respiratory infection, acute (465.9, J06.9) Status: Resolved History of Wrist pain, acute, left (719. 43, M25.532) Status: Resolved Personal history of urinary tract infect ion (V13.02, Z87.440) Status: Resolved Procedures Procedure Dates Details History of Gastric Surgery Completed 1-D ec-2001 History of Hip Surgery Completed History of Hysterectomy Completed History of Lower Back Surgery Completed History of Colon Surgery Completed History of Neck Surgery Completed Comments: Completed: 2001 History of Corneal LASIK Bilateral Compl eted History of Gastric Surgery Completed 1-D ec-2005 Immunization Name Dates Details Pneumo on: 30-Apr-2007 H1N1 Influenza Inj on: 14-Jun-2009 Influenza on: 03-Apr-2011 Influenza on: Mar-2014 Influenza on: Mar-2015 Prevnar 13 Intramuscular Suspension on: 08-Mar-2015 Fluzone High-Dose 0.5 ML Intramuscular S uspension Prefilled Syringe Lot #: [id number] on: 11-May-2016 Fluzone High-Dose 0.5 ML Intramuscular S uspension Prefilled Syringe Lot #: [id number] on: 01-Apr-2017 Influenza, seasonal, injectable on: 10-Apr-2018 Family History Name Dates Details Family history of Colon Cancer (V16.0) Status: Active Name Dates Details Family history of Diabetes Mellitus (V18 .0) Status: Active Name Dates Details Family history of Diabetes Mellitus (V18 .0) Status: Active Family history of Acute Myocardial Infar ction (V17.3) Status: Active Family history of Transient Ischemic Att ack Status: Active Social History Name Dates Details Tobacco smoking consumption unknown (finding) Vital Signs Date Test Result Details No Known Vitals to report Results Date Description Value Details Results not documented Plan of Care Name Dates Details Planned Observations Planned Goals not documented Instructions Name Dates Details Instructions not documented [...] not documented On: 04-Feb-2018 10:15 Appointment; ANTONIO RODRIGUEZ M.D. Encounter Diagnosis: Problem not documented On: [...] Problem not documented On: 06-Jan-2019 15:15 Appointment; [place] TODD M.D. Encounter Diagnosis: Problem not documented On: 5-Aug-2019 15:15 Appointment; [place] TODD M.D. Encounter Diagnosis: Problem not documented On: 10-Apr-2019 11:30
[2020-02-11 18:47] LABS: CREATINE KINASE MB 0.7 ng/mL (0-5.0)
== END 2020-02-11 18:41 | disposition home or self-care (01) ==
LOC: ER 15:00
DX: S06.0X0A Concussion without loss of consciousness, initial encounter (principal); R51 Headache; R50.9 Fever, unspecified; W18.30XA Fall on same level, unspecified, initial encounter; I10 Essential (primary) hypertension; F41.9 Anxiety disorder, unspecified; Z98.84 Bariatric surgery status; Z11.59 Encounter for screening for other viral diseases
CPT/HCPCS: 36415; 70450; 71250; 72125; 80053; 82550; 82553; 84484; 85025; 85610; 85730; 99284; U0002

== ENCOUNTER → 2021-06-07 | Day surgery (SDC) | payer MEDICARE, BC ==
[2021-06-06 11:50] LABS: BASOPHILS % 0.5 % (0.0-1.0); EOSINOPHILS # (AUTO) 0.2 (0.0-0.4); EOSINOPHILS % 2.7 % (0.0-6.0); HEMATOCRIT 40.1 % (34.2-44.1); HEMOGLOBIN 12.5 g/dL (12.0-16.0); LYMPHOCYTES # (AUTO) 1.6 (1.0-3.2); LYMPHOCYTES % 21.5 % (18.0-39.1); MEAN CORPUSCULAR HGB CONC 31.2 g/dL (31-35); MONOCYTES # (AUTO) 0.6 (0.2-0.8); MONOCYTES % 8.5 % (4.4-11.3); NEUTROPHILS # (AUTO) 4.9 (2.1-6.9); NEUTROPHILS % 66.5 % (38.7-80.0); PLATELET COUNT 222 x10e3/uL (140-360); RED BLOOD COUNT 4.31 x10e6/uL (3.6-5.1); RED CELL DISTRIBUTION WIDTH 13.2 % (11.7-14.4)
[~2021-06-07] MED LIST changes: +AUSTEDO9 MG PO; +BELSOMRA20 MG PO; +DOXYCYCLINE HY100 MG PO; +FENTANYL CITRATE/PF 100MCG/2 ML INJ ONE; +HYDROCODON-ACE1 EAC9 PO; +MIDAZOLAM HCL 2 MG/2 ML VIAL ONE; +PAMELOR25 MG PO; +PROPOFOL IV EMULSION 10 MG/ML 20 ML VIAL ONE
[2021-06-07 09:45] VITALS: BP 135/63
== END | disposition home or self-care (01) ==
LOC: ENDO 07:44
PROVIDERS: ATTEND Internal Medicine Gastroenterology
DX: R13.10 Dysphagia, unspecified (principal); K22.89 Other specified disease of esophagus; K31.89 Other diseases of stomach and duodenum; K21.9 Gastro-esophageal reflux disease without esophagitis; Z93.1 Gastrostomy status; Z86.010 Personal history of colon polyps; R19.7 Diarrhea, unspecified; E03.9 Hypothyroidism, unspecified; J45.909 Unspecified asthma, uncomplicated; I10 Essential (primary) hypertension; N39.0 Urinary tract infection, site not specified; Z88.6 Allergy status to analgesic agent; Z88.8 Allergy status to other drugs, medicaments and biological substances; Z91.018 Allergy to other foods; Z91.048 Other nonmedicinal substance allergy status; Z01.810 Encounter for preprocedural cardiovascular examination; Z01.812 Encounter for preprocedural laboratory examination; Z20.822 Contact with and (suspected) exposure to COVID-19; Z79.899 Other long term (current) drug therapy; Z68.27 Body mass index [BMI] 27.0-27.9, adult; Z86.19 Personal history of other infectious and parasitic diseases; Z86.2 Personal history of diseases of the blood and blood-forming organs and certain disorders involving the immune mechanism; Z80.0 Family history of malignant neoplasm of digestive organs
CPT/HCPCS: 36415; 43239; 43450; 85025; 88305; 93005; C9113; J2704; U0002; J2250; J3010

== ENCOUNTER 2021-07-24 21:38 | Emergency (ER) | payer MEDICARE, BC, OTHER ==
[~2021-07-24] VITALS: Ht 165.1 cm; Wt 73.5 kg
[~2021-07-24 21:38] MED LIST changes: -FENTANYL CITRATE/PF 100MCG/2 ML INJ ONE; -MIDAZOLAM HCL 2 MG/2 ML VIAL ONE; -PROPOFOL IV EMULSION 10 MG/ML 20 ML VIAL ONE
[2021-07-24] MEDS ORDERED: ONDANSETRON HCL 4 MG ORAL DISINTEGRATING TAB PO ONE (22:15)
[2021-07-24] MEDS ORDERED: HYDROCODONE/APAP 5MG-325MG TAB PO ONE (22:15)
[2021-07-24 22:18] VITALS: BP 178/92
[2021-07-24] MEDS ORDERED: HYDROCODONE/APAP 5MG-325MG TAB ONE (22:25)
[2021-07-24] MEDS ORDERED: ONDANSETRON HCL 4 MG ORAL DISINTEGRATING TAB ONE (22:25)
== END 2021-07-24 22:24 | disposition home or self-care (01) ==
LOC: FSED 22:05
DX: S80.212A Abrasion, left knee, initial encounter (principal); S83.92XA Sprain of unspecified site of left knee, initial encounter; W01.0XXA Fall on same level from slipping, tripping and stumbling without subsequent striking against object, initial encounter; Y93.01 Activity, walking, marching and hiking; Y92.481 Parking lot as the place of occurrence of the external cause; I10 Essential (primary) hypertension; F41.9 Anxiety disorder, unspecified; D50.9 Iron deficiency anemia, unspecified; Z98.84 Bariatric surgery status
CPT/HCPCS: 99282; Q0162

== ENCOUNTER → 2022-12-24 | Day surgery (SDC) | payer BC, MEDICARE ==
[2022-12-18 09:53] LABS: BASOPHILS % 0.4 % (0.0-1.0); EOSINOPHILS # (AUTO) 0.1 (0.0-0.4); EOSINOPHILS % 2.1 % (0.0-6.0); HEMATOCRIT 38.9 % (34.2-44.1); HEMOGLOBIN 12.2 g/dL (12.0-16.0); LYMPHOCYTES # (AUTO) 1.8 (1.0-3.2); LYMPHOCYTES % 33.2 % (18.0-39.1); MEAN CORPUSCULAR HEMOGLOBIN 27.7 pg (28-32); MEAN CORPUSCULAR HGB CONC 31.4 g/dL (31-35); MEAN CORPUSCULAR VOLUME 88.4 fL (81-99); MONOCYTES # (AUTO) 0.6 (0.2-0.8); MONOCYTES % 11.4 % (4.4-11.3); NEUTROPHILS # (AUTO) 2.8 (2.1-6.9); NEUTROPHILS % 52.7 % (38.7-80.0); PLATELET COUNT 143 x10e3/uL (140-360); RED CELL DISTRIBUTION WIDTH 12.7 % (11.7-14.4)
[~2022-12-24] MED LIST changes: +FENTANYL CITRATE/PF 100MCG/2 ML INJ ONE; +HYDROXYZIN10 MG/5 ML PO; +LACTATED RINGER'S 1,000 ML ONE; +LIDOCAINE HCL 2% LOCAL INJ 5 ML SDV VIAL INJ ONE; +METOCLOPRAMIDE HCL 10 MG/2ML VIAL ONE; +NORCO PO; +PROPOFOL IV EMULSION 10 MG/ML 20 ML VIAL ONE
[2022-12-24 11:07] VITALS: O2SAT 100
[2022-12-24 11:35] VITALS: BP 163/77; PULSE 58; RESP 16
== END | disposition home or self-care (01) ==
LOC: ENDO 07:35
PROVIDERS: ATTEND Internal Medicine Gastroenterology
DX: K22.2 Esophageal obstruction (principal); K21.9 Gastro-esophageal reflux disease without esophagitis; Z98.84 Bariatric surgery status; I10 Essential (primary) hypertension; E78.5 Hyperlipidemia, unspecified; J45.909 Unspecified asthma, uncomplicated; E03.9 Hypothyroidism, unspecified; Z88.6 Allergy status to analgesic agent; Z88.2 Allergy status to sulfonamides; Z88.8 Allergy status to other drugs, medicaments and biological substances; Z91.048 Other nonmedicinal substance allergy status; Z01.810 Encounter for preprocedural cardiovascular examination; Z01.812 Encounter for preprocedural laboratory examination; Z79.899 Other long term (current) drug therapy; Z86.19 Personal history of other infectious and parasitic diseases
CPT/HCPCS: 36415; 43235; 43450; 85025; 93005; C9113; J2001; J2704; J2765; J3010; J7121

== ENCOUNTER 2023-07-18 14:04 | Inpatient (IN) | payer MEDICARE ==
[~2023-07-18] VITALS: Ht 165.1 cm; Wt 58.5 kg
[~2023-07-18 14:04] MED LIST changes: -FENTANYL CITRATE/PF 100MCG/2 ML INJ ONE; -LACTATED RINGER'S 1,000 ML ONE; -LIDOCAINE HCL 2% LOCAL INJ 5 ML SDV VIAL INJ ONE; -METOCLOPRAMIDE HCL 10 MG/2ML VIAL ONE; -PROPOFOL IV EMULSION 10 MG/ML 20 ML VIAL ONE
[2023-07-18] MEDS ORDERED: ONDANSETRON HCL 4 MG ORAL DISINTEGRATING TAB PO PRN (15:00)
[2023-07-18 15:36] VITALS: BP 164/57; PULSE 75; RESP 18; TEMP 97.9; O2SAT 100
[2023-07-18 15:37] VITALS: BP_SYST 113; BP_SYST 137; BP_DIAS 74; BP_DIAS 79; PULSE 75; RESP 18; TEMP 97.9; O2SAT 100
[2023-07-18] MEDS ORDERED: SODIUM CHLORIDE 0.9% 1000ML 1,000 ML IV ONE (15:45)
[2023-07-18 15:50] VITALS: BP 113/74; PULSE 75; RESP 18; TEMP 97.9; O2SAT 100
[2023-07-18 16:04] VITALS: BP 113/74; PULSE 75; RESP 18; TEMP 97.9; O2SAT 100
[2023-07-18 17:01] LABS: BASOPHILS % 0.7 % (0.0-1.0); EOSINOPHILS % 0.7 % (0.0-6.0); HEMATOCRIT 37.5 % (34.2-44.1); LYMPHOCYTES # (AUTO) 1.7 (1.0-3.2); LYMPHOCYTES % 27.6 % (18.0-39.1); MEAN CORPUSCULAR HEMOGLOBIN 28.2 pg (28-32); MEAN CORPUSCULAR VOLUME 88.2 fL (81-99); MONOCYTES # (AUTO) 0.6 (0.2-0.8); MONOCYTES % 10.1 % (4.4-11.3); NEUTROPHILS # (AUTO) 3.7 (2.1-6.9); NEUTROPHILS % 60.6 % (38.7-80.0); PLATELET COUNT 182 x10e3/uL (140-360); RED BLOOD COUNT 4.25 x10e6/uL (3.6-5.1); RED CELL DISTRIBUTION WIDTH 15.5 % (11.7-14.4); WHITE BLOOD COUNT 6.13 x10e3/uL (4.8-10.8)
[2023-07-18 17:38] LABS: ALBUMIN 3.8 g/dL (3.5-5.0); ALBUMIN/GLOBULIN RATIO 1.3 (0.8-2.0); ANION GAP 13.9 mmol/L (8-16); BILIRUBIN,TOTAL 0.5 mg/dL (0.2-1.2); CALCIUM 8.9 mg/dL (8.4-10.2); CREATININE, SERUM 1.08 mg/dL (0.57-1.11); POTASSIUM 3.9 mmol/L (3.5-5.1); TOTAL PROTEIN 6.7 g/dL (6.5-8.1)
[2023-07-18] MEDS ORDERED: SODIUM CHLORIDE 0.9% 1000ML 1,000 ML IV SCH (18:00)
[2023-07-18] MEDS ORDERED: DOXYCYCLINE HY100 MG PO (19:00)
[2023-07-18] MEDS ORDERED: Vitamin B12 SQ (19:00)
[2023-07-18] MEDS ORDERED: LYRICA75 MG PO (19:00)
[2023-07-18] MEDS ORDERED: TIZANIDINE HCL4 M1 PO (19:00)
[2023-07-18] MEDS ORDERED: LORATADINE10 MG PO (19:00)
[2023-07-18] MEDS ORDERED: ALPRAZOLAM0.25 MG PO (19:00)
[2023-07-18] MEDS ORDERED: MECLIZINE HCL12.5 MG PO (19:02)
[2023-07-18] MEDS ORDERED: TRIAMCINOLONE A15 G1 TOP (19:03)
[2023-07-18 20:00] VITALS: BP 151/56; PULSE 66; RESP 17; TEMP 98.3; O2SAT 99
[2023-07-18] MEDS ORDERED: IOPAMIDOL 370 MG/ML 100 ML INFUS..BTL INJ ONE (21:50)
[2023-07-18] MEDS: MELATONIN 3 MG TAB PO SCH (22:02)
[2023-07-18] MEDS: SODIUM CHLORIDE 0.9% 1000ML 1,000 ML IV SCH (22:29)
[2023-07-19] VITALS (7 sets, daily range): BP systolic 131–169; BP diastolic 60–74; PULSE 57–76; RESP 16–18; TEMP 97.2–98.4; O2SAT 99–100
[2023-07-19 06:22] LABS: BASOPHILS % 0.7 % (0.0-1.0); EOSINOPHILS # (AUTO) 0.1 (0.0-0.4); EOSINOPHILS % 1.5 % (0.0-6.0); HEMATOCRIT 34.8 % (34.2-44.1); HEMOGLOBIN 10.9 g/dL (12.0-16.0); LYMPHOCYTES # (AUTO) 1.4 (1.0-3.2); LYMPHOCYTES % 35.7 % (18.0-39.1); MEAN CORPUSCULAR HEMOGLOBIN 27.7 pg (28-32); MEAN CORPUSCULAR HGB CONC 31.3 g/dL (31-35); MEAN CORPUSCULAR VOLUME 88.3 fL (81-99); MONOCYTES # (AUTO) 0.4 (0.2-0.8); MONOCYTES % 9.7 % (4.4-11.3); NEUTROPHILS # (AUTO) 2.1 (2.1-6.9); NEUTROPHILS % 52.2 % (38.7-80.0); PLATELET COUNT 155 x10e3/uL (140-360); RED BLOOD COUNT 3.94 x10e6/uL (3.6-5.1); RED CELL DISTRIBUTION WIDTH 15.6 % (11.7-14.4); WHITE BLOOD COUNT 4.01 x10e3/uL (4.8-10.8)
[2023-07-19 07:29] LABS: ALBUMIN 3.2 g/dL (3.5-5.0); ALBUMIN/GLOBULIN RATIO 1.3 (0.8-2.0); ANION GAP 9.4 mmol/L (8-16); BILIRUBIN,TOTAL 0.4 mg/dL (0.2-1.2); CALCIUM 8.4 mg/dL (8.4-10.2); CREATININE, SERUM 0.8 mg/dL (0.57-1.11); TOTAL PROTEIN 5.7 g/dL (6.5-8.1)
[2023-07-19 07:30] LABS: POTASSIUM 3.4 mmol/L (3.5-5.1)
[2023-07-19 09:21] LABS: THYROID STIMULATING HORMONE 0.99 uIU/mL (0.350-4.940)
[2023-07-19] MEDS: ACETAMINOPHEN 325 MG TAB PO PRN (09:57)
[2023-07-19] MEDS: SODIUM CHLORIDE 0.9% 1000ML 1,000 ML IV SCH (09:57)
[2023-07-19] MEDS ORDERED: HYDROCODONE/APAP 10MG-325MG TAB PO PRN (11:30)
[2023-07-19] MEDS: DULOXETINE HCL 20 MG DELAYED RELEASE PO SCH (12:48)
[2023-07-19] MEDS: PANTOPRAZOLE SOD 40 MG TABEC PO SCH (12:49)
[2023-07-19] MEDS ORDERED: SIMETHICONE 80 MG CHEW PO PRN (14:45)
[2023-07-19] MEDS ORDERED: SIMETHICONE 80 MG CHEW PO ONE (15:15)
[2023-07-19] MEDS: LOSARTAN POTASSIUM 25 MG TAB PO SCH (18:45)
[2023-07-19] MEDS: PREGABALIN 75 MG CAP PO SCH ×3 (18:45→21:00)
[2023-07-19] MEDS: MELATONIN 3 MG TAB PO SCH (20:49)
[2023-07-20] VITALS (7 sets, daily range): BP systolic 141–178; BP diastolic 68–80; PULSE 66–81; RESP 16–20; TEMP 97.2–98.3; O2SAT 96–100
[2023-07-20] MEDS: DULOXETINE HCL 20 MG DELAYED RELEASE PO SCH (08:36)
[2023-07-20] MEDS: LOSARTAN POTASSIUM 25 MG TAB PO SCH (08:37)
[2023-07-20] MEDS: PANTOPRAZOLE SOD 40 MG TABEC PO SCH (08:37)
[2023-07-20] MEDS: PREGABALIN 75 MG CAP PO SCH ×4 (08:37→21:45)
[2023-07-20 08:39] LABS: BASOPHILS % 0.6 % (0.0-1.0); EOSINOPHILS # (AUTO) 0.1 (0.0-0.4); EOSINOPHILS % 2.2 % (0.0-6.0); HEMATOCRIT 36.6 % (34.2-44.1); HEMOGLOBIN 11.6 g/dL (12.0-16.0); LYMPHOCYTES # (AUTO) 1.2 (1.0-3.2); LYMPHOCYTES % 32.9 % (18.0-39.1); MEAN CORPUSCULAR HEMOGLOBIN 28.2 pg (28-32); MEAN CORPUSCULAR HGB CONC 31.7 g/dL (31-35); MEAN CORPUSCULAR VOLUME 89.1 fL (81-99); MONOCYTES # (AUTO) 0.4 (0.2-0.8); MONOCYTES % 10.1 % (4.4-11.3); NEUTROPHILS # (AUTO) 1.9 (2.1-6.9); NEUTROPHILS % 53.9 % (38.7-80.0); PLATELET COUNT 164 x10e3/uL (140-360); RED BLOOD COUNT 4.11 x10e6/uL (3.6-5.1); RED CELL DISTRIBUTION WIDTH 15.4 % (11.7-14.4); WHITE BLOOD COUNT 3.56 x10e3/uL (4.8-10.8)
[2023-07-20 09:06] LABS: ALBUMIN 3.5 g/dL (3.5-5.0); ALBUMIN/GLOBULIN RATIO 1.3 (0.8-2.0); ANION GAP 10.8 mmol/L (8-16); BILIRUBIN,TOTAL 0.4 mg/dL (0.2-1.2); CALCIUM 8.6 mg/dL (8.4-10.2); CREATININE, SERUM 0.71 mg/dL (0.57-1.11); POTASSIUM 3.8 mmol/L (3.5-5.1); TOTAL PROTEIN 6.2 g/dL (6.5-8.1)
[2023-07-20] MEDS: ACETAMINOPHEN 325 MG TAB PO PRN (09:31)
[2023-07-20] MEDS: SENNOSIDES 8.6 MG TAB PO SCH ×2 (11:40→17:11)
[2023-07-20 12:55] LABS: CHOL/HDL RATIO 3.2 (3.0-3.6)
[2023-07-20 15:59] LABS: CLARITY,URINE CLOUDY (CLEAR); COLOR,URINE YELLOW (YELLOW); GLUCOSE, URINE NEGATIVE (NEGATIVE); KETONES,URINE TRACE (NEGATIVE); LEUKOCYTE ESTERASE ,URINE TRACE (NEGATIVE); NITRITE,URINE POSITIVE (NEGATIVE); PH,URINE 5.5 (5 - 7); PROTEIN,URINE DIPSTICK NEGATIVE (NEGATIVE); URINE UROBILINOGEN 0.2 mg/dL (0.2 - 1)
[2023-07-20 16:00] LABS: BILIRUBIN,URINE 1+ (NEGATIVE)
[2023-07-20 16:09] LABS: BACTERIA,URINE MANY /HPF; EPITHELIAL CELLS,URINE FEW /LPF; RBC,URINE 0-5 /HPF (0-5); WBC,URINE (MAN) 21-50 /HPF (0-5)
[2023-07-20] MEDS: MELATONIN 3 MG TAB PO SCH (21:45)
[2023-07-21] VITALS (8 sets, daily range): BP systolic 136–176; BP diastolic 66–78; PULSE 66–76; RESP 18–20; TEMP 97.1–98.3; O2SAT 96–100
[2023-07-21] MEDS: ACETAMINOPHEN 325 MG TAB PO PRN ×2 (02:47→09:49)
[2023-07-21 08:39] LABS: BASOPHILS % 0.5 % (0.0-1.0); EOSINOPHILS # (AUTO) 0.1 (0.0-0.4); HEMATOCRIT 37.6 % (34.2-44.1); HEMOGLOBIN 12.1 g/dL (12.0-16.0); LYMPHOCYTES # (AUTO) 1.4 (1.0-3.2); LYMPHOCYTES % 32.4 % (18.0-39.1); MEAN CORPUSCULAR HEMOGLOBIN 28.2 pg (28-32); MEAN CORPUSCULAR HGB CONC 32.2 g/dL (31-35); MEAN CORPUSCULAR VOLUME 87.6 fL (81-99); MONOCYTES # (AUTO) 0.4 (0.2-0.8); NEUTROPHILS # (AUTO) 2.5 (2.1-6.9); NEUTROPHILS % 55.9 % (38.7-80.0); PLATELET COUNT 172 x10e3/uL (140-360); RED BLOOD COUNT 4.29 x10e6/uL (3.6-5.1); RED CELL DISTRIBUTION WIDTH 15.4 % (11.7-14.4); WHITE BLOOD COUNT 4.44 x10e3/uL (4.8-10.8)
[2023-07-21 09:12] LABS: ALBUMIN 3.4 g/dL (3.5-5.0); ALBUMIN/GLOBULIN RATIO 1.2 (0.8-2.0); ANION GAP 10.5 mmol/L (8-16); BILIRUBIN,TOTAL 0.4 mg/dL (0.2-1.2); CALCIUM 8.6 mg/dL (8.4-10.2); CREATININE, SERUM 0.73 mg/dL (0.57-1.11); POTASSIUM 3.5 mmol/L (3.5-5.1); TOTAL PROTEIN 6.2 g/dL (6.5-8.1)
[2023-07-21] MEDS: SENNOSIDES 8.6 MG TAB PO SCH ×2 (09:45→17:00)
[2023-07-21] MEDS: DULOXETINE HCL 20 MG DELAYED RELEASE PO SCH (09:45)
[2023-07-21] MEDS: LOSARTAN POTASSIUM 25 MG TAB PO SCH (09:45)
[2023-07-21] MEDS: PREGABALIN 75 MG CAP PO SCH ×4 (09:45→20:19)
[2023-07-21] MEDS: PANTOPRAZOLE SOD 40 MG TABEC PO SCH (09:45)
[2023-07-21] MEDS ORDERED: BISACODYL 10 MG SUPP PR ONE (12:30)
[2023-07-21] MEDS: POLYETHYLENE GLYCOL 3350 17 GM PACK PO SCH (14:23)
[2023-07-21] MEDS ORDERED: BISACODYL 10 MG SUPP PR PRN (17:15)
[2023-07-21] MEDS: MELATONIN 3 MG TAB PO SCH (20:19)
[2023-07-22] VITALS (13 sets, daily range): BP systolic 121–167; BP diastolic 56–92; PULSE 61–88; RESP 16–18; TEMP 97.4–98.5; O2SAT 96–100
[2023-07-22] MEDS: ACETAMINOPHEN 325 MG TAB PO PRN ×3 (02:08→21:19)
[2023-07-22 06:16] LABS: BASOPHILS % 0.4 % (0.0-1.0); EOSINOPHILS # (AUTO) 0.1 (0.0-0.4); EOSINOPHILS % 2.1 % (0.0-6.0); HEMATOCRIT 36.1 % (34.2-44.1); HEMOGLOBIN 11.3 g/dL (12.0-16.0); LYMPHOCYTES # (AUTO) 1.7 (1.0-3.2); LYMPHOCYTES % 35.7 % (18.0-39.1); MEAN CORPUSCULAR HEMOGLOBIN 27.6 pg (28-32); MEAN CORPUSCULAR HGB CONC 31.3 g/dL (31-35); MEAN CORPUSCULAR VOLUME 88.3 fL (81-99); MONOCYTES # (AUTO) 0.5 (0.2-0.8); MONOCYTES % 9.7 % (4.4-11.3); NEUTROPHILS # (AUTO) 2.5 (2.1-6.9); NEUTROPHILS % 51.9 % (38.7-80.0); PLATELET COUNT 169 x10e3/uL (140-360); RED BLOOD COUNT 4.09 x10e6/uL (3.6-5.1); RED CELL DISTRIBUTION WIDTH 15.8 % (11.7-14.4); WHITE BLOOD COUNT 4.76 x10e3/uL (4.8-10.8)
[2023-07-22 06:28] LABS: ALBUMIN 3.2 g/dL (3.5-5.0); ALBUMIN/GLOBULIN RATIO 1.2 (0.8-2.0); ANION GAP 10.7 mmol/L (8-16); BILIRUBIN,TOTAL 0.3 mg/dL (0.2-1.2); CALCIUM 8.7 mg/dL (8.4-10.2); CREATININE, SERUM 0.82 mg/dL (0.57-1.11); POTASSIUM 3.7 mmol/L (3.5-5.1); TOTAL PROTEIN 5.9 g/dL (6.5-8.1)
[2023-07-22] MEDS: SENNOSIDES 8.6 MG TAB PO SCH (09:00)
[2023-07-22] MEDS: PREGABALIN 75 MG CAP PO SCH ×4 (09:00→21:19)
[2023-07-22] MEDS: DULOXETINE HCL 20 MG DELAYED RELEASE PO SCH (09:00)
[2023-07-22] MEDS: PANTOPRAZOLE SOD 40 MG TABEC PO SCH (09:02)
[2023-07-22] MEDS: POLYETHYLENE GLYCOL 3350 17 GM PACK PO SCH (09:02)
[2023-07-22] MEDS: LOSARTAN POTASSIUM 25 MG TAB PO SCH (09:02)
[2023-07-22] MEDS: SODIUM CHLORIDE 0.9% 1000ML 1,000 ML IV SCH (11:43)
[2023-07-22] MEDS: MELATONIN 3 MG TAB PO SCH (21:19)
[2023-07-23] VITALS: BP 140/84; PULSE 75; RESP 20; TEMP 97.6; O2SAT 99
[2023-07-23] MEDS: ACETAMINOPHEN 325 MG TAB PO PRN ×2 (00:33→08:49)
[2023-07-23] MEDS: SODIUM CHLORIDE 0.9% 1000ML 1,000 ML IV SCH ×2 (03:15→08:00)
[2023-07-23 04:00] VITALS: BP_SYST 154; BP_SYST 166; BP_SYST 177; BP_DIAS 69; BP_DIAS 76; BP_DIAS 83; PULSE 70; PULSE 71; PULSE 74; RESP 20; TEMP 98.1; O2SAT 100; O2SAT 97; O2SAT 99
[2023-07-23 07:19] LABS: BASOPHILS % 0.5 % (0.0-1.0); EOSINOPHILS # (AUTO) 0.1 (0.0-0.4); EOSINOPHILS % 2.1 % (0.0-6.0); HEMATOCRIT 36.2 % (34.2-44.1); HEMOGLOBIN 11.4 g/dL (12.0-16.0); LYMPHOCYTES # (AUTO) 1.6 (1.0-3.2); LYMPHOCYTES % 36.5 % (18.0-39.1); MEAN CORPUSCULAR HEMOGLOBIN 28.1 pg (28-32); MEAN CORPUSCULAR HGB CONC 31.5 g/dL (31-35); MEAN CORPUSCULAR VOLUME 89.2 fL (81-99); MONOCYTES # (AUTO) 0.4 (0.2-0.8); MONOCYTES % 10.2 % (4.4-11.3); NEUTROPHILS # (AUTO) 2.2 (2.1-6.9); NEUTROPHILS % 50.5 % (38.7-80.0); PLATELET COUNT 162 x10e3/uL (140-360); RED BLOOD COUNT 4.06 x10e6/uL (3.6-5.1); RED CELL DISTRIBUTION WIDTH 15.9 % (11.7-14.4)
[2023-07-23 07:42] LABS: ALBUMIN 3.2 g/dL (3.5-5.0); ALBUMIN/GLOBULIN RATIO 1.2 (0.8-2.0); ANION GAP 10.7 mmol/L (8-16); BILIRUBIN,TOTAL 0.2 mg/dL (0.2-1.2); CALCIUM 8.7 mg/dL (8.4-10.2); CREATININE, SERUM 0.72 mg/dL (0.57-1.11); POTASSIUM 3.7 mmol/L (3.5-5.1); TOTAL PROTEIN 5.8 g/dL (6.5-8.1)
[2023-07-23] MEDS ORDERED: MACROBID 100 M100 MG PO (08:10)
[2023-07-23] MEDS ORDERED: CYMBALTA20 MG PO (08:10)
[2023-07-23 08:20] VITALS: BP 177/67; PULSE 68; RESP 19; TEMP 98.4; O2SAT 97
[2023-07-23] MEDS: PANTOPRAZOLE SOD 40 MG TABEC PO SCH (08:48)
[2023-07-23] MEDS: LOSARTAN POTASSIUM 25 MG TAB PO SCH (08:48)
[2023-07-23] MEDS: PREGABALIN 75 MG CAP PO SCH (08:48)
[2023-07-23] MEDS: DULOXETINE HCL 20 MG DELAYED RELEASE PO SCH (08:49)
[2023-07-23] MEDS: POLYETHYLENE GLYCOL 3350 17 GM PACK PO SCH (08:49)
[2023-07-23 08:53] VITALS: BP 177/67; PULSE 68; RESP 19; TEMP 98.4; O2SAT 97
[2023-07-23 12:30] VITALS: BP 149/62; PULSE 64; RESP 18; TEMP 98.3; O2SAT 99
== END 2023-07-23 14:28 | disposition home or self-care (01) | DRG 690 ==
LOC: MED/SURG3 14:10
PROVIDERS: ADMIT Family Medicine Adult Medicine; ATTEND Family Medicine Adult Medicine
DX: N39.0 Urinary tract infection, site not specified (principal); Z16.24 Resistance to multiple antibiotics; R53.1 Weakness; I95.1 Orthostatic hypotension; W19.XXXA Unspecified fall, initial encounter; Y92.9 Unspecified place or not applicable; I12.9 Hypertensive chronic kidney disease with stage 1 through stage 4 chronic kidney disease, or unspecified chronic kidney disease; N18.30 Chronic kidney disease, stage 3 unspecified; E78.5 Hyperlipidemia, unspecified; G20.A1 Parkinson's disease without dyskinesia, without mention of fluctuations; G24.01 Drug induced subacute dyskinesia; E03.9 Hypothyroidism, unspecified; G47.00 Insomnia, unspecified; F41.9 Anxiety disorder, unspecified; F32.A Depression, unspecified; B96.20 Unspecified Escherichia coli [E. coli] as the cause of diseases classified elsewhere; R53.83 Other fatigue; G89.29 Other chronic pain; I87.2 Venous insufficiency (chronic) (peripheral); T50.995A Adverse effect of other drugs, medicaments and biological substances, initial encounter; K59.09 Other constipation; Y92.89 Other specified places as the place of occurrence of the external cause; Z98.84 Bariatric surgery status; Z79.890 Hormone replacement therapy; M25.519 Pain in unspecified shoulder
CPT/HCPCS: 36415; 71045; 71260; 72050; 74177; 80053; 80061; 81001; 83690; 83880; 84443; 84484; 85025; 87086; 87186; 93005; 99252; J0696; J7030; Q9967

== ENCOUNTER → 2023-11-04 | Outpatient (REF) | payer MEDICARE ==
[~2023-11-04] MED LIST changes: +CYMBALTA20 MG PO; +LORATADINE10 MG PO; +LYRICA75 MG PO; +MACROBID 100 M100 MG PO; +MECLIZINE HCL12.5 MG PO; +TIZANIDINE HCL4 M1 PO; +TRIAMCINOLONE A15 G1 TOP; +Vitamin B12 SQ
== END ==
LOC: DX 08:53
PROVIDERS: ATTEND Family Medicine Adult Medicine
DX: R10.9 Unspecified abdominal pain (principal)
CPT/HCPCS: 74246; 74250